=== PATIENT | female | born 1960 ===

== ENCOUNTER 2017-04-10 17:03 | Emergency (ER) | payer MEDICARE ==
[2017-04-10 17:04] VITALS: BMI 313171.9
[2017-04-10 17:13] VITALS: BP 136/85; PULSE 78; RESP 15; TEMP 98.2; O2SAT 95
[2017-04-10] MEDS ORDERED: Sodium Chloride 0.9% 1,000 ML IV ONE (17:41)
[2017-04-10] MEDS ORDERED: Alum-Mag Hydrox-Simethicone Susp (30 mL) PO STA (17:43)
[2017-04-10] MEDS ORDERED: Belladonna-Phenobarbital PO STA (17:43)
--- NOTE | 2017-04-10 17:49 | C.PDOC ---
History Of Present Illness 56 y/o female with PMHx of Gastritis presents to ED with recurrence of abdominal pain for 4 days, N/V/D, headache and dizziness. Patient reports subjective fever last night and took Pepto bismol with no relief. Symptoms previously developed prior to traveling to [facility] 3 months ago where she was hospitalized and treated with antibiotics for stomach infection. No other complaints at this time Time Seen by Provider: 04/10/17 17:32 Chief Complaint (Nursing): Abdominal Pain History Per: Patient History/Exam Limitations: no limitations Onset/Duration Of Symptoms: Days Associated Symptoms: Nausea, Vomiting, Diarrhea Exacerbating Factors: Food Past Medical History Reviewed: Historical Data, Nursing Documentation, Vital Signs Vital Signs: Last Vital Signs Temp 98.2 F 04/10/17 17:08 Pulse 78 04/10/17 17:08 Resp 15 04/10/17 17:08 BP 136/85 04/10/17 17:08 Pulse Ox 95 04/10/17 18:31 - Medical History PMH: Anxiety, Arthritis, Asthma, Depression, Diabetes, Gastritis, HTN, Hypercholesterolemia, Kidney Stones, Migraine, Chronic Kidney Disease Surgical History: Appendectomy, Endoscopy - [facility] Procedures CYSTOSCOPY NEC (08/09/01) INJECT/INFUSE ELECTROLYT (04/12/12) INJECT/INFUSE NEC (04/12/12) INSERT INDWELLING CATH (06/15/13) OTHER ENDOSCOPY OF SM INTEST (07/16/12) URETERAL CATHETERIZATION (08/09/01) Family History: States: Unknown Family Hx - Social History Hx Tobacco Use: No Hx Alcohol Use: No Hx Substance Use: No - Immunization History Hx Tetanus Toxoid Vaccination: No Hx Influenza Vaccination: No Hx Pneumococcal Vaccination: No Review Of Systems Constitutional: Positive for: Fever Cardiovascular: Negative for: Chest Pain Respiratory: Negative for: Shortness of Breath Gastrointestinal: Positive for: Nausea, Vomiting, Abdominal Pain, Diarrhea. Negative for: Constipation, Melena, Hematochezia, Hematemesis, Rectal Pain Genitourinary: Negative for: Dysuria Musculoskeletal: Negative for: Back Pain Neurological: Positive for: Headache, Dizziness. Negative for: Weakness Physical Exam - Physical Exam Appears: Non-toxic, No Acute Distress Skin: Warm, Dry, No Diaphoretic, No Pale, No Rash Head: Atraumatic, Normacephalic Eye(s): bilateral: Normal Inspection, EOMI Oral Mucosa: Moist Neck: Normal ROM Chest: Symmetrical Cardiovascular: Rhythm Regular Respiratory: Normal Breath Sounds, No Rales, No Rhonchi, No Wheezing Gastrointestinal/Abdominal: Soft, Tenderness (Epigastric tenderness), No Mass, No Distention, No Guarding, No Rebound Extremity: Bilateral: Atraumatic, No Pedal Edema, Normal Color And Temperature, Normal ROM Neurological/Psych: Oriented x3, Normal Speech, Normal Cognition, Other (No focal deficits) Gait: Steady ED Course And Treatment - Laboratory Results Result Diagrams: 04/10/17 17:50 04/10/17 17:50 Lab Interpretation: No Acute Changes O2 Sat by Pulse Oximetry: 95 (Room air ) Pulse Ox Interpretation: Normal Medical Decision Making Medical Decision Making: Impression: Abdominal pain epigastric, and history of gastritis, and likely H. pylori Plan: Labs, IV NS, GI cocktail Progress: Labs reviewed and unremarkable. Upon reevaluation, patient resting comfortably in no acute distress. Patient reports improvement of symptoms, no longer having abdominal pain or nausea. Patient feels comfortable going home and will be discharged. Patient given follow up instructions. Instructed to return to ER if symptoms worsen or new symptoms arise. Disposition Counseled Patient/Family Regarding: Diagnosis, Need For Followup, Rx Given - Disposition Referrals: Juan Antonio Chase MD [Staff Provider] - Chantal Boo MD [Staff Provider] - Disposition: HOME/ ROUTINE Disposition Time: 18:30 Condition: STABLE Additional Instructions: Vaya a hernandez mdico o la clnica en 2-5 diaz sin falta, para mas evaluacin. [place] los medicamentos kimo indicado. Volver a la светлана de emergencia en cualquier momento si los sntomas persisten o empeoran. Prescriptions: Ranitidine HCl 150 mg PO DAILY #30 tablet Instructions: Gastritis (DC) Print Language: POLISH - POA Present On Arrival: None - Clinical Impression Clinical Impression: Gastritis - PA / LATH HAND / Resident Statement MD/DO has reviewed & agrees with the documentation as recorded. - Scribe Statement The provider has reviewed the documentation as recorded by the Scribe Sanchez Campa All medical record entries made by the Scribe were at my direction and personally dictated by me. I have reviewed the chart and agree that the record accurately reflects my personal performance of the history, physical exam, medical decision making, and the department course for this patient. I have also personally directed, reviewed, and agree with the discharge instructions and disposition.
[2017-04-10] MEDS ORDERED: Sodium Chloride 0.9% 1,000 ML ONE (17:51)
[2017-04-10] MEDS ORDERED: Belladonna-Phenobarbital ONE (17:51)
[2017-04-10] MEDS ORDERED: Alum-Mag Hydrox-Simethicone Susp (30 mL) ONE (17:51)
[2017-04-10 18:03] LABS: BASO % 0.5 % (0.0-2.0); EOS % 0.4 % (0.0-4.0); HEMATOCRIT 35.4 % (34.0-47.0); LYMPH # 2.3 K/uL (1.0-4.3); LYMPH % 33.6 % (20.0-40.0); MEAN CORPUSCULAR HEMOGLOBIN 28.2 pg (27.0-31.0); MEAN CORPUSCULAR HGB CONC 32.8 g/dL (33.0-37.0); MONO # 0.9 K/uL (0.0-0.8); MONO % 13.4 % (0.0-10.0); RED CELL DISTRIBUTION WIDTH 12.6 % (11.5-14.5); WHITE BLOOD COUNT 6.9 K/uL (4.8-10.8)
[2017-04-10 18:15] LABS: CHLORIDE 97 mmol/L (98-107); POTASSIUM 3.7 mmol/L (3.6-5.2); SODIUM 139 mmol/L (132-148)
[2017-04-10 18:17] LABS: AST/SGOT 61 U/L (14-36); BILIRUBIN,TOTAL 0.5 mg/dL (0.2-1.3); CARBON DIOXIDE 34 mmol/L (22-30); GFR AFRICAN-AMERICAN > 60
[2017-04-10 18:18] LABS: ALB/GLOB RATIO 1.2 (1.0-2.1); ALKALINE PHOSPHATASE 53 U/L (38-126); ALT/SGPT 73 U/L (9-52); BLOOD UREA NITROGEN 10 mg/dL (7-17); CALCIUM 8.8 mg/dl (8.6-10.4); GLUCOSE,RANDOM 148 mg/dL (65-105); TOTAL PROTEIN 7.5 g/dL (6.3-8.3)
[2017-04-10 18:20] LABS: RBC URINE 2 /hpf (0-3); URINE BACTERIA OCC (<OCC); URINE BILIRUBIN NEGATIVE (NEGATIVE); URINE BLOOD NEGATIVE (NEGATIVE); URINE COLOR Yellow (YELLOW); URINE GLUCOSE (UA) NORMAL (Normal); URINE KETONE NEGATIVE (NEGATIVE); URINE LEUKOCYTE ESTERASE NEG Leu/uL (Negative); URINE PROTEIN 1+ mg/dL (NEGATIVE); URINE UROBILINOGEN NORMAL mg/dL (0.2-1.0); WBC URINE 2 /hpf (0-5)
== END 2017-04-10 18:40 | disposition home or self-care (01) ==
LOC: C.ER 17:03
DX: K29.70 Gastritis, unspecified, without bleeding (principal)
CPT/HCPCS: 80053; 81001; 83690; 85025; 96361; 96374; 96375; 99284; J2405; J7040

== ENCOUNTER 2017-05-02 16:08 | Emergency (ER) | payer MEDICARE ==
[2017-05-02 16:08] VITALS: BMI 313171.9
--- NOTE | 2017-05-02 16:43 | C.PDOC ---
History Of Present Illness 56 y/o female pmhx asthma, HTN and pulmonary embolism presents to the ED with complaints of body aches, pressure in her neck and shoulders, swelling to hands , feet and face and chest pain. 3 days ago, pt states she woke up with pressure to back of her neck which radiated to her shoulders and down her back; and pain to finger nails and toe nails. Pt reports difficulty ambulating due to pain; also reports feeling dizzy. Yesterday, sharp intermittent chest pain onset to center of chest 06/25. Pain increases with movement of chest wall. Pt concerned considering history of PE so came to ED for evaluation. Pt denies SOB, fever, nausea, vomiting, abdominal pain or any other complaints. Time Seen by Provider: 05/02/17 16:18 Chief Complaint (Nursing): Chest Pain History Per: Patient History/Exam Limitations: no limitations Onset/Duration Of Symptoms: Days Current Symptoms Are (Timing): Still Present Severity: Severe Pain Scale Rating Of: 8 Quality: Sharp Exacerbating Factors: Movement Alleviating Factors: None Recent travel outside of the [place]: No Past Medical History Reviewed: Historical Data, Nursing Documentation, Vital Signs - Medical History PMH: Anxiety, Arthritis, Asthma, Depression, Diabetes, Gastritis, HTN, Hypercholesterolemia, Kidney Stones, Migraine, Chronic Kidney Disease Surgical History: Appendectomy, Endoscopy - [facility] Procedures CYSTOSCOPY NEC (08/09/01) INJECT/INFUSE ELECTROLYT (04/12/12) INJECT/INFUSE NEC (04/12/12) INSERT INDWELLING CATH (06/15/13) OTHER ENDOSCOPY OF SM INTEST (07/16/12) URETERAL CATHETERIZATION (08/09/01) Family History: States: Unknown Family Hx - Social History Hx Tobacco Use: No Hx Alcohol Use: No Hx Substance Use: No - Immunization History Hx Tetanus Toxoid Vaccination: No Hx Influenza Vaccination: No Hx Pneumococcal Vaccination: No Review Of Systems Except As Marked, All Systems Reviewed And Found Negative. Constitutional: Negative for: Fever, Chills Cardiovascular: Positive for: Chest Pain, Edema (swelling to hands, feet and face) Respiratory: Negative for: Shortness of Breath Gastrointestinal: Negative for: Nausea, Vomiting, Abdominal Pain Musculoskeletal: Positive for: Other (pressure to back of neck and shoulders; pain to finger and toe nails) Physical Exam - Physical Exam Appears: Non-toxic, No Acute Distress Skin: Warm, Dry, No Rash Head: Atraumatic, Normacephalic Ear(s): Bilateral: Normal Nose: Normal Oral Mucosa: Moist Throat: Normal, No Erythema Neck: Normal, Normal ROM, No Midline Cervical Tenderness, No Paracervical Tenderness, Supple Chest: Symmetrical, Tenderness (mid chest wall) Cardiovascular: Rhythm Regular, No Murmur Respiratory: Normal Breath Sounds, No Accessory Muscle Use, No Rales, No Rhonchi , No Wheezing Gastrointestinal/Abdominal: Normal Exam, Soft, No Tenderness, Other (obese) Extremity: Normal ROM, No Pedal Edema, Other (no pitting edema noted) Extremity: Bilateral: Atraumatic Pulses: Left Dorsalis Pedis: Normal, Right Dorsalis Pedis: Normal Neurological/Psych: Oriented x3, Normal Speech, Normal Cognition ED Course And Treatment - Laboratory Results Result Diagrams: 05/02/17 16:57 05/02/17 16:57 Progress Note: Upon further discussion patient reveals similar pains in neck, shoulders and back many times in the past. Pt seen by specialist with MRI done, told has "disc problems." Pt also reports similar episodes of dizziness and feeling unsteady in the past for which she has been evaluated by her physician. Medical Decision Making Medical Decision Making: patient feeling better, she will be discharged pending the arrival of daughter Normal Abrahan, cory PE Disposition Counseled Patient/Family Regarding: Studies Performed, Diagnosis - Disposition Referrals: Chantal Boo MD [Staff Provider] - Disposition: HOME/ ROUTINE Disposition Time: 18:44 Condition: STABLE Prescriptions: traMADol/Acetaminophen [Ultracet 37.5/325 mg] 1 tab PO TID PRN #15 tab PRN Reason: pain Instructions: Back Pain (ED) Forms: Gen Discharge Inst Brazilian - POA Present On Arrival: None - Clinical Impression Clinical Impression: Chest discomfort, Back pain - Scribe Statement The provider has reviewed the documentation as recorded by the Vincent Senior Provider Attestation: All medical record entries made by the Vincent were at my direction and personally dictated by me. I have reviewed the chart and agree that the record accurately reflects my personal performance of the history, physical exam, medical decision making, and the department course for this patient. I have also personally directed, reviewed, and agree with the discharge instructions and disposition.
[2017-05-02] MEDS ORDERED: Aspirin 325 mg EC Tablets PO STA (16:54)
[2017-05-02] MEDS ORDERED: Aspirin 325 mg EC Tablets PO ONE (17:00)
[2017-05-02 17:02] LABS: BASO % 0.4 % (0.0-2.0); EOS % 0.3 % (0.0-4.0); HEMATOCRIT 34.9 % (34.0-47.0); LYMPH % 32.1 % (20.0-40.0); MEAN CORPUSCULAR HEMOGLOBIN 28.1 pg (27.0-31.0); MEAN CORPUSCULAR HGB CONC 32.3 g/dL (33.0-37.0); MONO # 0.7 K/uL (0.0-0.8); MONO % 11.1 % (0.0-10.0); RED CELL DISTRIBUTION WIDTH 13.2 % (11.5-14.5); WHITE BLOOD COUNT 6.2 K/uL (4.8-10.8)
[2017-05-02 17:14] LABS: CHLORIDE 101 mmol/L (98-107); POTASSIUM 4.2 mmol/L (3.6-5.2); SODIUM 139 mmol/L (132-148)
[2017-05-02 17:16] LABS: GFR AFRICAN-AMERICAN > 60
[2017-05-02 17:17] LABS: ALB/GLOB RATIO 1.3 (1.0-2.1); ALKALINE PHOSPHATASE 46 U/L (38-126); ALT/SGPT 32 U/L (9-52); AST/SGOT 30 U/L (14-36); BILIRUBIN,TOTAL 0.5 mg/dL (0.2-1.3); BLOOD UREA NITROGEN 13 mg/dL (7-17); CARBON DIOXIDE 29 mmol/L (22-30); GLUCOSE,RANDOM 139 mg/dL (65-105); TOTAL PROTEIN 7.1 g/dL (6.3-8.3)
[2017-05-02 17:18] LABS: CALCIUM 9.5 mg/dl (8.6-10.4)
--- NOTE | 2017-05-02 17:23 | RAD ---
PROCEDURE: CHEST RADIOGRAPH, 1 VIEW HISTORY: Chest pain COMPARISON: 11/14/2016. FINDINGS: LUNGS: The lungs are well inflated and clear. PLEURA: No pneumothorax or pleural fluid seen. CARDIOVASCULAR: Normal. OSSEOUS STRUCTURES: No significant abnormalities. VISUALIZED UPPER ABDOMEN: Normal. OTHER FINDINGS: None. IMPRESSION: No active pulmonary no disease.
[2017-05-02 19:21] VITALS: BP 110/75; PULSE 85; RESP 18; TEMP 97.9; O2SAT 99
--- NOTE | 2017-05-05 21:32 | CARD ---
APPROVED REPORT EKG Measurement Heart [id number] <Conclusion> Normal sinus rhythm Normal ECG
== END 2017-05-02 20:15 | disposition home or self-care (01) ==
LOC: C.ER 16:08
DX: M54.9 Dorsalgia, unspecified (principal); R07.89 Other chest pain; I12.9 Hypertensive chronic kidney disease with stage 1 through stage 4 chronic kidney disease, or unspecified chronic kidney disease; N18.9 Chronic kidney disease, unspecified; E11.9 Type 2 diabetes mellitus without complications; E78.00 Pure hypercholesterolemia, unspecified; M19.90 Unspecified osteoarthritis, unspecified site
CPT/HCPCS: 71010; 80053; 83880; 84484; 85025; 85378; 93005; 96374; 99284; G0480; J1885

== ENCOUNTER 2017-08-21 14:05 | Emergency (ER) | payer MEDICARE ==
[2017-08-21 14:05] VITALS: BMI 313171.9
[2017-08-21] MEDS ORDERED: Sodium Chloride 0.9% 1,000 ML IV ONE (15:20)
--- NOTE | 2017-08-21 15:38 | C.PDOC ---
History Of Present Illness 56 y/o female with past medical history of DM, HTN, HLD, Asthma and Gastritis presents to ED with complaints of abdominal pain since yesterday with associated x4 episodes of vomiting. Patient states last 3 episodes of vomiting had "some blood in it". Patient denies recent travel, fever, chills, diarrhea, back pain or any other complaints at this time. PMD: Dr. Jayce Edwards Time Seen by Provider: 08/21/17 14:50 Chief Complaint (Nursing): Abdominal Pain History Per: Patient History/Exam Limitations: no limitations Onset/Duration Of Symptoms: Days Current Symptoms Are (Timing): Still Present Location Of Pain/Discomfort: Epigastric Past Medical History Reviewed: Historical Data, Nursing Documentation, Vital Signs Vital Signs: Last Vital Signs Temp 97.7 F 08/21/17 19:26 Pulse 79 08/21/17 19:26 Resp 18 08/21/17 19:26 BP 111/78 08/21/17 19:26 Pulse Ox 97 08/21/17 19:26 - Medical History PMH: Anxiety, Arthritis, Asthma, Depression, Diabetes, Gastritis, HTN, Hypercholesterolemia, Kidney Stones, Migraine, Pulmonary Embolism, Chronic Kidney Disease Surgical History: Appendectomy, Endoscopy - [facility] Procedures CYSTOSCOPY NEC (08/09/01) INJECT/INFUSE ELECTROLYT (04/12/12) INJECT/INFUSE NEC (04/12/12) INSERT INDWELLING CATH (06/15/13) OTHER ENDOSCOPY OF SM INTEST (07/16/12) URETERAL CATHETERIZATION (08/09/01) Family History: States: No Known Family Hx - Social History Hx Tobacco Use: No Hx Alcohol Use: No Hx Substance Use: No - Immunization History Hx Tetanus Toxoid Vaccination: No Hx Influenza Vaccination: No Hx Pneumococcal Vaccination: No Review Of Systems Except As Marked, All Systems Reviewed And Found Negative. Gastrointestinal: Positive for: Vomiting, Abdominal Pain Physical Exam - Physical Exam Appears: Non-toxic, No Acute Distress Skin: Normal Color, Warm, Dry, No Rash Head: Atraumatic, Normacephalic Oral Mucosa: Moist Neck: Normal ROM, Supple Chest: Symmetrical Cardiovascular: Rhythm Regular Respiratory: Normal Breath Sounds, No Rales, No Rhonchi, No Wheezing Gastrointestinal/Abdominal: Bowel Sounds (Active), Tenderness (Epigastric), No Guarding, No Rebound Extremity: Normal ROM, Capillary Refill (<2 seconds) Neurological/Psych: Oriented x3 ED Course And Treatment - Laboratory Results Result Diagrams: 08/21/17 15:35 08/21/17 15:35 ECG: Interpreted By Me, Viewed By Me ECG Rhythm: Sinus Rhythm Rate From EC (bpm) O2 Sat by Pulse Oximetry: 95 (ra) Pulse Ox Interpretation: Normal Medical Decision Making Medical Decision Making: Plan: CT scan abdomen/pelvic, ECG, UA, Blood work, CXR, IV fluids, Morphine ordered Progress: Patient had Colonoscopy in December 2016 Ct scan reviewed and showed findings not acute Patient discharged home with pain medication and instructed to follow up with PMD Disposition - Disposition Disposition Time: 19:02 Condition: IMPROVED Additional Instructions: follow up with your doctor in 2 days call to make an appointment take medications as prescribed return to hospital if symptoms worsens or progress Prescriptions: Acetaminophen with Codeine [Tylenol with Codeine #3 Tablet] 1 each PO QID #15 tablet Docusate Sodium [Colace] 100 mg PO BID #20 capsule Forms: [employer] (German) - Clinical Impression Clinical Impression: Abdominal pain - Scribe Statement The provider has reviewed the documentation as recorded by the Scribvalentino Campa All medical record entries made by the Winteribvalentino were at my direction and personally dictated by me. I have reviewed the chart and agree that the record accurately reflects my personal performance of the history, physical exam, medical decision making, and the department course for this patient. I have also personally directed, reviewed, and agree with the discharge instructions and disposition.
[2017-08-21 15:40] LABS: BASO % 0.4 % (0.0-2.0); EOS % 0.3 % (0.0-4.0); HEMATOCRIT 35.1 % (34.0-47.0); LYMPH # 2.1 K/uL (1.0-4.3); LYMPH % 25.9 % (20.0-40.0); MEAN CELL VOLUME 86.1 fL (81.0-99.0); MEAN CORPUSCULAR HEMOGLOBIN 28.9 pg (27.0-31.0); MEAN CORPUSCULAR HGB CONC 33.6 g/dL (33.0-37.0); MEAN PLATELET VOLUME 10.3 fL (7.2-11.7); MONO # 0.9 K/uL (0.0-0.8); MONO % 10.5 % (0.0-10.0); NRBC % 0.2 % (0.0-2.0); WHITE BLOOD COUNT 8.1 K/uL (4.8-10.8)
[2017-08-21 15:48] LABS: CHLORIDE 98 mmol/L (98-107); SODIUM 137 mmol/L (132-148)
[2017-08-21 15:49] LABS: POTASSIUM 3.9 mmol/L (3.6-5.2)
[2017-08-21 15:50] LABS: GFR AFRICAN-AMERICAN > 60
[2017-08-21 15:51] LABS: ALKALINE PHOSPHATASE 42 U/L (38-126); ALT/SGPT 46 U/L (9-52); AST/SGOT 28 U/L (14-36); BILIRUBIN,TOTAL 0.5 mg/dL (0.2-1.3); BLOOD UREA NITROGEN 13 mg/dL (7-17); CARBON DIOXIDE 27 mmol/L (22-30); GLUCOSE,RANDOM 91 mg/dL (65-105); TOTAL PROTEIN 8.4 g/dL (6.3-8.3)
[2017-08-21 15:52] LABS: CALCIUM 9.6 mg/dl (8.6-10.4)
[2017-08-21 15:56] LABS: RBC URINE 1 /hpf (0-3); URINE BACTERIA RARE (<OCC); URINE BILIRUBIN NEGATIVE (NEGATIVE); URINE BLOOD NEGATIVE (NEGATIVE); URINE COLOR Yellow (YELLOW); URINE GLUCOSE (UA) NORMAL (Normal); URINE KETONE NEGATIVE (NEGATIVE); URINE LEUKOCYTE ESTERASE NEG Leu/uL (Negative); URINE PROTEIN NEGATIVE (NEGATIVE); URINE UROBILINOGEN NORMAL mg/dL (0.2-1.0); WBC URINE 1 /hpf (0-5)
[2017-08-21] MEDS ORDERED: Iohexol 350mg/ml 100 ML ONE (16:14)
[2017-08-21 17:39] VITALS: RESP 18
[2017-08-21 19:27] VITALS: BP 111/78; PULSE 79; TEMP 97.7
--- NOTE | 2017-08-21 20:01 | RAD ---
PROCEDURE: CHEST RADIOGRAPH, 1 VIEW HISTORY: Abdominal pain COMPARISON: 05/02/2017. FINDINGS: LUNGS: The lungs are well inflated and clear. PLEURA: No pneumothorax or pleural fluid seen. CARDIOVASCULAR: Normal. OSSEOUS STRUCTURES: No significant abnormalities. VISUALIZED UPPER ABDOMEN: Normal. OTHER FINDINGS: None. IMPRESSION: No active pulmonary disease.
--- NOTE | 2017-08-21 20:03 | CT ---
PROCEDURE: CT Abdomen and Pelvis with contrast HISTORY: abd pain COMPARISON: Abdomen pelvis CT with contrast 11/14/2016. TECHNIQUE: Contrast dose: Omnipaque 350, 100 cc Radiation dose: Total exam DLP = 914.44 mGy-cm. This CT exam was performed using one or more of the following dose reduction techniques: Automated exposure control, adjustment of the mA and/or kV according to patient size, and/or use of iterative reconstruction technique. FINDINGS: LOWER THORAX: Small hiatal hernia is identified with the lung bases otherwise unremarkable as imaged. LIVER: There is increased diffuse fatty infiltration liver without focal mass identified. No definite intrahepatic biliary dilatation. GALLBLADDER AND BILE DUCTS: Unremarkable. PANCREAS: Unremarkable. No gross lesion or ductal dilatation. SPLEEN: Unremarkable. ADRENALS: Unremarkable. No mass. KIDNEYS AND URETERS: Punctate intrarenal calculus measures 3 mm at the midpole left kidney with a similar calcified upper pole right kidney. 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 No left hydronephrosis. Mild some right hydroureteronephrosis identified when chronic basis once again. Etiology is unclear as multiple phleboliths are seen near the course of the distal right ureter but not within the right ureter specifically. Urinary bladder is only minimally distended. No intraluminal radiodense calculi are related. VASCULATURE: Unremarkable. No aortic aneurysm. BOWEL: Trace left colonic diverticulosis without diverticulitis. Persistent thickening of the distal rectosigmoid, particularly the right side, remains concerning and further clinical correlation is advised. No obstruction. APPENDIX: No CT evidence to suggest appendicitis. PERITONEUM: Unremarkable. No free fluid. No free air. LYMPH NODES: Unremarkable. No enlarged lymph nodes. BLADDER: Unremarkable. REPRODUCTIVE: Unremarkable. BONES: No acute fracture. OTHER FINDINGS: None. IMPRESSION: 1. Chronic [id number] right hydronephrosis is of indeterminate etiology considered distal right ureteral stricture or loosing calculus. Punctate intrarenal calculi identified bilaterally with no left hydronephrosis apparent. 2. Increased hepatic steatosis without focal mass appreciable. 3. Small hiatal hernia. 4. Trace left colonic diverticulosis without diverticulitis again evident. 5. Persistent rectosigmoid thickening, particularly in the right side of the distal rectum. Clinically core for potential neoplasm.
[2017-08-26 00:41] VITALS: O2SAT 95
== END 2017-08-21 19:55 | disposition home or self-care (01) ==
LOC: C.ER 14:05
DX: R10.9 Unspecified abdominal pain (principal); E11.9 Type 2 diabetes mellitus without complications; I10 Essential (primary) hypertension; E78.5 Hyperlipidemia, unspecified
CPT/HCPCS: 71010; 74177; 80053; 81001; 83690; 84484; 85025; 96374; 96375; 99285; C9113; J2270; J2405; J7040; Q9967

== ENCOUNTER 2017-09-03 14:22 | Emergency (ER) | payer MEDICARE ==
[2017-09-03 14:23] VITALS: BMI 313171.9
[2017-09-03] MEDS ORDERED: Aluminum Hydroxide/Magnesium Hydroxide Susp (30 mL) PO STA (14:59)
[2017-09-03] MEDS ORDERED: Belladonna-Phenobarbital PO STA (14:59)
[2017-09-03] MEDS ORDERED: Sodium Chloride 0.9% 1,000 ML IV ONE (14:59)
--- NOTE | 2017-09-03 15:07 | C.PDOC ---
History Of Present Illness 56 y/o female with PMH DM, HTN, Asthma and Gastritis presents to ED with complaints of diffuse abdominal pain with associated nausea and vomiting worse with PO intake since yesterday. Patient also complaints of right lower back pain and constipation, last bowel movement was yesterday and prior to then last bowel movement was 4 days ago. Patient was seen at ED 1 week ago for same complaints and was advised to follow up with PMD. Patient reports she followed up with PMD, and is compliant with medications . Patient denies fever, chills, bowel/bladder incontinence, urinary symptoms or any other complaints at this time. Time Seen by Provider: 09/03/17 14:45 Chief Complaint (Nursing): Abdominal Pain History Per: Patient History/Exam Limitations: no limitations Onset/Duration Of Symptoms: Days Current Symptoms Are (Timing): Still Present Context: Food Location Of Pain/Discomfort: Diffuse Radiation Of Pain To:: Back Quality Of Discomfort: Cramping, "Pain" Associated Symptoms: Nausea Last Bowel Movement: Yesterday Past Medical History Reviewed: Historical Data, Nursing Documentation, Vital Signs Vital Signs: Last Vital Signs Temp 98.7 F 09/03/17 15:16 Pulse 85 09/03/17 15:16 Resp 18 09/03/17 15:16 BP 116/75 09/03/17 15:16 Pulse Ox 98 09/03/17 15:16 - Medical History PMH: Anxiety, Arthritis, Asthma, Depression, Diabetes, Gastritis, HTN, Hypercholesterolemia, Kidney Stones, Migraine, Pulmonary Embolism, Chronic Kidney Disease Surgical History: Appendectomy, Endoscopy - [facility] Procedures CYSTOSCOPY NEC (08/09/01) INJECT/INFUSE ELECTROLYT (04/12/12) INJECT/INFUSE NEC (04/12/12) INSERT INDWELLING CATH (06/15/13) OTHER ENDOSCOPY OF SM INTEST (07/16/12) URETERAL CATHETERIZATION (08/09/01) Family History: States: No Known Family Hx - Social History Hx Tobacco Use: No Hx Alcohol Use: No Hx Substance Use: No - Immunization History Hx Tetanus Toxoid Vaccination: No Hx Influenza Vaccination: No Hx Pneumococcal Vaccination: No Review Of Systems Constitutional: Negative for: Fever, Chills Gastrointestinal: Positive for: Nausea, Vomiting, Abdominal Pain, Constipation. Negative for: Hematochezia Genitourinary: Negative for: Dysuria, Incontinence, Hematuria Musculoskeletal: Positive for: Back Pain Skin: Negative for: Rash Physical Exam - Physical Exam Appears: Non-toxic, No Acute Distress Skin: Warm, Dry, No Rash Head: Atraumatic, Normacephalic Eye(s): bilateral: Normal Inspection Oral Mucosa: Moist Neck: Normal ROM, Supple Cardiovascular: Rhythm Regular Respiratory: Normal Breath Sounds, No Rales, No Rhonchi, No Wheezing Gastrointestinal/Abdominal: Bowel Sounds (active), Soft, Tenderness (Diffuse), No Mass, No Distention, No Guarding, No Rebound Back: No CVA Tenderness Extremity: Bilateral: Atraumatic, Normal ROM Neurological/Psych: Oriented x3, Normal Speech Gait: Steady ED Course And Treatment - Laboratory Results Result Diagrams: 09/03/17 15:16 09/03/17 15:16 Lab Interpretation: No Acute Changes Medical Decision Making Medical Decision Making: Impression: abdominal pain Prior Records reviewed: Patient last seen 08/21/17 for abdominal pain, had labs and CT which showed diverticulosis and right hydronephrosis. Patient discharged with rx Tylenol with codeine and colace Plan: * Blood work * UA * Pepcid, Zofran * Abdomen Imaging * IV fluids Progress: Labs reviewed, tashi cute findings Xray shows no complete obstruction. No free air. A partial / intermittent mid to distal small bowel obstruction is possible. A focal ileus versus a top normal normal small bowel gaseous distended loop are all considerations. Findings are nonspecific. Correlate clinically. Consider follow-up abdominal imaging if concern for small-bowel obstruction exists. Stool retention, as per radiology report Patient re-evaluated and states she feels unchanged, she appears in no distress but states she still has pain to abdomen and points to midabdomen. will order abdominal CT. 175 CT scan reviewed with no evidence of small bowel or colonic obstruction. 180 Patient reevaluated and remains in no distress. She states pain is has improved is minimal and dull. abdomen is soft, nondistended and no peritoneal signs. I discussed results and provided copy of reports. I advised patient on dietary changes to help with constipation and plan is to discharge home with Rx. Patient verbalized understanding and is agreeable with plan for discharge. Disposition Counseled Patient/Family Regarding: Studies Performed, Diagnosis, Need For Followup, Rx Given - Disposition Referrals: Jayce Edwards MD [Medical Doctor] - Disposition: HOME/ ROUTINE Disposition Time: 18:03 Condition: STABLE Additional Instructions: Vanessa laboratorios y CT no muestran ninguna infeccin y las imgenes muestran estreimiento. [place] muchos lquidos y tome medicamentos para ayudar con el estre imiento. Coma ms jess. [place] bentilo segn sea necesario para los calambres abdominales. Patti un seguimiento con hernandez mdico principal en 1 semana para mell evaluacin ms detallada. Prescriptions: Dicyclomine [Bentyl] 20 mg PO Q8 PRN #20 tab PRN Reason: Gi Distress Magnesium Citrate [Citrate of Mag] 300 ml PO ONCE #1 bottle Instructions: Acute Abdominal Pain (DC) Forms: [employer] (Occitan) Print Language: LAO - POA Present On Arrival: None - Clinical Impression Clinical Impression: Constipation, Abdominal pain - PA / MONOGRAM MACHINE OPERATOR / Resident Statement MD/DO has reviewed & agrees with the documentation as recorded. - Scribe Statement The provider has reviewed the documentation as recorded by the Winteribvalentino Campa All medical record entries made by the Vincent were at my direction and personally dictated by me. I have reviewed the chart and agree that the record accurately reflects my personal performance of the history, physical exam, medical decision making, and the department course for this patient. I have also personally directed, reviewed, and agree with the discharge instructions and disposition.
[2017-09-03] MEDS ORDERED: Belladonna-Phenobarbital ONE (15:08)
[2017-09-03] MEDS ORDERED: Sodium Chloride 0.9% 1,000 ML ONE (15:09)
[2017-09-03] MEDS ORDERED: Aluminum Hydroxide/Magnesium Hydroxide Susp (30 mL) ONE (15:09)
[2017-09-03 15:21] LABS: BASO % 0.5 % (0.0-2.0); EOS % 0.3 % (0.0-4.0); HEMATOCRIT 33.8 % (34.0-47.0); LYMPH % 33.7 % (20.0-40.0); MEAN CELL VOLUME 86.2 fL (81.0-99.0); MEAN CORPUSCULAR HEMOGLOBIN 29.5 pg (27.0-31.0); MEAN CORPUSCULAR HGB CONC 34.2 g/dL (33.0-37.0); MEAN PLATELET VOLUME 9.5 fL (7.2-11.7); MONO # 0.7 K/uL (0.0-0.8); MONO % 11.4 % (0.0-10.0); RED CELL DISTRIBUTION WIDTH 12.8 % (11.5-14.5)
[2017-09-03 15:38] LABS: CHLORIDE 98 mmol/L (98-107); SODIUM 134 mmol/L (132-148)
[2017-09-03 15:40] LABS: ALB/GLOB RATIO 1.1 (1.0-2.1); ALKALINE PHOSPHATASE 52 U/L (38-126); AST/SGOT 23 U/L (14-36); BILIRUBIN,TOTAL 0.3 mg/dL (0.2-1.3); BLOOD UREA NITROGEN 11 mg/dL (7-17); CARBON DIOXIDE 27 mmol/L (22-30); GFR AFRICAN-AMERICAN > 60; RBC URINE 3 /hpf (0-3); TOTAL PROTEIN 7.8 g/dL (6.3-8.3); URINE BACTERIA RARE (<OCC); URINE BILIRUBIN NEGATIVE (NEGATIVE); URINE BLOOD NEGATIVE (NEGATIVE); URINE COLOR Yellow (YELLOW); URINE GLUCOSE (UA) NORMAL (Normal); URINE KETONE NEGATIVE (NEGATIVE); URINE LEUKOCYTE ESTERASE NEG Leu/uL (Negative); URINE PROTEIN NEGATIVE (NEGATIVE); URINE UROBILINOGEN NORMAL mg/dL (0.2-1.0); WBC URINE 1 /hpf (0-5)
[2017-09-03 15:41] LABS: ALT/SGPT 38 U/L (9-52); CALCIUM 9.2 mg/dl (8.6-10.4); GLUCOSE,RANDOM 170 mg/dL (65-105)
--- NOTE | 2017-09-03 16:06 | RAD ---
HISTORY: abd pain COMPARISON: CT pelvic study 08/21/2017 FINDINGS: BOWEL: The mid abdominal to left paracentral mildly dilated small bowel loop is noted No obstruction. Extensive left and right colonic stool retention No free air. BONES: Mild thoraco lumbar spondylosis. OTHER FINDINGS: The punctate right renal CT calculi not appreciated on this less sensitive exam IMPRESSION: No complete obstruction. No free air. A partial / intermittent mid to distal small bowel obstruction is possible. A focal ileus versus a top normal normal small bowel gaseous distended loop are all considerations. Findings are nonspecific. Correlate clinically. Consider follow-up abdominal imaging if concern for small-bowel obstruction exists Stool retention
[2017-09-03] MEDS ORDERED: Iodixanol 320 MG/ML 100 ML BOTTLE IV ONE (16:54)
--- NOTE | 2017-09-03 17:55 | CT ---
PROCEDURE: CT Abdomen and Pelvis with contrast HISTORY: Abdominal pain, possible SBO or ileus COMPARISON: 08/21/2017 CT abdomen and pelvis TECHNIQUE: Contrast dose: 150 cc Visipaque 320 Radiation dose: Total exam DLP = 852.30 mGy-cm. This CT exam was performed using one or more of the following dose reduction techniques: Automated exposure control, adjustment of the mA and/or kV according to patient size, and/or use of iterative reconstruction technique. FINDINGS: LOWER THORAX: Unremarkable. Incidental finding(s): Small hiatal hernia. LIVER: Hepatic steatosis. No focal masses. No intrahepatic bile duct dilatation or perihepatic ascites. GALLBLADDER AND BILE DUCTS: Unremarkable. PANCREAS: Unremarkable. No gross lesion or ductal dilatation. SPLEEN: Unremarkable. ADRENALS: Unremarkable. No mass. KIDNEYS AND URETERS: Right kidney: Atrophy, cortical thinning, irregularity suggestive of prior infectious process, small infarcts in the kidney. Commensurate dilatation of the right collecting system and proximal ureter. Contrast-enhancing characteristics of the collecting system and ureter may represent a component of ureteritis, pyelitis. No obstructing calculus identified. No interval change compared to the previous study. Left kidney: Unremarkable kidney and ureter. Renal calculi identified on the prior study are barely perceptible due to the nephrographic phase, there is no interval change. VASCULATURE: Unremarkable. No aortic aneurysm. BOWEL: Constipation without fecal impaction or obstruction. No evidence of small bowel obstruction. Normal luminal caliber of small bowel and colon, unchanged compared to the prior CT scan. APPENDIX: Normal appendix. PERITONEUM: Unremarkable. No free fluid. No free air. LYMPH NODES: Unremarkable. No enlarged lymph nodes. BLADDER: Unremarkable. REPRODUCTIVE: Unremarkable. BONES: No acute fracture. OTHER FINDINGS: None. IMPRESSION: No acute findings related to/accounting for the clinical presentation. , No significant interval change compared to the prior examination(s). . Specifically, no evidence of small bowel or colonic obstruction. Additional benign and/or incidental findings described above.
[2017-09-03 18:26] VITALS: BP 111/76; PULSE 77; RESP 20; TEMP 97.7; O2SAT 99
== END 2017-09-03 18:26 | disposition home or self-care (01) ==
LOC: C.ER 14:22
DX: R10.9 Unspecified abdominal pain (principal); K59.00 Constipation, unspecified; E11.9 Type 2 diabetes mellitus without complications; I10 Essential (primary) hypertension
CPT/HCPCS: 74000; 74177; 80053; 81001; 83690; 85025; 96361; 96374; 96375; 99283; J2405; J7040; Q9967

== ENCOUNTER 2018-04-20 19:38 | Emergency (ER) | payer MEDICARE ==
[2018-04-20 19:39] VITALS: BMI 313171.9
[2018-04-20 20:21] VITALS: BP 123/72; PULSE 81; RESP 18; TEMP 98.4; O2SAT 99
[2018-04-20 20:50] LABS: SQUAMOUS EPITHIAL 1 /hpf (0-5); URINE BACTERIA RARE (<OCC); URINE BILIRUBIN NEGATIVE (NEGATIVE); URINE BLOOD 3+ (NEGATIVE); URINE CLARITY Hazy (Clear); URINE COLOR Yellow (YELLOW); URINE GLUCOSE (UA) NORMAL (Normal); URINE LEUKOCYTE ESTERASE 2+ Leu/uL (Negative); URINE PROTEIN 1+ mg/dL (NEGATIVE); URINE UROBILINOGEN NORMAL mg/dL (0.2-1.0)
--- NOTE | 2018-04-20 21:49 | C.PDOC ---
History Of Present Illness 57 year old female presents to the ER with a complaint of suprapubic pain and dysuria for the past 2 days that is now radiating to her lower back. Patient reports she has a Hx of similar symptoms in the past that usually resolve on their own. Denies hematuria, fever, vomiting, and diarrhea. Time Seen by Provider: 04/20/18 20:44 Chief Complaint (Nursing): Female Genitourinary History Per: Patient History/Exam Limitations: no limitations Onset/Duration Of Symptoms: Days Current Symptoms Are (Timing): Still Present Quality Of Discomfort: Unable To Describe Associated Symptoms: Urinary Symptoms ((+) dysuria (-) hematuria). denies: Fever, Chills, Nausea, Vomiting Alleviating Factors: None Recent travel outside of the [place]: No Abnormal Vaginal Bleeding: No Past Medical History Reviewed: Historical Data, Nursing Documentation, Vital Signs Vital Signs: Last Vital Signs Temp 98.4 F 04/20/18 20:15 Pulse 81 04/20/18 20:15 Resp 18 04/20/18 20:15 BP 123/72 04/20/18 20:15 Pulse Ox 99 04/20/18 21:55 - Medical History PMH: Anxiety, Arthritis, Asthma, Depression, Diabetes, Gastritis, HTN, Hypercholesterolemia, Kidney Stones, Migraine, Pulmonary Embolism, Chronic Kidney Disease Surgical History: Appendectomy, Endoscopy - [facility] Procedures CYSTOSCOPY NEC (08/09/01) INJECT/INFUSE ELECTROLYT (04/12/12) INJECT/INFUSE NEC (04/12/12) INSERT INDWELLING CATH (06/15/13) OTHER ENDOSCOPY OF SM INTEST (07/16/12) URETERAL CATHETERIZATION (08/09/01) Family History: States: Unknown Family Hx - Social History Hx Tobacco Use: No Hx Alcohol Use: No Hx Substance Use: No - Immunization History Hx Tetanus Toxoid Vaccination: No Hx Influenza Vaccination: No Hx Pneumococcal Vaccination: No Review Of Systems Constitutional: Negative for: Fever Gastrointestinal: Positive for: Abdominal Pain. Negative for: Nausea, Vomiting Genitourinary: Positive for: Dysuria. Negative for: Hematuria Musculoskeletal: Positive for: Back Pain (radiating from suprapubic area) Physical Exam - Physical Exam Appears: Non-toxic Skin: Normal Color, Warm, Dry Head: Atraumatic, Normacephalic Eye(s): bilateral: Normal Inspection Oral Mucosa: Moist Chest: Symmetrical, No Tenderness Cardiovascular: Rhythm Regular Respiratory: Normal Breath Sounds, No Rales, No Rhonchi, No Wheezing Gastrointestinal/Abdominal: Soft, Tenderness (Suprapubic), No Guarding, No Rebound Back: No CVA Tenderness Neurological/Psych: Oriented x3, Normal Speech ED Course And Treatment O2 Sat by Pulse Oximetry: 99 (room air) Pulse Ox Interpretation: Normal Progress Note: UA sent, results were positive for UTI, cultures sent. Patient given macrobid and pyridium, she is resting comfortably in no distress, tolerating PO, vitals are stable, will discharge on PO antibiotics and advise to follow up with PMD or return if symptoms worsen. Disposition - Disposition Referrals: Non [facility] Provider, [Primary Care Provider] - Disposition: HOME/ ROUTINE Disposition Time: 21:46 Condition: STABLE Additional Instructions: Please follow up with PMD Increase PO fluids Take medications as directed Return to ER if fever, vomiting, severe pain despite meds or worse Prescriptions: Nitrofurantoin Macrocrystals [Macrobid] 1 cap PO BID #14 cap Phenazopyridine HCl [Pyridium] 100 mg PO TID #6 tab Tramadol HCl [Ultram] 50 mg PO Q6H #14 tab Instructions: Urinary Tract Infection, Adult (DC) Forms: [employer] (Turkish) Print Language: HUNGARIAN - Clinical Impression Clinical Impression: Urinary tract infection - PA / COMPUTER CONSULTANT / Resident Statement MD/DO has reviewed & agrees with the documentation as recorded. - Scribe Statement The provider has reviewed the documentation as recorded by the Scribe Tom Alonso All medical record entries made by the Scribe were at my direction and personally dictated by me. I have reviewed the chart and agree that the record accurately reflects my personal performance of the history, physical exam, medical decision making, and the department course for this patient. I have also personally directed, reviewed, and agree with the discharge instructions and disposition.
== END 2018-04-20 22:15 | disposition home or self-care (01) ==
LOC: C.ER 19:38 → SUPCPDRO 19:38 → C.ER 22:15
DX: N39.0 Urinary tract infection, site not specified (principal); E78.00 Pure hypercholesterolemia, unspecified; I12.9 Hypertensive chronic kidney disease with stage 1 through stage 4 chronic kidney disease, or unspecified chronic kidney disease; N18.9 Chronic kidney disease, unspecified

== ENCOUNTER 2018-04-25 13:22 | Inpatient (IN) | payer MEDICARE ==
[2018-04-25 13:22] VITALS: BMI 313171.9
[2018-04-25] MEDS ORDERED: Sodium Chloride 0.9% 1,000 ML IV STA (13:53)
--- NOTE | 2018-04-25 14:05 | C.PDOC ---
History Of Present Illness 57 year old female presents to the emergency department with complaints of chest pain since last night. Patient reports that as her symptoms began she was unable to sleep due to shortness of breath. She reports that her pain is radiating from her mid-chest and is radiating to her right shoulder as well as her right jaw. Patient reports that she was seen in the ED on Thursday, March 20 for a urinary infection and has been taking antibiotics for her symptoms, and states she is still having pain in her pubic area. Time Seen by Provider: 04/25/18 13:45 Chief Complaint (Nursing): Chest Pain History Per: Patient History/Exam Limitations: no limitations Onset/Duration Of Symptoms: Days (1) Current Symptoms Are (Timing): Still Present Quality: "Pain" Past Medical History Reviewed: Historical Data, Nursing Documentation, Vital Signs Vital Signs: Last Vital Signs Temp 98.9 F 04/25/18 13:26 Pulse 75 04/25/18 14:56 Resp 18 04/25/18 14:56 BP 124/86 04/25/18 14:56 Pulse Ox 97 04/25/18 14:56 - Medical History PMH: Anxiety, Arthritis, Asthma, Depression, Diabetes, Gastritis, HTN, Hypercholesterolemia, Kidney Stones, Migraine, Pulmonary Embolism, Chronic Kidney Disease Surgical History: Appendectomy, Endoscopy - [facility] Procedures CYSTOSCOPY NEC (08/09/01) INJECT/INFUSE ELECTROLYT (04/12/12) INJECT/INFUSE NEC (04/12/12) INSERT INDWELLING CATH (06/15/13) OTHER ENDOSCOPY OF SM INTEST (07/16/12) URETERAL CATHETERIZATION (08/09/01) Family History: States: No Known Family Hx - Social History Hx Tobacco Use: No Hx Alcohol Use: No Hx Substance Use: No - Immunization History Hx Tetanus Toxoid Vaccination: No Hx Influenza Vaccination: No Hx Pneumococcal Vaccination: No Review Of Systems Except As Marked, All Systems Reviewed And Found Negative. Cardiovascular: Positive for: Chest Pain Respiratory: Positive for: Shortness of Breath Genitourinary: Positive for: Pelvic Pain Musculoskeletal: Positive for: Shoulder Pain Physical Exam - Physical Exam Back: CVA Tenderness (right-sided) Additional Physical Exam Comments: Constitutional: No acute distress. Head: Normocephalic. Atraumatic. Eyes: PERRL. ENT: Moist mucous membranes. Neck: Supple. Cardiovascular: Regular rate. Radial pulse 2+ bilaterally. Chest: No tenderness. Respiratory: Clear to auscultation bilaterally. GI: Soft. Nontender. Nondistended. Musculoskeletal: No tenderness or swelling of extremities. Skin: No rash. Neurologic: Alert, no focal deficit. ED Course And Treatment - Laboratory Results Result Diagrams: 04/25/18 14:06 04/25/18 14:06 ECG Rhythm: Sinus Rhythm (85bpm) ECG Interpretation: Normal Interpretation Of ECG: Normal sinus rhythm at 85bpm, no acute ST/T wave changes , normal EKG. O2 Sat by Pulse Oximetry: 98 (RA) Pulse Ox Interpretation: Normal Medical Decision Making Medical Decision Making: Plan: CK-MB CMP Creatine Phosphokinase Troponin CBC CXR Aspirin 325mg PO NaCl IV Fluids Urine Culture Urinalysis Patient's urine culture from her last visit tested positive for E. coli. Sensitive to macrobid, was discharged on. EKG Result: Normal sinus rhythm at 85bpm, no acute ST/T wave changes, normal EKG. Dr. Monet accepts patient for observation for rule out ACS. She states she will order CT to evaluate pyelonephritis and f/u urine culture. Patient states she gets hives and pruritis from IV contrast despite multiple IV contrast studies in the past. Will defer CT imaging to hospitalist team. Disposition - Disposition Disposition: HOSPITALIZED Disposition Time: 15:07 Condition: FAIR Forms: [facility] (Comoran) - POA Core Measure Indicators: Chest Pain - Clinical Impression Clinical Impression: Chest discomfort, Flank pain - Scribe Statement The provider has reviewed the documentation as recorded by the Scribe (Giovany Cheng) Provider Attestation: All medical record entries made by the Scribe were at my direction and personally dictated by me. I have reviewed the chart and agree that the record accurately reflects my personal performance of the history, physical exam, medical decision making, and the department course for this patient. I have also personally directed, reviewed, and agree with the discharge instructions and disposition.
[2018-04-25] MEDS ORDERED: Sodium Chloride 0.9% 1,000 ML ONE (14:12)
[2018-04-25 14:21] LABS: SQUAMOUS EPITHIAL 1 /hpf (0-5); URINE BILIRUBIN NEGATIVE (NEGATIVE); URINE BLOOD NEGATIVE (NEGATIVE); URINE CLARITY Clear (Clear); URINE COLOR Amber (YELLOW); URINE GLUCOSE (UA) NORMAL (Normal); URINE LEUKOCYTE ESTERASE NEG Leu/uL (Negative); URINE PROTEIN 2+ mg/dL (NEGATIVE); URINE UROBILINOGEN NORMAL mg/dL (0.2-1.0)
[2018-04-25 14:22] LABS: BASO % 0.5 % (0.0-2.0); EOS % 0.2 % (0.0-4.0); HEMOGLOBIN 11.8 g/dL (11.0-16.0); LYMPH % 19.7 % (20.0-40.0); MEAN CELL VOLUME 83.8 fL (81.0-99.0); MEAN CORPUSCULAR HEMOGLOBIN 28.2 pg (27.0-31.0); MEAN CORPUSCULAR HGB CONC 33.6 g/dL (33.0-37.0); MEAN PLATELET VOLUME 10.1 fL (7.2-11.7); MONO # 1.3 K/uL (0.0-0.8); MONO % 13.1 % (0.0-10.0); NEUT # 6.6 K/uL (1.8-7.0); NEUT % 66.5 % (50.0-75.0); RBC 4.19 Mil/uL (3.80-5.20); RED CELL DISTRIBUTION WIDTH 14.3 % (11.5-14.5); WHITE BLOOD COUNT 9.9 K/uL (4.8-10.8)
[2018-04-25 14:43] LABS: ALBUMIN 4.2 g/dL (3.5-5.0); ALT/SGPT 18 U/L (9-52); AST/SGOT 35 U/L (14-36); BLOOD UREA NITROGEN 14 mg/dL (7-17); CALCIUM 9.8 mg/dl (8.6-10.4); GFR AFRICAN-AMERICAN > 60; GFR NON-AFRICAN AMERICAN > 60
[2018-04-25 14:57] LABS: CK-MB 0.47 ng/mL (0.0-3.38)
--- NOTE | 2018-04-25 16:43 | RAD ---
HISTORY: chest pain COMPARISON: Comparison is made with 10/23/2017 FINDINGS: LUNGS: No evidence of a new infiltrate or consolidation in the lungs. PLEURA: No significant pleural effusion identified, no pneumothorax apparent. CARDIOVASCULAR: Normal. OSSEOUS STRUCTURES: No significant abnormalities. VISUALIZED UPPER ABDOMEN: Normal. OTHER FINDINGS: None. IMPRESSION: No active disease.
[2018-04-25] MEDS ORDERED: Albuterol HFA 90 mcg/actuation (8 g) IH PRN ×2 (16:55→17:09)
[2018-04-25] MEDS ORDERED: Meropenem 1 GM in Sodium Chloride 0.9% 100 ML IVPB ONE (17:00)
--- NOTE | 2018-04-25 17:15 | CP.PCM.HP ---
<ShubhamJocelyne wade DO - Last Filed: 04/25/18 17:02> History of Present Illness - History of Present Illness History of Present Illness: CC: "My chest and side hurt" Patient is a 57 year old female who presents to the ER for complaint of chest pain which started yesterday evening. She states the pain is in the center of her chest and radiates to right shoulder and right neck. She also admits to dyspnea associated with the chest pain. She states the pain is intermittent. She also admits to feeling dizzy, headache, and nausea. She states the chest pain is not pressure-like and is not reproducible on palpation. Patient was seen in the ER on 04/20/18 for complaint of suprapubic pain. Patient was discharged with macrobid, pyridium, and ultram. Urine culture is positive for E. coli, sensitive to meropenem CECE <= 0.25. Patient reports she has right flank pain that wraps around to her groin as well as dysuria and pruritus in her groin. She denies vaginal discharge or hematuria. PMD: Dr. Edwards Allergies: IV contrast dye- reaction is rash and pruritus PMHx: HTN, DM, HLD, asthma, right nephrolithiasis, pulmonary embolus right lung two years ago, gastritis PSHx: x2, appendectomy, surgery for nephrolithiasis Meds: advair diskus 100/50, ventolin as needed, trazodone 100mg PO HS, janumet 50-500 BID, xarelto 20mg daily, protonix 40mg daily, lexapro 20mg daily, colace 100mg BID, atorvastatin 20mg PO HS, xanax 1mg HS prn FamHx: mother with DM, aunt with breast cancer, grandmother with uterine cancer social Hx: never smoked, occasional alcohol use socially, no drugs, does not work Present on Admission - Present on Admission Any Indicators Present on Admission: Yes History of DVT/PE: Yes Review of Systems - Constitutional Constitutional: absent: Chills, Fever, Lethargy - EENT Eyes: absent: Blurred Vision, Change in Vision Ears: Dizziness Nose/Mouth/Throat: absent: Nasal Congestion - Cardiovascular Cardiovascular: Chest Pain, Dyspnea, Pain Radiating to Arm/Neck/Jaw. absent: Diaphoresis, Edema, Leg Edema, Palpitations - Respiratory Respiratory: absent: Cough, Hemoptysis, Chest Congestion - Gastrointestinal Gastrointestinal: Nausea. absent: Belching, Constipation, Diarrhea, Hematemesis , Hematochezia, Vomiting - Genitourinary Genitourinary: Dysuria, Flank Pain, Hx Renal/Bladder Calculi, Hx /Renal Surgery. absent: Hematuria - Musculoskeletal Musculoskeletal: Back Pain - Integumentary Integumentary: absent: Rash - Neurological Neurological: Dizziness. absent: Weakness - Endocrine Endocrine: absent: Fatigue, Palpitations Past Patient History - Infectious Disease Hx of Infectious Diseases: None - Past Medical History & Family History Past Medical History?: Yes - Past Social History Smoking Status: Never Smoked - CARDIAC Hx Hypercholesterolemia: Yes Hx Hypertension: Yes - PULMONARY Hx Asthma: Yes Hx Pulmonary Embolism: Yes - NEUROLOGICAL Hx Migraine: Yes - HEENT Hx HEENT Problems: No Hx Cataracts: Yes (right cataract surgery) - RENAL Hx Chronic Kidney Disease: Yes Hx Kidney Stones: Yes - ENDOCRINE/METABOLIC Hx Endocrine Disorders: Yes Hx Diabetes Mellitus Type 2: Yes - HEMATOLOGICAL/ONCOLOGICAL Hx Blood Disorders: No Hx Blood Transfusions: No Hx Blood Transfusion Reaction: No - INTEGUMENTARY Hx Dermatological Problems: No - MUSCULOSKELETAL/RHEUMATOLOGICAL Hx Arthritis: Yes - GASTROINTESTINAL Hx Gastritis: Yes - GENITOURINARY/GYNECOLOGICAL Hx Genitourinary Disorders: Yes Hx Urinary Tract Infection: Yes - PSYCHIATRIC Hx Anxiety: Yes Hx Depression: Yes Hx Substance Use: No - SURGICAL HISTORY Hx Appendectomy: Yes - ANESTHESIA Hx Anesthesia: Yes Hx Anesthesia Reactions: No Hx Malignant Hyperthermia: No Meds Allergies/Adverse Reactions: Allergies Allergy/AdvReac Type Severity Reaction Status Date / Time Iodinated Contrast- Oral and Allergy URTICARIA Verified 04/25/18 15:39 IV Dye Physical Exam - Constitutional Appears: No Acute Distress - Head Exam Head Exam: ATRAUMATIC, NORMOCEPHALIC - Eye Exam Eye Exam: EOMI Pupil Exam: PERRL - ENT Exam ENT Exam: Mucous Membranes Moist - Neck Exam Neck exam: Negative for: Tenderness - Respiratory Exam Respiratory Exam: Clear to Auscultation Bilateral. absent: Chest Wall Tenderness, Rales, Rhonchi, Wheezes, Respiratory Distress - Cardiovascular Exam Cardiovascular Exam: +S1, +S2. absent: Tachycardia, JVD Additional comments: no carotid bruits - GI/Abdominal Exam GI & Abdominal Exam: Normal Bowel Sounds, Soft. absent: Tenderness - Exam Additional comments: suprapubic tenderness on palpation - Extremities Exam Extremities exam: Positive for: normal inspection. Negative for: calf tenderness, pedal edema - Back Exam Back exam: CVA tenderness (R) (wraps around to groin) - Neurological Exam Neurological exam: Alert, Oriented x3 - Psychiatric Exam Psychiatric exam: Normal Affect - Skin Skin Exam: Warm Results - Vital Signs Recent Vital Signs: Last Vital Signs Temp 98.9 F 04/25/18 13:26 Pulse 75 04/25/18 14:56 Resp 18 04/25/18 14:56 BP 124/86 04/25/18 14:56 Pulse Ox 98 04/25/18 15:59 - Labs Result Diagrams: 04/25/18 14:06 04/25/18 14:06 Labs: Laboratory Results - last 24 hr 04/25/18 04/25/18 04/25/18 14:06 14:06 14:06 WBC 9.9 D RBC 4.19 Hgb 11.8 Hct 35.1 MCV 83.8 D MCH 28.2 MCHC 33.6 RDW 14.3 Plt Count 211 MPV 10.1 Neut % (Auto) 66.5 Lymph % (Auto) 19.7 L [place] % (Auto) 13.1 H Eos % (Auto) 0.2 Baso % (Auto) 0.5 Neut # (Auto) 6.6 Lymph # (Auto) 2.0 [place] # (Auto) 1.3 H Eos # (Auto) 0.0 Baso # (Auto) 0.0 Sodium 140 Potassium 4.7 Chloride 96 L Carbon Dioxide 34 H Anion Gap 15 BUN 14 Creatinine 0.8 Est GFR ( Amer) > 60 Est GFR (Non-Af Amer) > 60 POC Glucose (mg/dL) Random Glucose 118 H Calcium 9.8 Total Bilirubin 0.6 AST 35 ALT 18 Alkaline Phosphatase 75 Total Creatine Kinase 59 CK-MB (Mass) 0.47 Troponin I < 0.0120 Total Protein 8.3 Albumin 4.2 Globulin 4.1 H Albumin/Globulin Ratio 1.0 Urine Color [place] Urine Clarity Clear Urine pH 7.0 Ur Specific [place] 1.015 Urine Protein 2+ H Urine Glucose (UA) Normal Urine Ketones Negative Urine Blood Negative Urine Nitrate Negative Urine Bilirubin Negative Urine Urobilinogen Normal Ur Leukocyte Esterase Neg Urine WBC (Auto) 1 Urine RBC (Auto) 1 Ur Squamous Epith Cells 1 04/25/18 16:33 WBC RBC Hgb Hct MCV MCH MCHC RDW Plt Count MPV Neut % (Auto) Lymph % (Auto) [place] % (Auto) Eos % (Auto) Baso % (Auto) Neut # (Auto) Lymph # (Auto) [place] # (Auto) Eos # (Auto) Baso # (Auto) Sodium Potassium Chloride Carbon Dioxide Anion Gap BUN Creatinine Est GFR ( Amer) Est GFR (Non-Af Amer) POC Glucose (mg/dL) 90 Random Glucose Calcium Total Bilirubin AST ALT Alkaline Phosphatase Total Creatine Kinase CK-MB (Mass) Troponin I Total Protein Albumin Globulin Albumin/Globulin Ratio Urine Color Urine Clarity Urine pH Ur Specific [place] Urine Protein Urine Glucose (UA) Urine Ketones Urine Blood Urine Nitrate Urine Bilirubin Urine Urobilinogen Ur Leukocyte Esterase Urine WBC (Auto) Urine RBC (Auto) Ur Squamous Epith Cells Assessment & Plan (1) Chest pain Assessment and Plan: rule out ACS Monitor on telemetry First troponin negative, will continue to trend x 2 more with EKG EKG with normal sinus rhythm patient received aspirin 325mg in ER, will continue 81mg daily will check Hgb A1c, TSH, Free T4, lipid panel in AM Status: Acute (2) Urinary tract infection Assessment and Plan: Patient seen in ER on 04/20/18 for UTI symptoms patient was discharged with macrobid, pyridium, ultram at that time Patient still complaining of dysuria, also had right flank pain that wraps to groin urine culture from 04/20/18 is positive for E. coli, best CECE of 0.25 is to meropenem will order meropenem x 1 dose now, to be continued by DENA Martinez, DENA, consulted- help appreciated will repeat urine culture and check blood culture Status: Acute (3) Flank pain Assessment and Plan: patient has right flank pain she has history right nephrolithiasis requiring surgery in the past will check non-contrast CT abdomen/ pelvis due to patient's reported allergy to IV contrast dye to rule out hydronephrosis Status: Acute (4) History of pulmonary embolus (PE) Assessment and Plan: Patient reports history of pulmonary embolus in right lung two years ago continue home medication Xarelto 20mg PO daily Status: Chronic (5) Depression Assessment and Plan: Patient takes lexapro 20mg daily and trazodone 100mg PO HS- will continue Status: Chronic (6) HLD (hyperlipidemia) Assessment and Plan: continue equivalent of home med atorvastatin 20mg (crestor 10mg) will check lipid panel in AM Status: Chronic (7) Diabetes mellitus Assessment and Plan: will check A1c holding home med janumet accuchecks achs insulin sliding scale Status: Chronic (8) Asthma Assessment and Plan: continue home medication advair diskus 100/50 BID continue ventolin HFA q6prn dyspnea Status: Chronic (9) Gastritis Assessment and Plan: continue protonix 40mg PO daily maalox prn Status: Chronic (10) Prophylactic measure Assessment and Plan: Patient on Xarelto continue home medication protonix 40mg PO daily Status: Acute <Natalee Roberts V - Last Filed: 04/28/18 13:21> Results - Vital Signs Recent Vital Signs: Last Vital Signs Temp 98.4 F 04/28/18 07:00 Pulse 82 04/28/18 08:05 Resp 20 04/28/18 07:00 BP 103/67 04/28/18 07:00 Pulse Ox 95 04/28/18 07:00 - Labs Result Diagrams: 04/28/18 07:36 04/28/18 07:36 Labs: Laboratory Results - last 24 hr 04/27/18 04/27/18 04/27/18 16:14 18:58 21:22 WBC RBC Hgb Hct MCV MCH MCHC RDW Plt Count MPV Neut % (Auto) Lymph % (Auto) [place] % (Auto) Eos % (Auto) Baso % (Auto) Neut # (Auto) Lymph # (Auto) [place] # (Auto) Eos # (Auto) Baso # (Auto) Sodium Potassium Chloride Carbon Dioxide Anion Gap BUN Creatinine Est GFR ( Amer) Est GFR (Non-Af Amer) POC Glucose (mg/dL) 113 H 102 107 Random Glucose Calcium Phosphorus Magnesium Total Bilirubin AST ALT Alkaline Phosphatase Total Protein Albumin Globulin Albumin/Globulin Ratio 04/28/18 04/28/18 04/28/18 06:40 07:36 07:36 WBC 6.5 RBC 3.67 L Hgb 10.1 L Hct 30.9 L MCV 84.3 MCH 27.5 MCHC 32.6 L RDW 13.9 Plt Count 197 MPV 9.8 Neut % (Auto) 67.9 Lymph % (Auto) 19.0 L [place] % (Auto) 11.9 H Eos % (Auto) 0.8 Baso % (Auto) 0.4 Neut # (Auto) 4.4 Lymph # (Auto) 1.2 [place] # (Auto) 0.8 Eos # (Auto) 0.1 Baso # (Auto) 0.0 Sodium 137 Potassium 4.4 Chloride 98 Carbon Dioxide 33 H Anion Gap 11 BUN 11 Creatinine 0.6 L Est GFR ( Amer) > 60 Est GFR (Non-Af Amer) > 60 POC Glucose (mg/dL) 167 H Random Glucose 184 H Calcium 8.7 Phosphorus 3.1 Magnesium 1.5 L Total Bilirubin 0.5 AST 19 ALT 17 Alkaline Phosphatase 50 Total Protein 6.7 Albumin 3.6 Globulin 3.1 Albumin/Globulin Ratio 1.2 04/28/18 11:05 WBC RBC Hgb Hct MCV MCH MCHC RDW Plt Count MPV Neut % (Auto) Lymph % (Auto) [place] % (Auto) Eos % (Auto) Baso % (Auto) Neut # (Auto) Lymph # (Auto) [place] # (Auto) Eos # (Auto) Baso # (Auto) Sodium Potassium Chloride Carbon Dioxide Anion Gap BUN Creatinine Est GFR ( Amer) Est GFR (Non-Af Amer) POC Glucose (mg/dL) 212 H Random Glucose Calcium Phosphorus Magnesium Total Bilirubin AST ALT Alkaline Phosphatase Total Protein Albumin Globulin Albumin/Globulin Ratio Attending/Attestation - Attestation I have personally seen and examined this patient.: Yes I have fully participated in the care of the patient.: Yes I have reviewed all pertinent clinical information: Yes Notes (Text): this is late computer entry for 04/25/18. Patient seen in [facility] at approximately 5PM. Patient came to the emergency room for chest pain complaints. Noted for persistent UTI/pyelonephritis inspite of Macrobid therapy reviewed prior ER visit from 04/20/18. Discussed admitting orders with the day-time resident. Assessment & Plan (1) Chest pain Assessment and Plan: * Monitor on telemetry * rule out ACS * First troponin negative, will continue to trend x 2 more with EKG * EKG with normal sinus rhythm * patient received aspirin 325mg in ER, will continue 81mg daily * will check Hgb A1c, TSH, Free T4, lipid panel in AM Status: Acute (2)Complicated Urinary tract infection Pyleonephritis Assessment and Plan: * Patient seen in ER on 04/20/18 for UTI symptoms * patient was discharged with macrobid (urine culutre from prior ER visit available in ER slows high CECE, pyridium, ultram at that time * Patient still complaining of dysuria, also had right flank pain that wraps to groin * urine culture from 04/20/18 is positive for E. coli, best CECE of 0.25 is to meropenem-->will order first dose of Meropenem * Dr. Martinez, ID, consulted- help appreciated * will repeat urine culture and check blood culture * Ordered for noncontrast CT abdomen/pelvis r/o stone as etiology for persistent symptoms Status: Acute (3) Flank pain Assessment and Plan: * patient has right flank pain * she has history right nephrolithiasis requiring surgery in the past * will check non-contrast CT abdomen/ pelvis due to patient's reported allergy to IV contrast dye to rule out hydronephrosis (patient noted has "swelling" and "rash: but has number of CT scans noted in the EMR; more recents ones noted for PO contrast noted) Status: Acute (4) History of pulmonary embolus (PE) Assessment and Plan: * Patient reports history of pulmonary embolus in right lung two years ago * continue home medication Xarelto 20mg PO daily Status: Chronic (5) Depression Assessment and Plan: * Patient takes lexapro 20mg daily and trazodone 100mg PO HS- will continue Status: Chronic (6) HLD (hyperlipidemia) Assessment and Plan: * continue equivalent of home med atorvastatin 20mg (crestor 10mg) * will check lipid panel in AM Status: Chronic (7) Diabetes mellitus Assessment and Plan: * will check A1c * holding home med janumet * accuchecks achs * insulin sliding scale Status: Chronic (8) Asthma Assessment and Plan: * continue home medication advair diskus 100/50 BID * continue ventolin HFA q6prn dyspnea Status: Chronic (9) Gastritis Assessment and Plan: * continue protonix 40mg PO daily * maalox prn Status: Chronic (10) Prophylactic measure Assessment and Plan: * Patient on Xarelto for prior hx of PE * continue home medication protonix 40mg PO daily Status: Acute
--- NOTE | 2018-04-25 17:33 | CT ---
PROCEDURE: CT Abdomen and Pelvis without intravenous contrast HISTORY: right flank pain, UTI, history right kidney stone COMPARISON: Comparison is made with 09/03/2017 TECHNIQUE: Axial and reformatted coronal and sagittal CT images of the abdomen and pelvis were obtained without IV or oral contrast administration.. Contrast dose: 0 Radiation dose: Total exam DLP = 785.8 mGy-cm. This CT exam was performed using one or more of the following dose reduction techniques: Automated exposure control, adjustment of the mA and/or kV according to patient size, and/or use of iterative reconstruction technique. FINDINGS: LOWER THORAX: Unremarkable. LIVER: Unremarkable. No gross lesion or ductal dilatation. GALLBLADDER AND BILE DUCTS: No evidence of acute cholecystitis or biliary obstruction P PANCREAS: Unremarkable. No gross lesion or ductal dilatation. SPLEEN: Unremarkable. ADRENALS: Unremarkable. No mass. KIDNEYS AND URETERS: Again noted is mild 2 moderate right hydronephrosis. The right ureter is not dilated. No evidence of obstructing stone in the collecting system of the right kidney. Foci of cortical thinning noted in the right kidney. The left kidney is grossly unremarkable. VASCULATURE: Unremarkable. No aortic aneurysm. BOWEL: Unremarkable. No obstruction. No gross mural thickening. APPENDIX: No evidence of appendicitis. PERITONEUM: Unremarkable. No free fluid. No free air. LYMPH NODES: Unremarkable. No enlarged lymph nodes. BLADDER: Unremarkable. REPRODUCTIVE: Unremarkable. BONES: No acute fracture. OTHER FINDINGS: None. IMPRESSION: No significant interval change compared to the previous exam. Re- demonstration of mild right hydronephrosis. No evidence of obstructing stone. 3 millimeter calculus at the upper pole of the right kidney. No evidence of other acute pathology in the abdomen and pelvis.
[2018-04-25] MEDS ORDERED: Glucagon Recombinant 1 mg Inj IM PRN (17:40)
[2018-04-25] MEDS: Sodium Chloride 0.9% 1,000 ML IV SCH (17:43)
[2018-04-25] MEDS ORDERED: Aluminum Hydroxide/Magnesium Hydroxide Susp (30 mL) ONE (18:02)
[2018-04-25] MEDS ORDERED: Alum-Mag Hydrox-Simethicone Susp (30 mL) PO PRN (18:02)
[2018-04-25] MEDS ORDERED: Dextrose 50% SYRINGE Inj (50 ml) IVP PRN (18:11)
[2018-04-25] MEDS: Fluticasone-Salmeterol 100-50mcg Diskus INH SCH (20:10)
[2018-04-25 20:46] LABS: CK-MB 0.43 ng/mL (0.0-3.38)
[2018-04-25] MEDS: (Novolin R) Insulin Human Regular 100 units/ml vial SC SCH (22:21)
[2018-04-26] MEDS: Meropenem IV 1 gm in NS 50 ML IVPB SCH ×4 (01:35→17:16)
[2018-04-26 02:48] LABS: CK-MB 0.37 ng/mL (0.0-3.38)
[2018-04-26] MEDS: (Novolin R) Insulin Human Regular 100 units/ml vial SC SCH ×4 (07:43→22:11)
[2018-04-26 08:15] LABS: BASO % 0.3 % (0.0-2.0); EOS % 0.4 % (0.0-4.0); HEMOGLOBIN 10.7 g/dL (11.0-16.0); LYMPH # 1.8 K/uL (1.0-4.3); LYMPH % 26.5 % (20.0-40.0); MEAN CELL VOLUME 83.5 fL (81.0-99.0); MEAN CORPUSCULAR HGB CONC 33.6 g/dL (33.0-37.0); MONO % 13.9 % (0.0-10.0); NEUT % 58.9 % (50.0-75.0); NRBC % 0.1 % (0.0-2.0); RBC 3.81 Mil/uL (3.80-5.20); RED CELL DISTRIBUTION WIDTH 14.3 % (11.5-14.5); WHITE BLOOD COUNT 6.8 K/uL (4.8-10.8)
[2018-04-26 08:42] LABS: ALBUMIN 3.5 g/dL (3.5-5.0); ALT/SGPT 16 U/L (9-52); AST/SGOT 19 U/L (14-36); BLOOD UREA NITROGEN 11 mg/dL (7-17); CALCIUM 8.9 mg/dl (8.6-10.4); HDL CHOLESTEROL 33 mg/dL (30-70)
[2018-04-26 08:50] LABS: LDL CHOLESTEROL 113 mg/dL (0-129)
--- NOTE | 2018-04-26 09:10 | CP.PCM.PN ---
<Shannan Cooley - Last Filed: 04/26/18 16:37> Subjective - Date & Time of Evaluation Date of Evaluation: 04/26/18 Time of Evaluation: 07:00 - Subjective Subjective: Medicine Progress Note: Patient was seen and examined at bedside in the AM. Patient states she continues to have back pain, headache and nausea. Patient denies dysuria or hematuria. She states she has not had a bowel movement since Thursday04/23/18. Dulcolax and fleet enema was ordered for the patient in the morning. Patient was later seen in the afternoon and she confirmed to have a bowel movement. Objective - Vital Signs/Intake and Output Vital Signs (last 24 hours): Temp Pulse Resp BP Pulse Ox 97.6 F 89 20 103/70 94 L 04/26/18 07:05 04/26/18 07:05 04/26/18 07:05 04/26/18 07:05 04/26/18 07:05 - Medications Medications: Current Medications Acetaminophen (Tylenol 325mg Tab) 650 mg PO Q6 PRN PRN Reason: Pain, moderate (4-7) Last Admin: 04/26/18 01:35 Dose: 650 mg Al Hydrox/Mg Hydrox/Simethicone (Maalox Plus 30 Ml) 30 ml PO PCHS PRN PRN Reason: Indigestion / Heartburn Last Admin: 04/25/18 18:00 Dose: 30 ml Albuterol (Ventolin Hfa 90 Mcg/Actuation (8 G)) 2 puff IH RQ6 PRN PRN Reason: Shortness of Breath Alprazolam (Xanax) 0.5 mg PO HS PRN PRN Reason: Anxiety Aspirin (Aspirin Chewable) 81 mg PO DAILY [facility] Dextrose (Dextrose 50% Inj) 0 ml IVP .STAT PRN; Protocol PRN Reason: Hypoglycemia Protocol Dextrose (Glutose 15) 0 gm PO .ONCE PRN; Protocol PRN Reason: Hypoglycemia Protocol Docusate Sodium (Colace) 100 mg PO BID [facility] Last Admin: 04/25/18 18:00 Dose: 100 mg Escitalopram Oxalate (Lexapro) 20 mg PO DAILY [facility] Glucagon (Glucagen Diagnostic Kit) 0 mg IM .STAT PRN; Protocol PRN Reason: Hypoglycemia Protocol Sodium Chloride (Sodium Chloride 0.9%) 1,000 mls @ 100 mls/hr IV .Q10H [facility] Last Admin: 04/25/18 17:43 Dose: 100 mls/hr Dextrose (Dextrose 5% In Water 1000 Ml) 1,000 mls @ 0 mls/hr IV .Q0M PRN; Protocol; Per Protocol PRN Reason: Hypoglycemia Protocol Meropenem (Merrem Iv 1 Gm Premix) 50 mls @ 100 mls/hr IVPB Q8H [facility] PRN Reason: Protocol Last Admin: 04/26/18 09:02 Dose: 100 mls/hr Insulin Human Regular (Novolin R) 0 unit SC ACHS [facility] PRN Reason: Protocol Last Admin: 04/26/18 07:43 Dose: Not Given Pantoprazole Sodium (Protonix Ec Tab) 40 mg PO DAILY [facility] Phenazopyridine HCl (Pyridium) 200 mg PO TIDPC [facility] Stop: 04/27/18 13:31 Last Admin: 04/26/18 08:52 Dose: 200 mg Rivaroxaban (Xarelto) 20 mg PO DAILY [facility] Rosuvastatin Calcium (Crestor) 10 mg PO HS [facility] Last Admin: 04/25/18 22:26 Dose: 10 mg Fluticasone/Salmeterol (Advair Diskus 100/50) 1 puff INH RQ12 [facility] Last Admin: 04/25/18 20:10 Dose: 1 puff Trazodone HCl (Desyrel) 100 mg PO HS [facility] Last Admin: 04/25/18 22:26 Dose: 100 mg - Labs Labs: 04/26/18 08:02 04/26/18 08:02 - Constitutional Appears: No Acute Distress - Head Exam Head Exam: ATRAUMATIC, NORMAL INSPECTION - Eye Exam Eye Exam: EOMI, Normal appearance, PERRL Pupil Exam: NORMAL ACCOMODATION - ENT Exam ENT Exam: Mucous Membranes Moist - Respiratory Exam Respiratory Exam: Clear to Ausculation Bilateral, NORMAL BREATHING PATTERN - Cardiovascular Exam Cardiovascular Exam: REGULAR RHYTHM, +S1, +S2 - GI/Abdominal Exam GI & Abdominal Exam: Soft, Normal Bowel Sounds. absent: Tenderness - Extremities Exam Extremities Exam: Normal Inspection - Back Exam Back Exam: CVA tenderness (R). absent: CVA tenderness (L) - Neurological Exam Neurological Exam: Alert, Awake, Oriented x3 - Psychiatric Exam Psychiatric exam: Normal Affect, Normal Mood - Skin Skin Exam: Normal Color Assessment and Plan - Assessment and Plan (Free Text) Assessment: Urinary tract infection - Patient seen in ER on 04/20/18 for UTI symptoms - patient was discharged from the emergency room on 04/20/18 with macrobid, pyridium, ultram at that time - urine culture from 04/20/18 is positive for E. coli, best CECE of 0.[address] Martinez, ID, consulted- help appreciated - Medication: * Meropenem 1gm q8h started on 04/25/18 - Repeat Urine culture (04/25/18): negative - f/u blood culture Flank pain - patient continues to have right flank pain - she has history right nephrolithiasis requiring surgery in the past - Abdominal/Pelvis CT (04/25/18): No significant interval change compared to the previous exam. Re- demonstration of mild right hydronephrosis. No evidence of obstructing stone. 3 millimeter calculus at the upper pole of the right kidney. No evidence of other acute pathology in the abdomen and pelvis. - Uro Consult: Dr. Kelli Echeverria --> help appreciated - Spoke with Dr. Echeverria and he stated possible stent needed --> patient made NPO after midnight/Aspirin and Xeralto held - f/u abdominal xray with oblique view Chest pain - resolved rule out ACS - Monitor on telemetry - Chest xray: No active disease. - Trop x3 negative - EKG with normal sinus rhythm - ECHO (10/2016): Left ventricular ejection fraction is within the normal range (EF 77%). No regional wall motion abnormalities noted. - TSH 1.76; free T4 1.31 - Detsky score of 5 - Class I risk (6% complications) - Medication * patient received aspirin 325mg in ER, * Aspirin 81mg daily - hold History of pulmonary embolus (PE) - History of pulmonary embolus 11/2016 - per chart - continue home medication Xarelto 20mg PO daily - hold for possible procedure History of Depression - Patient takes lexapro 20mg daily and trazodone 100mg PO HS- will continue History of HLD - continue equivalent of home med atorvastatin 20mg (crestor 10mg) - Lipid Panel: Triglycerides 169; Total Cholesterol 178; LDL 113; HDL 33 History of Diabetes mellitus - hA1c 6.8 - holding home med janumet - accuchecks achs - insulin sliding scale History of Asthma - continue home medication advair diskus 100/50 BID - continue ventolin HFA q6prn dyspnea History of Gastritis - continue protonix 40mg PO daily - maalox prn Prophylaxis - Patient on Xarelto - hold - continue home medication protonix 40mg PO daily - SCDs - PT eval and treat Case discussed with Dr. Riri Cooley PGY-1 <Dave Menezes - Last Filed: 04/26/18 19:00> Objective - Vital Signs/Intake and Output Vital Signs (last 24 hours): Temp Pulse Resp BP Pulse Ox 97.9 F 79 20 101/70 94 L 04/26/18 15:00 04/26/18 15:00 04/26/18 15:00 04/26/18 15:00 04/26/18 15:00 - Medications Medications: Current Medications Acetaminophen (Tylenol 325mg Tab) 650 mg PO Q6 PRN PRN Reason: Pain, moderate (4-7) Last Admin: 04/26/18 10:19 Dose: 650 mg Al Hydrox/Mg Hydrox/Simethicone (Maalox Plus 30 Ml) 30 ml PO PCHS PRN PRN Reason: Indigestion / Heartburn Last Admin: 04/25/18 18:00 Dose: 30 ml Albuterol (Ventolin Hfa 90 Mcg/Actuation (8 G)) 2 puff IH RQ6 PRN PRN Reason: Shortness of Breath Alprazolam (Xanax) 0.5 mg PO HS PRN PRN Reason: Anxiety Aspirin (Aspirin Chewable) 81 mg PO DAILY [facility] Last Admin: 04/26/18 09:12 Dose: 81 mg Dextrose (Dextrose 50% Inj) 0 ml IVP .STAT PRN; Protocol PRN Reason: Hypoglycemia Protocol Dextrose (Glutose 15) 0 gm PO .ONCE PRN; Protocol PRN Reason: Hypoglycemia Protocol Dextrose (Dextrose 50% Inj) 0 ml IV STAT PRN; Protocol PRN Reason: Hypoglycemia Protocol Dextrose (Glutose 15) 0 gm PO ONCE PRN; Protocol PRN Reason: Hypoglycemia Protocol Docusate Sodium (Colace) 100 mg PO BID [facility] Last Admin: 04/26/18 17:16 Dose: 100 mg Escitalopram Oxalate (Lexapro) 20 mg PO DAILY [facility] Last Admin: 04/26/18 09:12 Dose: 20 mg Glucagon (Glucagen Diagnostic Kit) 0 mg IM .STAT PRN; Protocol PRN Reason: Hypoglycemia Protocol Glucagon (Glucagen Diagnostic Kit) 0 mg IM STAT PRN; Protocol PRN Reason: Hypoglycemia Protocol Sodium Chloride (Sodium Chloride 0.9%) 1,000 mls @ 100 mls/hr IV .Q10H [facility] Last Admin: 04/25/18 17:43 Dose: 100 mls/hr Dextrose (Dextrose 5% In Water 1000 Ml) 1,000 mls @ 0 mls/hr IV .Q0M PRN; Protocol; Per Protocol PRN Reason: Hypoglycemia Protocol Meropenem (Merrem Iv 1 Gm Premix) 50 mls @ 100 mls/hr IVPB Q8H [facility] PRN Reason: Protocol Last Admin: 04/26/18 17:16 Dose: 100 mls/hr Dextrose (Dextrose 5% In Water 1000 Ml) 1,000 mls @ 0 mls/hr IV .Q0M PRN; Protocol; Per Protocol PRN Reason: Hypoglycemia Protocol Insulin Human Regular (Novolin R) [address] [facility] PRN Reason: Protocol Last Admin: 04/26/18 17:00 Dose: Not Given Pantoprazole Sodium (Protonix Ec Tab) 40 mg PO DAILY [facility] Last Admin: 04/26/18 09:12 Dose: 40 mg Phenazopyridine HCl (Pyridium) 200 mg PO TIDPC [facility] Stop: 04/27/18 13:31 Last Admin: 04/26/18 17:16 Dose: 200 mg Rivaroxaban (Xarelto) 20 mg PO DAILY [facility] Last Admin: 04/26/18 09:13 Dose: 20 mg Rosuvastatin Calcium (Crestor) 10 mg PO [facility] Last Admin: 04/25/18 22:26 Dose: 10 mg Fluticasone/Salmeterol (Advair Diskus 100/50) 1 puff INH RQ12 [facility] Last Admin: 04/26/18 10:05 Dose: 1 puff Trazodone HCl (Desyrel) 100 mg PO [facility] Last Admin: 04/25/18 22:26 Dose: 100 mg - Labs Labs: 04/26/18 08:02 04/26/18 08:02 Attending/Attestation - Attestation I have personally seen and examined this patient.: Yes I have fully participated in the care of the patient.: Yes I have reviewed all pertinent clinical information, including history, physical exam and plan: Yes Notes (Text): 04/26/18 18:58 Medical attending: Patient was seen and examined by me. Agree with the above note by the resident The patient previously had E coli UTI, we are rechecking the cultures. Also because of the imaging findings, ID has suggested getting urology consult as well. The patient currently remains on IV abx at this time. The patient also has a history of PE and is on Xarelto as well - which because of a potential urological intervention we are holding this for the time being. thank you Dave Menezes
[2018-04-26] MEDS: Pantoprazole 40 mg EC Tab PO SCH (09:12)
[2018-04-26 09:16] LABS: ALB/GLOB RATIO 0.9 (1.0-2.1); GFR AFRICAN-AMERICAN > 60; GFR NON-AFRICAN AMERICAN > 60
[2018-04-26] MEDS ORDERED: Bisacodyl 5mg EC Tab PO ONE (09:56)
[2018-04-26] MEDS: Fluticasone-Salmeterol 100-50mcg Diskus INH SCH ×2 (10:05→20:11)
--- NOTE | 2018-04-26 15:08 | CP.PCM.CON ---
History of Present Illness - History of Present Illness History of Present Illness: dictated Past Patient History - Infectious Disease Hx of Infectious Diseases: None - Past Medical History & Family History Past Medical History?: Yes - Past Social History Smoking Status: Never Smoked - CARDIAC Hx Hypercholesterolemia: Yes Hx Hypertension: Yes - PULMONARY Hx Asthma: Yes Hx Pulmonary Embolism: Yes - NEUROLOGICAL Hx Migraine: Yes - HEENT Hx HEENT Problems: No Hx Cataracts: Yes (right cataract surgery) - RENAL Hx Chronic Kidney Disease: Yes Hx Kidney Stones: Yes - ENDOCRINE/METABOLIC Hx Endocrine Disorders: Yes Hx Diabetes Mellitus Type 2: Yes - HEMATOLOGICAL/ONCOLOGICAL Hx Blood Disorders: No Hx Blood Transfusions: No Hx Blood Transfusion Reaction: No - INTEGUMENTARY Hx Dermatological Problems: No - MUSCULOSKELETAL/RHEUMATOLOGICAL Hx Arthritis: Yes - GASTROINTESTINAL Hx Gastritis: Yes - GENITOURINARY/GYNECOLOGICAL Hx Genitourinary Disorders: Yes Hx Urinary Tract Infection: Yes - PSYCHIATRIC Hx Anxiety: Yes Hx Depression: Yes Hx Substance Use: No - SURGICAL HISTORY Hx Appendectomy: Yes - ANESTHESIA Hx Anesthesia: Yes Hx Anesthesia Reactions: No Hx Malignant Hyperthermia: No Meds Allergies/Adverse Reactions: Allergies Allergy/AdvReac Type Severity Reaction Status Date / Time Iodinated Contrast- Oral and Allergy URTICARIA Verified 04/25/18 15:39 IV Dye - Medications Medications: Current Medications Acetaminophen (Tylenol 325mg Tab) 650 mg PO Q6 PRN PRN Reason: Pain, moderate (4-7) Last Admin: 04/26/18 10:19 Dose: 650 mg Al Hydrox/Mg Hydrox/Simethicone (Maalox Plus 30 Ml) 30 ml PO PCHS PRN PRN Reason: Indigestion / Heartburn Last Admin: 04/25/18 18:00 Dose: 30 ml Albuterol (Ventolin Hfa 90 Mcg/Actuation (8 G)) 2 puff IH RQ6 PRN PRN Reason: Shortness of Breath Alprazolam (Xanax) 0.5 mg PO HS PRN PRN Reason: Anxiety Aspirin (Aspirin Chewable) 81 mg PO DAILY [facility] Last Admin: 04/26/18 09:12 Dose: 81 mg Dextrose (Dextrose 50% Inj) 0 ml IVP .STAT PRN; Protocol PRN Reason: Hypoglycemia Protocol Dextrose (Glutose 15) 0 gm PO .ONCE PRN; Protocol PRN Reason: Hypoglycemia Protocol Docusate Sodium (Colace) 100 mg PO BID [facility] Last Admin: 04/26/18 09:12 Dose: 100 mg Escitalopram Oxalate (Lexapro) 20 mg PO DAILY [facility] Last Admin: 04/26/18 09:12 Dose: 20 mg Glucagon (Glucagen Diagnostic Kit) 0 mg IM .STAT PRN; Protocol PRN Reason: Hypoglycemia Protocol Sodium Chloride (Sodium Chloride 0.9%) 1,000 mls @ 100 mls/hr IV .Q10H [facility] Last Admin: 04/25/18 17:43 Dose: 100 mls/hr Dextrose (Dextrose 5% In Water 1000 Ml) 1,000 mls @ 0 mls/hr IV .Q0M PRN; Protocol; Per Protocol PRN Reason: Hypoglycemia Protocol Meropenem (Merrem Iv 1 Gm Premix) 50 mls @ 100 mls/hr IVPB Q8H [facility] PRN Reason: Protocol Last Admin: 04/26/18 09:02 Dose: 100 mls/hr Insulin Human Regular (Novolin R) 0 unit SC ACHS [facility] PRN Reason: Protocol Last Admin: 04/26/18 13:07 Dose: 1 u Pantoprazole Sodium (Protonix Ec Tab) 40 mg PO DAILY [facility] Last Admin: 04/26/18 09:12 Dose: 40 mg Phenazopyridine HCl (Pyridium) 200 mg PO TIDPC [facility] Stop: 04/27/18 13:31 Last Admin: 04/26/18 13:49 Dose: 200 mg Rivaroxaban (Xarelto) 20 mg PO DAILY [facility] Last Admin: 04/26/18 09:13 Dose: 20 mg Rosuvastatin Calcium (Crestor) 10 mg PO HS [facility] Last Admin: 04/25/18 22:26 Dose: 10 mg Fluticasone/Salmeterol (Advair Diskus 100/50) 1 puff INH RQ12 [facility] Last Admin: 04/26/18 10:05 Dose: 1 puff Trazodone HCl (Desyrel) 100 mg PO HS [facility] Last Admin: 04/25/18 22:26 Dose: 100 mg Results - Vital Signs Recent Vital Signs: Last Vital Signs Temp 97.6 F 04/26/18 10:19 Pulse 89 04/26/18 07:05 Resp 20 04/26/18 07:05 BP 103/70 04/26/18 07:05 Pulse Ox 94 L 04/26/18 07:05 - Labs Result Diagrams: 04/26/18 08:02 04/26/18 08:02 Labs: Laboratory Results - last 24 hr 04/25/18 04/25/18 04/25/18 16:33 20:19 22:14 WBC RBC Hgb Hct MCV MCH MCHC RDW Plt Count MPV Neut % (Auto) Lymph % (Auto) Dewey % (Auto) Eos % (Auto) Baso % (Auto) Neut # (Auto) Lymph # (Auto) Dewey # (Auto) Eos # (Auto) Baso # (Auto) Sodium Potassium Chloride Carbon Dioxide Anion Gap BUN Creatinine Est GFR ( Amer) Est GFR (Non-Af Amer) POC Glucose (mg/dL) 90 148 H Random Glucose Hemoglobin A1c Calcium Total Bilirubin AST ALT Alkaline Phosphatase Total Creatine Kinase 56 CK-MB (Mass) 0.43 Troponin I < 0.0120 Total Protein Albumin Globulin Albumin/Globulin Ratio Triglycerides Cholesterol LDL Cholesterol Direct HDL Cholesterol Free T4 TSH 3rd Generation 04/26/18 04/26/18 04/26/18 02:21 07:07 08:02 WBC 6.8 RBC 3.81 Hgb 10.7 L Hct 31.8 L MCV 83.5 MCH 28.0 MCHC 33.6 RDW 14.3 Plt Count 193 MPV 10.0 Neut % (Auto) 58.9 Lymph % (Auto) 26.5 Dewey % (Auto) 13.9 H Eos % (Auto) 0.4 Baso % (Auto) 0.3 Neut # (Auto) 4.0 Lymph # (Auto) 1.8 Dewey # (Auto) 1.0 H Eos # (Auto) 0.0 Baso # (Auto) 0.0 Sodium Potassium Chloride Carbon Dioxide Anion Gap BUN Creatinine Est GFR ( Amer) Est GFR (Non-Af Amer) POC Glucose (mg/dL) 114 H Random Glucose Hemoglobin A1c Calcium Total Bilirubin AST ALT Alkaline Phosphatase Total Creatine Kinase 34 CK-MB (Mass) 0.37 Troponin I < 0.0120 Total Protein Albumin Globulin Albumin/Globulin Ratio Triglycerides Cholesterol LDL Cholesterol Direct HDL Cholesterol Free T4 TSH 3rd Generation 04/26/18 04/26/18 04/26/18 08:02 08:02 08:02 WBC RBC Hgb Hct MCV MCH MCHC RDW Plt Count MPV Neut % (Auto) Lymph % (Auto) Dewey % (Auto) Eos % (Auto) Baso % (Auto) Neut # (Auto) Lymph # (Auto) Dewey # (Auto) Eos # (Auto) Baso # (Auto) Sodium 139 Potassium 4.1 Chloride 101 Carbon Dioxide 30 Anion Gap 13 BUN 11 Creatinine 0.7 Est GFR ( Amer) > 60 Est GFR (Non-Af Amer) > 60 POC Glucose (mg/dL) Random Glucose 122 H Hemoglobin A1c 6.8 H Calcium 8.9 Total Bilirubin 0.5 AST 19 ALT 16 Alkaline Phosphatase 69 Total Creatine Kinase CK-MB (Mass) Troponin I Total Protein 7.1 Albumin 3.5 Globulin 3.7 Albumin/Globulin Ratio 0.9 L Triglycerides 169 H D Cholesterol 178 LDL Cholesterol Direct 113 HDL Cholesterol 33 Free T4 1.31 TSH 3rd Generation 1.76 04/26/18 11:10 WBC RBC Hgb Hct MCV MCH MCHC RDW Plt Count MPV Neut % (Auto) Lymph % (Auto) Dewey % (Auto) Eos % (Auto) Baso % (Auto) Neut # (Auto) Lymph # (Auto) Dewey # (Auto) Eos # (Auto) Baso # (Auto) Sodium Potassium Chloride Carbon Dioxide Anion Gap BUN Creatinine Est GFR ( Amer) Est GFR (Non-Af Amer) POC Glucose (mg/dL) 169 H Random Glucose Hemoglobin A1c Calcium Total Bilirubin AST ALT Alkaline Phosphatase Total Creatine Kinase CK-MB (Mass) Troponin I Total Protein Albumin Globulin Albumin/Globulin Ratio Triglycerides Cholesterol LDL Cholesterol Direct HDL Cholesterol Free T4 TSH 3rd Generation
[2018-04-26] MEDS ORDERED: Glucagon Recombinant 1 mg Inj IM PRN (16:45)
[2018-04-26] MEDS ORDERED: Dextrose 50% SYRINGE Inj (50 ml) IV PRN (16:45)
[2018-04-26] MEDS: Sodium Chloride 0.9% 1,000 ML IV SCH (22:58)
[2018-04-27] MEDS: Meropenem IV 1 gm in NS 50 ML IVPB SCH ×3 (01:39→17:49)
--- NOTE | 2018-04-27 03:11 | CON ---
DATE: 04/26/2018 HISTORY OF PRESENT ILLNESS: Cris Mendiola is a 57-year-old female who presented to the emergency room. She was complaining of chest pain and shoulder pain, and she has abdominal pain. Also, she was seen in the emergency room on 04/20/2018, a urine was sent, and the urine culture came out positive for . Hence, she was admitted. She still complains of right flank pain, dysuria, and suprapubic pain at this time. ALLERGIES: SHE IS ALLERGIC TO IV CONTRAST, HAS A REACTION, RASH AND PRURITUS. PAST MEDICAL HISTORY: Significant for kidney stones. She says one time she had surgery for kidney stones. She had two C-sections and appendicectomy. Past medical history is significant for hypertension, diabetes, hyperlipidemia, asthma, right nephrolithiasis, pulmonary embolus right lung 2 years ago, gastritis. SURGICAL HISTORY: Significant for x2, appendicectomy, surgery for nephrolithiasis. MEDICATIONS: She is on Janumet, Xarelto, Advair, Protonix, Lexapro, Colace, atorvastatin. FAMILY HISTORY: Significant for diabetes. Mother as well diabetic, aunt has breast cancer, and grandmother had uterine cancer. SOCIAL HISTORY: Negative for smoking. Drinks alcohol occasionally. No drugs. Does not work. REVIEW OF SYSTEMS: She did complain some headaches. Denied any vomiting. Did have nausea. Denies any ears, nose, throat symptoms right now. Denied any chest pain when I saw her. Denies any ears, nose, throat problems. No sore throat. No cough or cold. No chest congestion. Did have nausea. Denied any diarrhea, vomiting, blood per rectum, or hematemesis. Does complain of kyle, dysuria, flank pain, and history of kidney stones as present. Denied any blood in the stool. Does complain of back pain. Denies any rash. No skin problems. Denies any dizziness. Denies any fatigue or palpitations. She is diabetic. PHYSICAL EXAMINATION: VITAL SIGNS: I find, temperature is 97.9, pulse is 79, blood pressure 101/70, respirations are 94. HEENT: Head is atraumatic, normocephalic. Pupils are reacting to light. Eye movements are unremarkable. NECK: Supple. JVP is flat. Tongue is moist. Trachea central. LUNGS: Clear to auscultation. No crackles or rales present. HEART: S1, S2 is regular. No murmurs appreciated. No gallops. ABDOMEN: Soft. She complains of vague pains, but there is no guarding, no rigidity present. Mild CVA tenderness present and mild suprapubic tenderness. EXTREMITIES: Have no edema, clubbing or cyanosis. LABORATORY DATA: Labs are noted. Labs show white count is 6.8, hemoglobin is 10.7, hematocrit is 31.8, platelet count is 193. Sodium is 139, potassium 4.1, chloride is 101, CO2 is 30, anion gap is 13, BUN is 11, creatinine 0.7. Triglycerides of 169. Urine culture yesterday came out negative but on 04/20/2018, ESBL in the urine, so she is probably clearing it fast. Again noted on her kidneys are [id number] right hydronephrosis. The right ureter is not dilated. No evidence of obstructing stone in the collecting system of the right kidney. Foci of cortical thinning noted in the right kidney. The left kidney is grossly unremarkable, no evidence. There is right hydronephrosis with ESBL positive in this diabetic patient, I would like to continue meropenem at this time and would get a urology evaluation. I did call the resident and told her to get one to see why she is having right hydronephrosis. I know she does have kidney stones, but there is no stone in the ureter or obstructing. May need to be further evaluated. We will follow. Josh Martinez MD
--- NOTE | 2018-04-27 07:47 | CP.PCM.PN ---
<CooleyTeenaShannan S. - Last Filed: 04/27/18 16:08> Subjective - Date & Time of Evaluation Date of Evaluation: 04/27/18 Time of Evaluation: 07:00 - Subjective Subjective: Medicine Progress Note: Patient was seen and examined at bedside in the AM. Patient states she continues to have right lower back pain, headache and nausea. Patient denies dysuria or hematuria. She states she did have a bowel movement yesterday. Objective - Vital Signs/Intake and Output Vital Signs (last 24 hours): Temp Pulse Resp BP Pulse Ox 97.9 F 88 20 90/56 L 96 04/26/18 23:20 04/26/18 23:20 04/26/18 23:20 04/26/18 23:20 04/27/18 02:00 - Medications Medications: Current Medications Acetaminophen (Tylenol 325mg Tab) 650 mg PO Q6 PRN PRN Reason: Pain, moderate (4-7) Last Admin: 04/26/18 20:47 Dose: 650 mg Al Hydrox/Mg Hydrox/Simethicone (Maalox Plus 30 Ml) 30 ml PO PCHS PRN PRN Reason: Indigestion / Heartburn Last Admin: 04/25/18 18:00 Dose: 30 ml Albuterol (Ventolin Hfa 90 Mcg/Actuation (8 G)) 2 puff IH RQ6 PRN PRN Reason: Shortness of Breath Alprazolam (Xanax) 0.5 mg PO HS PRN PRN Reason: Anxiety Aspirin (Aspirin Chewable) 81 mg PO DAILY [facility] Last Admin: 04/26/18 09:12 Dose: 81 mg Dextrose (Dextrose 50% Inj) 0 ml IVP .STAT PRN; Protocol PRN Reason: Hypoglycemia Protocol Dextrose (Glutose 15) 0 gm PO .ONCE PRN; Protocol PRN Reason: Hypoglycemia Protocol Dextrose (Dextrose 50% Inj) 0 ml IV STAT PRN; Protocol PRN Reason: Hypoglycemia Protocol Dextrose (Glutose 15) 0 gm PO ONCE PRN; Protocol PRN Reason: Hypoglycemia Protocol Docusate Sodium (Colace) 100 mg PO BID [facility] Last Admin: 04/26/18 17:16 Dose: 100 mg Escitalopram Oxalate (Lexapro) 20 mg PO DAILY [facility] Last Admin: 04/26/18 09:12 Dose: 20 mg Glucagon (Glucagen Diagnostic Kit) 0 mg IM .STAT PRN; Protocol PRN Reason: Hypoglycemia Protocol Glucagon (Glucagen Diagnostic Kit) 0 mg IM STAT PRN; Protocol PRN Reason: Hypoglycemia Protocol Sodium Chloride (Sodium Chloride 0.9%) 1,000 mls @ 100 mls/hr IV .Q10H [facility] Last Admin: 04/26/18 22:58 Dose: 100 mls/hr Dextrose (Dextrose 5% In Water 1000 Ml) 1,000 mls @ 0 mls/hr IV .Q0M PRN; Protocol; Per Protocol PRN Reason: Hypoglycemia Protocol Meropenem (Merrem Iv 1 Gm Premix) 50 mls @ 100 mls/hr IVPB Q8H [facility] PRN Reason: Protocol Last Admin: 04/27/18 01:39 Dose: 100 mls/hr Dextrose (Dextrose 5% In Water 1000 Ml) 1,000 mls @ 0 mls/hr IV .Q0M PRN; Protocol; Per Protocol PRN Reason: Hypoglycemia Protocol Insulin Human Regular (Novolin R) 0 unit SC ACHS [facility] PRN Reason: Protocol Last Admin: 04/26/18 22:11 Dose: Not Given Pantoprazole Sodium (Protonix Ec Tab) 40 mg PO DAILY [facility] Last Admin: 04/26/18 09:12 Dose: 40 mg Phenazopyridine HCl (Pyridium) 200 mg PO TIDPC [facility] Stop: 04/27/18 13:31 Last Admin: 04/26/18 17:16 Dose: 200 mg Rivaroxaban (Xarelto) 20 mg PO DAILY [facility] Last Admin: 04/26/18 09:13 Dose: 20 mg Rosuvastatin Calcium (Crestor) 10 mg PO [facility] Last Admin: 04/26/18 21:29 Dose: 10 mg Fluticasone/Salmeterol (Advair Diskus 100/50) 1 puff INH RQ12 [facility] Last Admin: 04/26/18 20:11 Dose: 1 puff Trazodone HCl (Desyrel) 100 mg PO [facility] Last Admin: 04/26/18 21:29 Dose: 100 mg - Labs Labs: 04/26/18 08:02 04/26/18 08:02 - Constitutional Appears: No Acute Distress - Head Exam Head Exam: ATRAUMATIC, NORMAL INSPECTION - Eye Exam Eye Exam: EOMI, Normal appearance - ENT Exam ENT Exam: Mucous Membranes Moist - Respiratory Exam Respiratory Exam: Clear to Ausculation Bilateral, NORMAL BREATHING PATTERN - Cardiovascular Exam Cardiovascular Exam: REGULAR RHYTHM, +S1, +S2 - GI/Abdominal Exam GI & Abdominal Exam: Soft, Tenderness (diffuse abdominal tenderness ), Normal Bowel Sounds - Extremities Exam Extremities Exam: Normal Inspection. absent: Pedal Edema - Back Exam Back Exam: CVA tenderness (R). absent: CVA tenderness (L) - Neurological Exam Neurological Exam: Alert, Awake, Oriented x3 - Psychiatric Exam Psychiatric exam: Anxious - Skin Skin Exam: Normal Color Assessment and Plan - Assessment and Plan (Free Text) Assessment: Urinary tract infection - Patient seen in ER on 04/20/18 for UTI symptoms - patient was discharged from the emergency room on 04/20/18 with macrobid, pyridium, ultram at that time - urine culture from 04/20/18 is positive for E. coli, best CECE of 0.[address] Martinez, ID, consulted- help appreciated - Medication: * Meropenem 1gm q8h started on 04/25/18 - Repeat Urine culture (04/25/18): negative - Urine Culture (04/25/18): negative - Blood culture (04/25/18): negative - preliminary Flank pain - patient continues to have right flank pain - she has history right nephrolithiasis requiring surgery in the past - Abdominal/Pelvis CT (04/25/18): No significant interval change compared to the previous exam. Re- demonstration of mild right hydronephrosis. No evidence of obstructing stone. 3 millimeter calculus at the upper pole of the right kidney. No evidence of other acute pathology in the abdomen and pelvis. - Uro Consult: Dr. Kelli Echeverria --> help appreciated - Spoke with Dr. Echeverria and he stated possible stent needed --> patient made NPO after midnight/Aspirin and Xeralto held - Abdominal xray with oblique view: Tiny and nonobstructing calculus upper pole right kidney. Chest pain - resolved rule out ACS - Monitor on telemetry - Chest xray: No active disease. - Trop x3 negative - EKG with normal sinus rhythm - ECHO (10/2016): Left ventricular ejection fraction is within the normal range (EF 77%). No regional wall motion abnormalities noted. - TSH 1.76; free T4 1.31 - Detsky score of 5 - Class I risk (6% complications) - Medication * patient received aspirin 325mg in ER, * Aspirin 81mg daily - hold History of pulmonary embolus (PE) - History of pulmonary embolus 11/2016 - per chart - continue home medication Xarelto 20mg PO daily - hold for possible procedure History of Depression - Patient takes lexapro 20mg daily and trazodone 100mg PO HS- will continue History of HLD - continue equivalent of home med atorvastatin 20mg (crestor 10mg) - Lipid Panel: Triglycerides 169; Total Cholesterol 178; LDL 113; HDL 33 History of Diabetes mellitus - hA1c 6.8 - holding home med janumet - accuchecks achs - insulin sliding scale History of Asthma - continue home medication advair diskus 100/50 BID - continue ventolin HFA q6prn dyspnea History of Gastritis - continue protonix 40mg PO daily - maalox prn Prophylaxis - Patient on Xarelto - hold - continue home medication protonix 40mg PO daily - SCDs - PT eval and treat Case discussed with Dr. Riri Cooley PGY-1 <Dave Menezes - Last Filed: 04/27/18 16:32> Objective - Vital Signs/Intake and Output Vital Signs (last 24 hours): Temp Pulse Resp BP Pulse Ox 98.1 F 87 20 120/70 95 04/27/18 15:50 04/27/18 15:50 04/27/18 15:50 04/27/18 15:50 04/27/18 15:50 - Medications Medications: Current Medications Acetaminophen (Tylenol 325mg Tab) 650 mg PO Q6 PRN PRN Reason: Pain, moderate (4-7) Last Admin: 04/27/18 08:05 Dose: 650 mg Al Hydrox/Mg Hydrox/Simethicone (Maalox Plus 30 Ml) 30 ml PO PCHS PRN PRN Reason: Indigestion / Heartburn Last Admin: 04/25/18 18:00 Dose: 30 ml Albuterol (Ventolin Hfa 90 Mcg/Actuation (8 G)) 2 puff IH RQ6 PRN PRN Reason: Shortness of Breath Alprazolam (Xanax) 0.5 mg PO HS PRN PRN Reason: Anxiety Aspirin (Aspirin Chewable) 81 mg PO DAILY [facility] Last Admin: 04/26/18 09:12 Dose: 81 mg Dextrose (Dextrose 50% Inj) 0 ml IVP .STAT PRN; Protocol PRN Reason: Hypoglycemia Protocol Dextrose (Glutose 15) 0 gm PO .ONCE PRN; Protocol PRN Reason: Hypoglycemia Protocol Dextrose (Dextrose 50% Inj) 0 ml IV STAT PRN; Protocol PRN Reason: Hypoglycemia Protocol Dextrose (Glutose 15) 0 gm PO ONCE PRN; Protocol PRN Reason: Hypoglycemia Protocol Docusate Sodium (Colace) 100 mg PO BID [facility] Last Admin: 04/27/18 10:25 Dose: 100 mg Escitalopram Oxalate (Lexapro) 20 mg PO DAILY [facility] Last Admin: 04/27/18 10:26 Dose: 20 mg Glucagon (Glucagen Diagnostic Kit) 0 mg IM .STAT PRN; Protocol PRN Reason: Hypoglycemia Protocol Glucagon (Glucagen Diagnostic Kit) 0 mg IM STAT PRN; Protocol PRN Reason: Hypoglycemia Protocol Sodium Chloride (Sodium Chloride 0.9%) 1,000 mls @ 100 mls/hr IV .Q10H [facility] Last Admin: 04/27/18 14:40 Dose: 100 mls/hr Dextrose (Dextrose 5% In Water 1000 Ml) 1,000 mls @ 0 mls/hr IV .Q0M PRN; Protocol; Per Protocol PRN Reason: Hypoglycemia Protocol Meropenem (Merrem Iv 1 Gm Premix) 50 mls @ 100 mls/hr IVPB Q8H [facility] PRN Reason: Protocol Last Admin: 04/27/18 10:29 Dose: 100 mls/hr Dextrose (Dextrose 5% In Water 1000 Ml) 1,000 mls @ 0 mls/hr IV .Q0M PRN; Protocol; Per Protocol PRN Reason: Hypoglycemia Protocol Insulin Human Regular (Novolin R) 0 unit SC ACHS [facility] PRN Reason: Protocol Last Admin: 04/27/18 11:57 Dose: Not Given Ondansetron HCl (Zofran Inj) 4 mg IVP Q6 PRN PRN Reason: Nausea/Vomiting Last Admin: 04/27/18 08:06 Dose: 4 mg Pantoprazole Sodium (Protonix Ec Tab) 40 mg PO DAILY [facility] Last Admin: 04/27/18 10:25 Dose: 40 mg Rivaroxaban (Xarelto) 20 mg PO DAILY [facility] Last Admin: 04/26/18 09:13 Dose: 20 mg Rosuvastatin Calcium (Crestor) 10 mg PO HS [facility] Last Admin: 04/26/18 21:29 Dose: 10 mg Fluticasone/Salmeterol (Advair Diskus 100/50) 1 puff INH RQ12 [facility] Last Admin: 04/27/18 08:12 Dose: 1 puff Trazodone HCl (Desyrel) 100 mg PO HS [facility] Last Admin: 04/26/18 21:29 Dose: 100 mg - Labs Labs: 04/27/18 08:32 04/27/18 08:32 PT 12.5 SECONDS (9.7-12.2) H 04/27/18 08:32 INR 1.1 04/27/18 08:32 APTT 35 SECONDS (21-34) H 04/27/18 08:32 Attending/Attestation - Attestation I have personally seen and examined this patient.: Yes I have fully participated in the care of the patient.: Yes I have reviewed all pertinent clinical information, including history, physical exam and plan: Yes Notes (Text): Medical attending: Patient was seen and examined by me. Agree with the above note by the resident. The repeat urine and blood cultures have been negative at this time. She has also had an echo as well, which is negative. It is possible she may undergo cytoscopy and stenting as she does have a small stone. In the mean time she remains on IV abx as well as IVF. Her Xarelto is on hold for the moment. Dave Menezes
[2018-04-27] MEDS: Fluticasone-Salmeterol 100-50mcg Diskus INH SCH ×2 (08:12→19:33)
[2018-04-27] MEDS: (Novolin R) Insulin Human Regular 100 units/ml vial SC SCH ×4 (08:12→21:26)
[2018-04-27 08:43] LABS: BASO % 0.4 % (0.0-2.0); EOS % 0.4 % (0.0-4.0); HEMOGLOBIN 10.3 g/dL (11.0-16.0); LYMPH # 1.3 K/uL (1.0-4.3); LYMPH % 20.7 % (20.0-40.0); MEAN CELL VOLUME 83.9 fL (81.0-99.0); MEAN CORPUSCULAR HEMOGLOBIN 27.9 pg (27.0-31.0); MEAN CORPUSCULAR HGB CONC 33.3 g/dL (33.0-37.0); MEAN PLATELET VOLUME 9.8 fL (7.2-11.7); MONO # 0.8 K/uL (0.0-0.8); MONO % 12.6 % (0.0-10.0); NEUT # 4.1 K/uL (1.8-7.0); NEUT % 65.9 % (50.0-75.0); RBC 3.68 Mil/uL (3.80-5.20); WHITE BLOOD COUNT 6.3 K/uL (4.8-10.8)
[2018-04-27 08:51] LABS: INR 1.1; PROTHROMBIN TIME 12.5 SECONDS (9.7-12.2)
[2018-04-27 09:06] LABS: ALBUMIN 3.4 g/dL (3.5-5.0); ALT/SGPT 14 U/L (9-52); AST/SGOT 22 U/L (14-36); BLOOD UREA NITROGEN 13 mg/dL (7-17); CALCIUM 9.1 mg/dl (8.6-10.4); GFR AFRICAN-AMERICAN > 60; GFR NON-AFRICAN AMERICAN > 60
[2018-04-27] MEDS: Sodium Chloride 0.9% 1,000 ML IV SCH ×2 (09:30→14:40)
--- NOTE | 2018-04-27 10:19 | RAD ---
HISTORY: mild right hydronephrosis COMPARISON: Comparison made with prior CT scan abdomen pelvis dated 04/25/2018. TheNo prior. FINDINGS: BOWEL: Normal. No obstruction. No free air. . BONES: Normal. OTHER FINDINGS: Tiny calcific density seen right upper quadrant of the abdomen overlying the superior aspect right renal silhouette likely representing previously noted tiny and nonobstructing calculus upper right kidney. IMPRESSION: Tiny and nonobstructing calculus upper pole right kidney.
[2018-04-27] MEDS: Pantoprazole 40 mg EC Tab PO SCH (10:25)
--- NOTE | 2018-04-27 10:36 | CP.PCM.CON ---
Past Patient History - Infectious Disease Hx of Infectious Diseases: None - Past Medical History & Family History Past Medical History?: Yes - Past Social History Smoking Status: Never Smoked - CARDIAC Hx Hypercholesterolemia: Yes Hx Hypertension: Yes - PULMONARY Hx Asthma: Yes Hx Pulmonary Embolism: Yes - NEUROLOGICAL Hx Migraine: Yes - HEENT Hx HEENT Problems: No Hx Cataracts: Yes (right cataract surgery) - RENAL Hx Chronic Kidney Disease: Yes Hx Kidney Stones: Yes - ENDOCRINE/METABOLIC Hx Endocrine Disorders: Yes Hx Diabetes Mellitus Type 2: Yes - HEMATOLOGICAL/ONCOLOGICAL Hx Blood Disorders: No Hx Blood Transfusions: No Hx Blood Transfusion Reaction: No - INTEGUMENTARY Hx Dermatological Problems: No - MUSCULOSKELETAL/RHEUMATOLOGICAL Hx Arthritis: Yes - GASTROINTESTINAL Hx Gastritis: Yes - GENITOURINARY/GYNECOLOGICAL Hx Genitourinary Disorders: Yes Hx Urinary Tract Infection: Yes - PSYCHIATRIC Hx Anxiety: Yes Hx Depression: Yes Hx Substance Use: No - SURGICAL HISTORY Hx Appendectomy: Yes - ANESTHESIA Hx Anesthesia: Yes Hx Anesthesia Reactions: No Hx Malignant Hyperthermia: No Meds Allergies/Adverse Reactions: Allergies Allergy/AdvReac Type Severity Reaction Status Date / Time Iodinated Contrast- Oral and Allergy URTICARIA Verified 04/25/18 15:39 IV Dye - Medications Medications: Current Medications Acetaminophen (Tylenol 325mg Tab) 650 mg PO Q6 PRN PRN Reason: Pain, moderate (4-7) Last Admin: 04/27/18 08:05 Dose: 650 mg Al Hydrox/Mg Hydrox/Simethicone (Maalox Plus 30 Ml) 30 ml PO PCHS PRN PRN Reason: Indigestion / Heartburn Last Admin: 04/25/18 18:00 Dose: 30 ml Albuterol (Ventolin Hfa 90 Mcg/Actuation (8 G)) 2 puff IH RQ6 PRN PRN Reason: Shortness of Breath Alprazolam (Xanax) 0.5 mg PO HS PRN PRN Reason: Anxiety Aspirin (Aspirin Chewable) 81 mg PO DAILY [facility] Last Admin: 04/26/18 09:12 Dose: 81 mg Dextrose (Dextrose 50% Inj) 0 ml IVP .STAT PRN; Protocol PRN Reason: Hypoglycemia Protocol Dextrose (Glutose 15) 0 gm PO .ONCE PRN; Protocol PRN Reason: Hypoglycemia Protocol Dextrose (Dextrose 50% Inj) 0 ml IV STAT PRN; Protocol PRN Reason: Hypoglycemia Protocol Dextrose (Glutose 15) 0 gm PO ONCE PRN; Protocol PRN Reason: Hypoglycemia Protocol Docusate Sodium (Colace) 100 mg PO BID [facility] Last Admin: 04/27/18 10:25 Dose: 100 mg Escitalopram Oxalate (Lexapro) 20 mg PO DAILY [facility] Last Admin: 04/27/18 10:26 Dose: 20 mg Glucagon (Glucagen Diagnostic Kit) 0 mg IM .STAT PRN; Protocol PRN Reason: Hypoglycemia Protocol Glucagon (Glucagen Diagnostic Kit) 0 mg IM STAT PRN; Protocol PRN Reason: Hypoglycemia Protocol Sodium Chloride (Sodium Chloride 0.9%) 1,000 mls @ 100 mls/hr IV .Q10H [facility] Last Admin: 04/26/18 22:58 Dose: 100 mls/hr Dextrose (Dextrose 5% In Water 1000 Ml) 1,000 mls @ 0 mls/hr IV .Q0M PRN; Protocol; Per Protocol PRN Reason: Hypoglycemia Protocol Meropenem (Merrem Iv 1 Gm Premix) 50 mls @ 100 mls/hr IVPB Q8H [facility] PRN Reason: Protocol Last Admin: 04/27/18 10:29 Dose: 100 mls/hr Dextrose (Dextrose 5% In Water 1000 Ml) 1,000 mls @ 0 mls/hr IV .Q0M PRN; Protocol; Per Protocol PRN Reason: Hypoglycemia Protocol Insulin Human Regular (Novolin R) 0 unit SC ACHS [facility] PRN Reason: Protocol Last Admin: 04/27/18 08:12 Dose: Not Given Ondansetron HCl (Zofran Inj) 4 mg IVP Q6 PRN PRN Reason: Nausea/Vomiting Last Admin: 04/27/18 08:06 Dose: 4 mg Pantoprazole Sodium (Protonix Ec Tab) 40 mg PO DAILY [facility] Last Admin: 04/27/18 10:25 Dose: 40 mg Phenazopyridine HCl (Pyridium) 200 mg PO TIDPC [facility] Stop: 04/27/18 13:31 Last Admin: 04/26/18 17:16 Dose: 200 mg Rivaroxaban (Xarelto) 20 mg PO DAILY [facility] Last Admin: 04/26/18 09:13 Dose: 20 mg Rosuvastatin Calcium (Crestor) 10 mg PO HS [facility] Last Admin: 04/26/18 21:29 Dose: 10 mg Fluticasone/Salmeterol (Advair Diskus 100/50) 1 puff INH RQ12 [facility] Last Admin: 04/27/18 08:12 Dose: 1 puff Trazodone HCl (Desyrel) 100 mg PO HS [facility] Last Admin: 04/26/18 21:29 Dose: 100 mg Results - Vital Signs Recent Vital Signs: Last Vital Signs Temp 98.1 F 04/27/18 07:00 Pulse 88 04/27/18 07:38 Resp 20 04/27/18 07:00 BP 118/76 04/27/18 07:00 Pulse Ox 96 04/27/18 07:00 - Labs Result Diagrams: 04/27/18 08:32 04/27/18 08:32 Labs: Laboratory Results - last 24 hr 04/26/18 04/26/18 04/26/18 11:10 16:30 22:02 WBC RBC Hgb Hct MCV MCH MCHC RDW Plt Count MPV Neut % (Auto) Lymph % (Auto) Hughes % (Auto) Eos % (Auto) Baso % (Auto) Neut # (Auto) Lymph # (Auto) Hughes # (Auto) Eos # (Auto) Baso # (Auto) PT INR APTT Sodium Potassium Chloride Carbon Dioxide Anion Gap BUN Creatinine Est GFR ( Amer) Est GFR (Non-Af Amer) POC Glucose (mg/dL) 169 H 122 H 165 H Random Glucose Calcium Phosphorus Magnesium Total Bilirubin AST ALT Alkaline Phosphatase Total Protein Albumin Globulin Albumin/Globulin Ratio 04/27/18 04/27/18 04/27/18 08:32 08:32 08:32 WBC 6.3 RBC 3.68 L Hgb 10.3 L Hct 30.9 L MCV 83.9 MCH 27.9 MCHC 33.3 RDW 14.0 Plt Count 184 MPV 9.8 Neut % (Auto) 65.9 Lymph % (Auto) 20.7 Hughes % (Auto) 12.6 H Eos % (Auto) 0.4 Baso % (Auto) 0.4 Neut # (Auto) 4.1 Lymph # (Auto) 1.3 Hughes # (Auto) 0.8 Eos # (Auto) 0.0 Baso # (Auto) 0.0 PT 12.5 H INR 1.1 APTT 35 H Sodium 141 Potassium 4.7 Chloride 103 Carbon Dioxide 31 H Anion Gap 12 BUN 13 Creatinine 0.8 Est GFR ( Amer) > 60 Est GFR (Non-Af Amer) > 60 POC Glucose (mg/dL) Random Glucose 169 H Calcium 9.1 Phosphorus 3.2 Magnesium 1.7 Total Bilirubin 0.3 AST 22 ALT 14 Alkaline Phosphatase 79 Total Protein 6.9 Albumin 3.4 L Globulin 3.5 Albumin/Globulin Ratio 1.0 Assessment & Plan - Assessment and Plan (Free Text) Assessment: UTI R hydronephrosis Small R renal calculus full note t/f YS - Date & Time Date: 04/27/18 Time: 10:05
[2018-04-27] MEDS: Dextrose 5%/0.9% NS 1,000 ML IV SCH (21:19)
--- NOTE | 2018-04-27 21:26 | CP.PCM.PN ---
Subjective - Date & Time of Evaluation Date of Evaluation: 04/27/18 Time of Evaluation: 02:30 - Subjective Subjective: dictated Objective - Vital Signs/Intake and Output Vital Signs (last 24 hours): Temp Pulse Resp BP Pulse Ox 98.1 F 87 20 120/70 95 04/27/18 15:50 04/27/18 15:50 04/27/18 15:50 04/27/18 15:50 04/27/18 15:50 - Medications Medications: Current Medications Acetaminophen (Tylenol 325mg Tab) 650 mg PO Q6 PRN PRN Reason: Pain, moderate (4-7) Last Admin: 04/27/18 08:05 Dose: 650 mg Al Hydrox/Mg Hydrox/Simethicone (Maalox Plus 30 Ml) 30 ml PO PCHS PRN PRN Reason: Indigestion / Heartburn Last Admin: 04/25/18 18:00 Dose: 30 ml Albuterol (Ventolin Hfa 90 Mcg/Actuation (8 G)) 2 puff IH RQ6 PRN PRN Reason: Shortness of Breath Alprazolam (Xanax) 0.5 mg PO HS PRN PRN Reason: Anxiety Aspirin (Aspirin Chewable) 81 mg PO DAILY [facility] Last Admin: 04/26/18 09:12 Dose: 81 mg Dextrose (Dextrose 50% Inj) 0 ml IVP .STAT PRN; Protocol PRN Reason: Hypoglycemia Protocol Dextrose (Glutose 15) 0 gm PO .ONCE PRN; Protocol PRN Reason: Hypoglycemia Protocol Dextrose (Dextrose 50% Inj) 0 ml IV STAT PRN; Protocol PRN Reason: Hypoglycemia Protocol Dextrose (Glutose 15) 0 gm PO ONCE PRN; Protocol PRN Reason: Hypoglycemia Protocol Docusate Sodium (Colace) 100 mg PO BID [facility] Last Admin: 04/27/18 17:48 Dose: Not Given Escitalopram Oxalate (Lexapro) 20 mg PO DAILY [facility] Last Admin: 04/27/18 10:26 Dose: 20 mg Glucagon (Glucagen Diagnostic Kit) 0 mg IM .STAT PRN; Protocol PRN Reason: Hypoglycemia Protocol Glucagon (Glucagen Diagnostic Kit) 0 mg IM STAT PRN; Protocol PRN Reason: Hypoglycemia Protocol Dextrose (Dextrose 5% In Water 1000 Ml) 1,000 mls @ 0 mls/hr IV .Q0M PRN; Protocol; Per Protocol PRN Reason: Hypoglycemia Protocol Meropenem (Merrem Iv 1 Gm Premix) 50 mls @ 100 mls/hr IVPB Q8H [facility] PRN Reason: Protocol Last Admin: 04/27/18 17:49 Dose: 100 mls/hr Dextrose (Dextrose 5% In Water 1000 Ml) 1,000 mls @ 0 mls/hr IV .Q0M PRN; Protocol; Per Protocol PRN Reason: Hypoglycemia Protocol Dextrose/Sodium Chloride (Dextrose 5%/0.9% Ns 1000 Ml) 1,000 mls @ 75 mls/hr IV .[id number] [facility] Last Admin: 04/27/18 21:19 Dose: 75 mls/hr Insulin Human Regular (Novolin R) 0 unit SC ACHS [facility] PRN Reason: Protocol Last Admin: 04/27/18 17:49 Dose: Not Given Ondansetron HCl (Zofran Inj) 4 mg IVP Q6 PRN PRN Reason: Nausea/Vomiting Last Admin: 04/27/18 08:06 Dose: 4 mg Pantoprazole Sodium (Protonix Ec Tab) 40 mg PO DAILY [facility] Last Admin: 04/27/18 10:25 Dose: 40 mg Rivaroxaban (Xarelto) 20 mg PO DAILY [facility] Last Admin: 04/26/18 09:13 Dose: 20 mg Rosuvastatin Calcium (Crestor) 10 mg PO HS [facility] Last Admin: 04/27/18 21:16 Dose: Not Given Fluticasone/Salmeterol (Advair Diskus 100/50) 1 puff INH RQ12 [facility] Last Admin: 04/27/18 19:33 Dose: 1 puff Trazodone HCl (Desyrel) 100 mg PO HS [facility] Last Admin: 04/27/18 21:16 Dose: Not Given - Labs Labs: 04/27/18 08:32 04/27/18 08:32 PT 12.5 SECONDS (9.7-12.2) H 04/27/18 08:32 INR 1.1 04/27/18 08:32 APTT 35 SECONDS (21-34) H 04/27/18 08:32
[2018-04-27] MEDS ORDERED: Iohexol 240 (50 ml) ONE (22:24)
[2018-04-27] MEDS ORDERED: Propofol 10 mg/ml Inj (20 ML) ONE (22:30)
[2018-04-27] MEDS ORDERED: Succinylcholine Chloride 20 mg/ml Syr (5 ml) IV ONE (22:42)
[2018-04-27] MEDS ORDERED: Lidocaine 2% Jelly (Uro-Jet) ONE (22:54)
--- NOTE | 2018-04-27 22:57 | PCM.SURG1 ---
Surgeon's Initial Post Op Note - Surgeon's Notes Surgeon: Megan Echeverria Ditch Inspector: none Type of Anesthesia: General LMA Pre-Operative Diagnosis: R hydronephrosis Operative Findings: same, cystitis Post-Operative Diagnosis: same Operation Performed: cysto, R rtg pyelogram,. insertion of R ureteral stent. EUA Specimen/Specimens Removed: urine Estimated Blood Loss: EBL {In ML}: 0 Blood Products Given: N/A Drains Used: No Drains Post-Op Condition: Good Date of Surgery/Procedure: 04/27/18 Time of Surgery/Procedure: 22:57
[2018-04-27] MEDS: HYDROmorphone 0.5 mg/0.5 ml ISec IVP PRN ×2 (23:15→23:30)
--- NOTE | 2018-04-27 23:51 | PN ---
DATE: 04/27/2018 SUBJECTIVE: Marlena Lynch was seen today. She still complains of right flank pain and suprapubic pain and dysuria, and so we had asked for urology eval, and she was seen by urologist. We will wait for their final report and consult. Meanwhile, I am continuing antibiotics. OBJECTIVE: VITAL SIGNS: T-max is 98.1, pulse 87, blood pressure 120/70, respirations are 20. HEENT: Head is atraumatic, normocephalic. NECK: Supple. LUNGS: Clear. No crackles or rales present. HEART: S1, S2 is regular. ABDOMEN: Soft, nontender. No guarding. No rigidity present. BACK: Right CVA tenderness present. Mild suprapubic tenderness. EXTREMITIES: Have no edema, clubbing, or cyanosis but she complains of neuropathy and pain. White count is 6.3, hemoglobin 10.3, hematocrit 30.9, platelet count is 184. She has no nausea, no vomiting today. is 141, potassium 4.7, chloride is 103, CO2 is 31, BUN is 13, creatinine 0.8. Cultures show blood and urine culture is negative, and she does have UTI with pyuria and right hydro and came in with ESBL and has ESBL in the urine, and she is on meropenem at this time, and we will continue that and follow recommendations of Dr. Echeverria. We will follow. IMPRESSION: Right hydronephrosis, urinary tract infection, diabetic, diabetic neuropathy, gastroparesis. Continue meropenem at this time which was started on when she came in, which was on the 10th, and today is the third day. Josh Martinez MD
[2018-04-28 00:45] VITALS: RESP 20
[2018-04-28] MEDS: Meropenem IV 1 gm in NS 50 ML IVPB SCH ×3 (00:56→17:14)
[2018-04-28] MEDS: Fluticasone-Salmeterol 100-50mcg Diskus INH SCH ×2 (07:46→20:16)
--- NOTE | 2018-04-28 07:48 | CON ---
DATE: 04/27/2018 Urology consultation is requested by Meir Monet. Urology consultation filled by Dr. Kelli Echeverria. REASON FOR CONSULTATION: Hydronephrosis. The patient is a 57-year-old female who presented to the emergency room with chest pain. The patient was evaluated for cardiac disease. She had subsequent improvement in her chest pain. The patient also reported she had suprapubic pain. She was treated with ____ for presumed urinary tract infection last week. The patient now reports that she has persistent dysuria. She also reports that she has right flank pain. The patient has significant past medical history including hypertension, diabetes, hyperlipidemia. Patient has a history of pulmonary embolus. The patient reports that she had surgery for kidney stones. She also had previous appendectomy and previous section x2. The patient is being treated for COPD and for diabetes. See attached medications. The patient has also been taking Xarelto. The patient reports no recent fever or rigors. No hematuria. The patient has persistent flank pain. The patient has had infectious disease consultation during this admission. She has been treated with IV antibiotic therapy. The laboratory data has been reviewed. White blood count 6800. Hematocrit is 31.8. BUN 11, creatinine 0.7. PHYSICAL EXAMINATION: GENERAL: The patient is a well-developed, well-nourished female appearing her stated age. ABDOMEN: Soft. Nondistended. There is mild mid and lower abdominal tenderness. The patient has mild right CVA tenderness as well. CAT scan is reviewed. There is dilation of the right renal collecting system. There is a small right renal stone which is not accounting for renal obstruction as the stone is located peripherally in a polar position. Also noted on the CAT scan are multiple pelvic calcifications which may be ____ or may be a ureteral calculus. The laboratory data further reviewed. Urine culture reveals no growth. IMPRESSION: A 57-year-old female with hydronephrosis. Etiology of hydronephrosis is not clear from the CT scan. The patient has history of urolithiasis. In view of the persistent pain and the hydronephrosis, I will consider the need for cystoscopy, retrograde pyelogram, and stent insertion. I will discuss the matter further with the medical staff as well as with the patient. Further therapy to follow according to the patient's clinical course. Thank you for recommending the patient for urology consultation. [place] MD Jacki cc: Barbie Monet md
[2018-04-28 07:55] LABS: BASO % 0.4 % (0.0-2.0); EOS # 0.1 K/uL (0.0-0.7); EOS % 0.8 % (0.0-4.0); HEMOGLOBIN 10.1 g/dL (11.0-16.0); LYMPH # 1.2 K/uL (1.0-4.3); MEAN CELL VOLUME 84.3 fL (81.0-99.0); MEAN CORPUSCULAR HEMOGLOBIN 27.5 pg (27.0-31.0); MEAN CORPUSCULAR HGB CONC 32.6 g/dL (33.0-37.0); MEAN PLATELET VOLUME 9.8 fL (7.2-11.7); MONO # 0.8 K/uL (0.0-0.8); MONO % 11.9 % (0.0-10.0); NEUT # 4.4 K/uL (1.8-7.0); NEUT % 67.9 % (50.0-75.0); NRBC % 0.1 % (0.0-2.0); RBC 3.67 Mil/uL (3.80-5.20); RED CELL DISTRIBUTION WIDTH 13.9 % (11.5-14.5); WHITE BLOOD COUNT 6.5 K/uL (4.8-10.8)
[2018-04-28 07:58] LABS: ALB/GLOB RATIO 1.2 (1.0-2.1); ALBUMIN 3.6 g/dL (3.5-5.0); ALT/SGPT 17 U/L (9-52); AST/SGOT 19 U/L (14-36); BLOOD UREA NITROGEN 11 mg/dL (7-17); CALCIUM 8.7 mg/dl (8.6-10.4); GFR AFRICAN-AMERICAN > 60; GFR NON-AFRICAN AMERICAN > 60
[2018-04-28] MEDS: (Novolin R) Insulin Human Regular 100 units/ml vial SC SCH ×4 (08:44→21:40)
--- NOTE | 2018-04-28 09:21 | CP.PCM.PN ---
Objective - Vital Signs/Intake and Output Vital Signs (last 24 hours): Temp Pulse Resp BP Pulse Ox 98.4 F 82 20 103/67 95 04/28/18 07:00 04/28/18 07:00 04/28/18 07:00 04/28/18 07:00 04/28/18 07:00 Intake and Output: 04/28/18 04/28/18 06:59 18:59 Intake Total 1775 Balance 1775 - Medications Medications: Current Medications Acetaminophen (Tylenol 325mg Tab) 650 mg PO Q6 PRN PRN Reason: Pain, moderate (4-7) Last Admin: 04/28/18 02:51 Dose: 650 mg Al Hydrox/Mg Hydrox/Simethicone (Maalox Plus 30 Ml) 30 ml PO PCHS PRN PRN Reason: Indigestion / Heartburn Last Admin: 04/25/18 18:00 Dose: 30 ml Albuterol (Ventolin Hfa 90 Mcg/Actuation (8 G)) 2 puff IH RQ6 PRN PRN Reason: Shortness of Breath Alprazolam (Xanax) 0.5 mg PO HS PRN PRN Reason: Anxiety Aspirin (Aspirin Chewable) 81 mg PO DAILY [facility] Last Admin: 04/26/18 09:12 Dose: 81 mg Dextrose (Dextrose 50% Inj) 0 ml IVP .STAT PRN; Protocol PRN Reason: Hypoglycemia Protocol Dextrose (Glutose 15) 0 gm PO .ONCE PRN; Protocol PRN Reason: Hypoglycemia Protocol Dextrose (Dextrose 50% Inj) 0 ml IV STAT PRN; Protocol PRN Reason: Hypoglycemia Protocol Dextrose (Glutose 15) 0 gm PO ONCE PRN; Protocol PRN Reason: Hypoglycemia Protocol Docusate Sodium (Colace) 100 mg PO BID [facility] Last Admin: 04/27/18 17:48 Dose: Not Given Escitalopram Oxalate (Lexapro) 20 mg PO DAILY [facility] Last Admin: 04/27/18 10:26 Dose: 20 mg Glucagon (Glucagen Diagnostic Kit) 0 mg IM .STAT PRN; Protocol PRN Reason: Hypoglycemia Protocol Glucagon (Glucagen Diagnostic Kit) 0 mg IM STAT PRN; Protocol PRN Reason: Hypoglycemia Protocol Dextrose (Dextrose 5% In Water 1000 Ml) 1,000 mls @ 0 mls/hr IV .Q0M PRN; Protocol; Per Protocol PRN Reason: Hypoglycemia Protocol Meropenem (Merrem Iv 1 Gm Premix) 50 mls @ 100 mls/hr IVPB Q8H JADEN PRN Reason: Protocol Last Admin: 04/28/18 00:56 Dose: 100 mls/hr Dextrose (Dextrose 5% In Water 1000 Ml) 1,000 mls @ 0 mls/hr IV .Q0M PRN; Protocol; Per Protocol PRN Reason: Hypoglycemia Protocol Dextrose/Sodium Chloride (Dextrose 5%/0.9% Ns 1000 Ml) 1,000 mls @ 75 mls/hr IV .[id number] [facility] Last Admin: 04/27/18 21:19 Dose: 75 mls/hr Insulin Human Regular (Novolin R) 0 unit SC ACHS [facility] PRN Reason: Protocol Last Admin: 04/27/18 21:26 Dose: Not Given Ondansetron HCl (Zofran Inj) 4 mg IVP Q6 PRN PRN Reason: Nausea/Vomiting Last Admin: 04/27/18 08:06 Dose: 4 mg Pantoprazole Sodium (Protonix Ec Tab) 40 mg PO DAILY [facility] Last Admin: 04/27/18 10:25 Dose: 40 mg Rivaroxaban (Xarelto) 20 mg PO DAILY [facility] Last Admin: 04/26/18 09:13 Dose: 20 mg Rosuvastatin Calcium (Crestor) 10 mg PO HS [facility] Last Admin: 04/27/18 21:16 Dose: Not Given Fluticasone/Salmeterol (Advair Diskus 100/50) 1 puff INH RQ12 [facility] Last Admin: 04/28/18 07:46 Dose: 1 puff Trazodone HCl (Desyrel) 100 mg PO HS [facility] Last Admin: 04/27/18 21:16 Dose: Not Given - Labs Labs: 04/28/18 07:36 04/28/18 07:36 PT 12.5 SECONDS (9.7-12.2) H 04/27/18 08:32 INR 1.1 04/27/18 08:32 APTT 35 SECONDS (21-34) H 04/27/18 08:32
[2018-04-28] MEDS: Pantoprazole 40 mg EC Tab PO SCH (09:34)
--- NOTE | 2018-04-28 09:54 | RAD ---
HISTORY: RT. HYDRONEPHROSIS COMPARISON: Abdominal radiographs performed earlier the same day. FINDINGS: BOWEL: Prominent amount of retained colonic stool. No obstruction. No free air. BONES: Normal. OTHER FINDINGS: 2 mm calcification overlying the upper pole of the right renal shadow. IMPRESSION: 2 mm calcification overlying the upper pole of the right renal shadow. No other calcifications identified overlying the bilateral genitourinary tracts.
--- NOTE | 2018-04-28 10:38 | CP.PCM.DIS ---
Provider - Provider Date of Admission: 04/25/18 15:07 Attending physician: Dave Menezes DO Hospital Course - Lab Results Lab Results: Micro Results 04/25/18 17:30 Blood-Venous Blood Culture - Preliminary NO GROWTH AFTER 48 HOURS 04/25/18 16:45 Blood-Venous Blood Culture - Preliminary NO GROWTH AFTER 48 HOURS 04/25/18 14:06 Urine,Clean Catch Urine Culture - Final No Growth (<1,000 CFU/ML) Most Recent Lab Values WBC 6.5 K/uL (4.8-10.8) 04/28/18 07:36 RBC 3.67 Mil/uL (3.80-5.20) L 04/28/18 07:36 Hgb 10.1 g/dL (11.0-16.0) L 04/28/18 07:36 Hct 30.9 % (34.0-47.0) L 04/28/18 07:36 MCV 84.3 fL (81.0-99.0) 04/28/18 07:36 MCH 27.5 pg (27.0-31.0) 04/28/18 07:36 MCHC 32.6 g/dL (33.0-37.0) L 04/28/18 07:36 RDW 13.9 % (11.5-14.5) 04/28/18 07:36 Plt Count 197 K/uL (130-400) 04/28/18 07:36 MPV 9.8 fL (7.2-11.7) 04/28/18 07:36 Neut % (Auto) 67.9 % (50.0-75.0) 04/28/18 07:36 Lymph % (Auto) 19.0 % (20.0-40.0) L 04/28/18 07:36 [place] % (Auto) 11.9 % (0.0-10.0) H 04/28/18 07:36 Eos % (Auto) 0.8 % (0.0-4.0) 04/28/18 07:36 Baso % (Auto) 0.4 % (0.0-2.0) 04/28/18 07:36 Neut # (Auto) 4.4 K/uL (1.8-7.0) 04/28/18 07:36 Lymph # (Auto) 1.2 K/uL (1.0-4.3) 04/28/18 07:36 [place] # (Auto) 0.8 K/uL (0.0-0.8) 04/28/18 07:36 Eos # (Auto) 0.1 K/uL (0.0-0.7) 04/28/18 07:36 Baso # (Auto) 0.0 K/uL (0.0-0.2) 04/28/18 07:36 PT 12.5 SECONDS (9.7-12.2) H 04/27/18 08:32 INR 1.1 04/27/18 08:32 APTT 35 SECONDS (21-34) H 04/27/18 08:32 Sodium 137 mmol/L (132-148) 04/28/18 07:36 Potassium 4.4 mmol/L (3.6-5.2) 04/28/18 07:36 Chloride 98 mmol/L (98-107) 04/28/18 07:36 Carbon Dioxide 33 mmol/L (22-30) H 04/28/18 07:36 Anion Gap 11 (10-20) 04/28/18 07:36 BUN 11 mg/dL (7-17) 04/28/18 07:36 Creatinine 0.6 mg/dL (0.7-1.2) L 04/28/18 07:36 Est GFR ( Amer) > 60 04/28/18 07:36 Est GFR (Non-Af Amer) > 60 04/28/18 07:36 POC Glucose (mg/dL) 167 mg/dL (65-110) H 04/28/18 06:40 Random Glucose 184 mg/dL (65-105) H 04/28/18 07:36 Hemoglobin A1c 6.8 % (4.2-6.5) H 04/26/18 08:02 Calcium 8.7 mg/dl (8.6-10.4) 04/28/18 07:36 Phosphorus 3.1 mg/dL (2.5-4.5) 04/28/18 07:36 Magnesium 1.5 mg/dL (1.6-2.3) L 04/28/18 07:36 Total Bilirubin 0.5 mg/dL (0.2-1.3) 04/28/18 07:36 AST 19 U/L (14-36) 04/28/18 07:36 ALT 17 U/L (9-52) 04/28/18 07:36 Alkaline Phosphatase 50 U/L (38-126) 04/28/18 07:36 Total Creatine Kinase 34 U/L (30-135) 04/26/18 02:21 CK-MB (Mass) 0.37 ng/mL (0.0-3.38) 04/26/18 02:21 Troponin I < 0.0120 ng/mL (0.00-0.120) 04/26/18 02:21 Total Protein 6.7 g/dL (6.3-8.3) 04/28/18 07:36 Albumin 3.6 g/dL (3.5-5.0) 04/28/18 07:36 Globulin 3.1 gm/dL (2.2-3.9) 04/28/18 07:36 Albumin/Globulin Ratio 1.2 (1.0-2.1) 04/28/18 07:36 Triglycerides 169 mg/dL (0-149) H D 04/26/18 08:02 Cholesterol 178 mg/dL (0-199) 04/26/18 08:02 LDL Cholesterol Direct 113 mg/dL (0-129) 04/26/18 08:02 HDL Cholesterol 33 mg/dL (30-70) 04/26/18 08:02 Free T4 1.31 ng/dL (0.78-2.19) 04/26/18 08:02 TSH 3rd Generation 1.76 mIU/L (0.46-4.68) 04/26/18 08:02 Urine Color Carmen (YELLOW) 04/25/18 14:06 Urine Clarity Clear (Clear) 04/25/18 14:06 Urine pH 7.0 (5.0-8.0) 04/25/18 14:06 Ur Specific [place] 1.015 (1.003-1.030) 04/25/18 14:06 Urine Protein 2+ mg/dL (NEGATIVE) H 04/25/18 14:06 Urine Glucose (UA) Normal mg/dL (Normal) 04/25/18 14:06 Urine Ketones Negative mg/dL (NEGATIVE) 04/25/18 14:06 Urine Blood Negative (NEGATIVE) 04/25/18 14:06 Urine Nitrate Negative (NEGATIVE) 04/25/18 14:06 Urine Bilirubin Negative (NEGATIVE) 04/25/18 14:06 Urine Urobilinogen Normal mg/dL (0.2-1.0) 04/25/18 14:06 Ur Leukocyte Esterase Neg Ryan/uL (Negative) 04/25/18 14:06 Urine WBC (Auto) 1 /hpf (0-5) 04/25/18 14:06 Urine RBC (Auto) 1 /hpf (0-3) 04/25/18 14:06 Ur Squamous Epith Cells 1 /hpf (0-5) 04/25/18 14:06 Discharge Exam - Head Exam Head Exam: ATRAUMATIC, NORMAL INSPECTION Discharge Plan - Follow Up Plan Condition: FAIR Disposition: HOME/ ROUTINE Referrals: Kelli Echeverria MD [Staff Provider] -
--- NOTE | 2018-04-28 12:05 | RAD ---
PROCEDURE: Intraoperative Fluoroscopy. HISTORY: RT. HYDRONEPHROSIS FINDINGS: Fluoroscopic assistance was provided. Fluoroscopy time = 26.3 seconds. Radiation dose = 2.57 mGy - cm. Please refer to the operative report from Dr. DAY, [place].
--- NOTE | 2018-04-28 13:44 | CP.PCM.PN ---
<Shannan Cooley DoraBettye - Last Filed: 04/28/18 13:41> Subjective - Date & Time of Evaluation Date of Evaluation: 04/28/18 Time of Evaluation: 07:00 - Subjective Subjective: Medicine Progress Note: Patient was seen and examined at bedside in the AM. Patient states she is feeling a lot better today she states her right lower back pain has improved. She denies nausea, vomiting, fever or chills. Patient has voided this morning. Patient denies blood or pain during urination. Objective - Vital Signs/Intake and Output Vital Signs (last 24 hours): Temp Pulse Resp BP Pulse Ox 98.4 F 82 20 103/67 95 04/28/18 07:00 04/28/18 08:05 04/28/18 07:00 04/28/18 07:00 04/28/18 07:00 Intake and Output: 04/28/18 04/28/18 06:59 18:59 Intake Total 1775 Balance 1775 - Medications Medications: Current Medications Acetaminophen (Tylenol 325mg Tab) 650 mg PO Q6 PRN PRN Reason: Pain, moderate (4-7) Last Admin: 04/28/18 02:51 Dose: 650 mg Al Hydrox/Mg Hydrox/Simethicone (Maalox Plus 30 Ml) 30 ml PO PCHS PRN PRN Reason: Indigestion / Heartburn Last Admin: 04/25/18 18:00 Dose: 30 ml Albuterol (Ventolin Hfa 90 Mcg/Actuation (8 G)) 2 puff IH RQ6 PRN PRN Reason: Shortness of Breath Alprazolam (Xanax) 0.5 mg PO HS PRN PRN Reason: Anxiety Aspirin (Aspirin Chewable) 81 mg PO DAILY [facility] Last Admin: 04/26/18 09:12 Dose: 81 mg Dextrose (Dextrose 50% Inj) 0 ml IVP .STAT PRN; Protocol PRN Reason: Hypoglycemia Protocol Dextrose (Glutose 15) 0 gm PO .ONCE PRN; Protocol PRN Reason: Hypoglycemia Protocol Dextrose (Dextrose 50% Inj) 0 ml IV STAT PRN; Protocol PRN Reason: Hypoglycemia Protocol Dextrose (Glutose 15) 0 gm PO ONCE PRN; Protocol PRN Reason: Hypoglycemia Protocol Docusate Sodium (Colace) 100 mg PO BID [facility] Last Admin: 06/13/18 09:34 Dose: 100 mg Escitalopram Oxalate (Lexapro) 20 mg PO DAILY [facility] Last Admin: 04/28/18 09:34 Dose: 20 mg Glucagon (Glucagen Diagnostic Kit) 0 mg IM .STAT PRN; Protocol PRN Reason: Hypoglycemia Protocol Glucagon (Glucagen Diagnostic Kit) 0 mg IM STAT PRN; Protocol PRN Reason: Hypoglycemia Protocol Dextrose (Dextrose 5% In Water 1000 Ml) 1,000 mls @ 0 mls/hr IV .Q0M PRN; Protocol; Per Protocol PRN Reason: Hypoglycemia Protocol Meropenem (Merrem Iv 1 Gm Premix) 50 mls @ 100 mls/hr IVPB Q8H JADEN PRN Reason: Protocol Last Admin: 04/28/18 09:34 Dose: 100 mls/hr Dextrose (Dextrose 5% In Water 1000 Ml) 1,000 mls @ 0 mls/hr IV .Q0M PRN; Protocol; Per Protocol PRN Reason: Hypoglycemia Protocol Dextrose/Sodium Chloride (Dextrose 5%/0.9% Ns 1000 Ml) 1,000 mls @ 75 mls/hr IV .[id number] [facility] Last Admin: 04/27/18 21:19 Dose: 75 mls/hr Insulin Human Regular (Novolin R) 0 unit SC ACHS JADEN PRN Reason: Protocol Last Admin: 04/28/18 12:35 Dose: 2 u Ondansetron HCl (Zofran Inj) 4 mg IVP Q6 PRN PRN Reason: Nausea/Vomiting Last Admin: 04/27/18 08:06 Dose: 4 mg Pantoprazole Sodium (Protonix Ec Tab) 40 mg PO DAILY [facility] Last Admin: 04/28/18 09:34 Dose: 40 mg Rivaroxaban (Xarelto) 20 mg PO DAILY [facility] Last Admin: 04/26/18 09:13 Dose: 20 mg Rosuvastatin Calcium (Crestor) 10 mg PO HS [facility] Last Admin: 04/27/18 21:16 Dose: Not Given Fluticasone/Salmeterol (Advair Diskus 100/50) 1 puff INH RQ12 [facility] Last Admin: 04/28/18 07:46 Dose: 1 puff Trazodone HCl (Desyrel) 100 mg PO HS [facility] Last Admin: 04/27/18 21:16 Dose: Not Given - Labs Labs: 04/28/18 07:36 04/28/18 07:36 PT 12.5 SECONDS (9.7-12.2) H 04/27/18 08:32 INR 1.1 04/27/18 08:32 APTT 35 SECONDS (21-34) H 04/27/18 08:32 - Constitutional Appears: No Acute Distress - Head Exam Head Exam: ATRAUMATIC, NORMAL INSPECTION - Eye Exam Eye Exam: EOMI, Normal appearance - ENT Exam ENT Exam: Mucous Membranes Moist - Respiratory Exam Respiratory Exam: Clear to Ausculation Bilateral, NORMAL BREATHING PATTERN - Cardiovascular Exam Cardiovascular Exam: REGULAR RHYTHM, +S1, +S2 - GI/Abdominal Exam GI & Abdominal Exam: Soft, Normal Bowel Sounds. absent: Tenderness - Extremities Exam Extremities Exam: Normal Inspection - Neurological Exam Neurological Exam: Alert, Awake, Oriented x3 - Psychiatric Exam Psychiatric exam: Normal Affect - Skin Skin Exam: Normal Color Assessment and Plan - Assessment and Plan (Free Text) Assessment: Disposition: Patient is stable for discharge to rehab pending approval. Patient to continue Meropenem 1gm q8h from 04/25/18 to 05/04/18. Patient to follow up with Dr. Echeverria as an outpatient. Urinary tract infection - Patient seen in ER on 04/20/18 for UTI symptoms - patient was discharged from the emergency room on 04/20/18 with macrobid, pyridium, ultram at that time - urine culture from 04/20/18 is positive for E. coli, best CECE of 0.[address] Martinez, ID, consulted- help appreciated - Medication: * Meropenem 1gm q8h started on 04/25/18 until 05/04/18 * PICC line placed 04/28/18 - Repeat Urine culture (04/25/18): negative - Urine Culture (04/25/18): negative - Blood culture (04/25/18): negative - preliminary Flank pain - patient continues to have right flank pain - she has history right nephrolithiasis requiring surgery in the past - Abdominal/Pelvis CT (04/25/18): No significant interval change compared to the previous exam. Re- demonstration of mild right hydronephrosis. No evidence of obstructing stone. 3 millimeter calculus at the upper pole of the right kidney. No evidence of other acute pathology in the abdomen and pelvis. - Uro Consult: Dr. Kelli Echeverria --> help appreciated - s/p cysto right pyelogram/insertion of right ureteral stent 04/27/18 - patient to follow up with Dr. Echeverria as an outpatient. - Abdominal xray with oblique view: Tiny and nonobstructing calculus upper pole right kidney. Chest pain - resolved rule out ACS - Monitor on telemetry - Chest xray: No active disease. - Trop x3 negative - EKG with normal sinus rhythm - ECHO (10/2016): Left ventricular ejection fraction is within the normal range (EF 77%). No regional wall motion abnormalities noted. - TSH 1.76; free T4 1.31 - Detsky score of 5 - Class I risk (6% complications) - Medication * patient received aspirin 325mg in ER, * Aspirin 81mg daily History of pulmonary embolus (PE) - History of pulmonary embolus 11/2016 - per chart - continue home medication Xarelto 20mg PO daily History of Depression - Patient takes lexapro 20mg daily and trazodone 100mg PO HS- will continue History of HLD - continue equivalent of home med atorvastatin 20mg (crestor 10mg) - Lipid Panel: Triglycerides 169; Total Cholesterol 178; LDL 113; HDL 33 History of Diabetes mellitus - hA1c 6.8 - holding home med janumet - accuchecks achs - insulin sliding scale History of Asthma - continue home medication advair diskus 100/50 BID - continue ventolin HFA q6prn dyspnea History of Gastritis - continue protonix 40mg PO daily - maalox prn Prophylaxis - Patient on Xarelto - continue home medication protonix 40mg PO daily - SCDs - PT eval and treat Case discussed with Dr. Riri Cooley PGY-1 <Dave Menezes - Last Filed: 04/28/18 15:53> Objective - Vital Signs/Intake and Output Vital Signs (last 24 hours): Temp Pulse Resp BP Pulse Ox 98.4 F 82 20 103/67 95 04/28/18 07:00 04/28/18 08:05 04/28/18 07:00 04/28/18 07:00 04/28/18 07:00 Intake and Output: 04/28/18 04/28/18 06:59 18:59 Intake Total 1775 1000 Balance 1775 1000 - Medications Medications: Current Medications Acetaminophen (Tylenol 325mg Tab) 650 mg PO Q6 PRN PRN Reason: Pain, moderate (4-7) Last Admin: 04/28/18 02:51 Dose: 650 mg Al Hydrox/Mg Hydrox/Simethicone (Maalox Plus 30 Ml) 30 ml PO PCHS PRN PRN Reason: Indigestion / Heartburn Last Admin: 04/25/18 18:00 Dose: 30 ml Albuterol (Ventolin Hfa 90 Mcg/Actuation (8 G)) 2 puff IH RQ6 PRN PRN Reason: Shortness of Breath Alprazolam (Xanax) 0.5 mg PO HS PRN PRN Reason: Anxiety Aspirin (Aspirin Chewable) 81 mg PO DAILY [facility] Last Admin: 04/26/18 09:12 Dose: 81 mg Dextrose (Dextrose 50% Inj) 0 ml IVP .STAT PRN; Protocol PRN Reason: Hypoglycemia Protocol Dextrose (Glutose 15) 0 gm PO .ONCE PRN; Protocol PRN Reason: Hypoglycemia Protocol Dextrose (Dextrose 50% Inj) 0 ml IV STAT PRN; Protocol PRN Reason: Hypoglycemia Protocol Dextrose (Glutose 15) 0 gm PO ONCE PRN; Protocol PRN Reason: Hypoglycemia Protocol Docusate Sodium (Colace) 100 mg PO BID [facility] Last Admin: 04/28/18 09:34 Dose: 100 mg Escitalopram Oxalate (Lexapro) 20 mg PO DAILY [facility] Last Admin: 04/28/18 09:34 Dose: 20 mg Glucagon (Glucagen Diagnostic Kit) 0 mg IM .STAT PRN; Protocol PRN Reason: Hypoglycemia Protocol Glucagon (Glucagen Diagnostic Kit) 0 mg IM STAT PRN; Protocol PRN Reason: Hypoglycemia Protocol Dextrose (Dextrose 5% In Water 1000 Ml) 1,000 mls @ 0 mls/hr IV .Q0M PRN; Protocol; Per Protocol PRN Reason: Hypoglycemia Protocol Meropenem (Merrem Iv 1 Gm Premix) 50 mls @ 100 mls/hr IVPB Q8H JADEN PRN Reason: Protocol Last Admin: 04/28/18 09:34 Dose: 100 mls/hr Dextrose (Dextrose 5% In Water 1000 Ml) 1,000 mls @ 0 mls/hr IV .Q0M PRN; Protocol; Per Protocol PRN Reason: Hypoglycemia Protocol Dextrose/Sodium Chloride (Dextrose 5%/0.9% Ns 1000 Ml) 1,000 mls @ 75 mls/hr IV .[id number] [facility] Last Admin: 04/27/18 21:19 Dose: 75 mls/hr Insulin Human Regular (Novolin R) 0 unit SC ACHS JADEN PRN Reason: Protocol Last Admin: 04/28/18 12:35 Dose: 2 u Ondansetron HCl (Zofran Inj) 4 mg IVP Q6 PRN PRN Reason: Nausea/Vomiting Last Admin: 04/27/18 08:06 Dose: 4 mg Pantoprazole Sodium (Protonix Ec Tab) 40 mg PO DAILY [facility] Last Admin: 04/28/18 09:34 Dose: 40 mg Rivaroxaban (Xarelto) 20 mg PO DAILY [facility] Last Admin: 04/26/18 09:13 Dose: 20 mg Rosuvastatin Calcium (Crestor) 10 mg PO HS [facility] Last Admin: 04/27/18 21:16 Dose: Not Given Fluticasone/Salmeterol (Advair Diskus 100/50) 1 puff INH RQ12 [facility] Last Admin: 04/28/18 07:46 Dose: 1 puff Trazodone HCl (Desyrel) 100 mg PO HS [facility] Last Admin: 04/27/18 21:16 Dose: Not Given - Labs Labs: 04/28/18 07:36 04/28/18 07:36 PT 12.5 SECONDS (9.7-12.2) H 04/27/18 08:32 INR 1.1 04/27/18 08:32 APTT 35 SECONDS (21-34) H 04/27/18 08:32 Attending/Attestation - Attestation I have personally seen and examined this patient.: Yes I have fully participated in the care of the patient.: Yes I have reviewed all pertinent clinical information, including history, physical exam and plan: Yes Notes (Text): 04/28/18 15:46 Medical attending: Patient was seen and examined by me. Agree with the above note by the resident The patient yesterday underwent cytoscopy and stent insertion. She reported very minimal pain today - overall better Because of the extensive abx resistnce to the E coli that the patient grew out - ID has recomended additional days of IV abx. Will try to get a PICC Line and she will be able to [place] abx course thank you Dave Menezes
--- NOTE | 2018-04-28 13:58 | RAD ---
HISTORY: verify right PICC COMPARISON: Chest radiograph dated 04/25/2018. FINDINGS: LUNGS: No active pulmonary disease. PLEURA: No significant pleural effusion identified, no pneumothorax apparent. CARDIOVASCULAR: Cardiomediastinal silhouette stably proper. OSSEOUS STRUCTURES: Unchanged. VISUALIZED UPPER ABDOMEN: Normal. OTHER FINDINGS: New right upper extremity PICC with catheter tip at the cavoatrial junction. IMPRESSION: New right upper extremity PICC in satisfactory position.
--- NOTE | 2018-04-28 14:13 | CP.PCM.PN ---
Subjective - Date & Time of Evaluation Date of Evaluation: 04/28/18 Time of Evaluation: 02:00 - Subjective Subjective: dictated Objective - Vital Signs/Intake and Output Vital Signs (last 24 hours): Temp Pulse Resp BP Pulse Ox 98.4 F 82 20 103/67 95 04/28/18 07:00 04/28/18 08:05 04/28/18 07:00 04/28/18 07:00 04/28/18 07:00 Intake and Output: 04/28/18 04/28/18 06:59 18:59 Intake Total 1775 Balance 1775 - Medications Medications: Current Medications Acetaminophen (Tylenol 325mg Tab) 650 mg PO Q6 PRN PRN Reason: Pain, moderate (4-7) Last Admin: 04/28/18 02:51 Dose: 650 mg Al Hydrox/Mg Hydrox/Simethicone (Maalox Plus 30 Ml) 30 ml PO PCHS PRN PRN Reason: Indigestion / Heartburn Last Admin: 04/25/18 18:00 Dose: 30 ml Albuterol (Ventolin Hfa 90 Mcg/Actuation (8 G)) 2 puff IH RQ6 PRN PRN Reason: Shortness of Breath Alprazolam (Xanax) 0.5 mg PO HS PRN PRN Reason: Anxiety Aspirin (Aspirin Chewable) 81 mg PO DAILY [facility] Last Admin: 04/26/18 09:12 Dose: 81 mg Dextrose (Dextrose 50% Inj) 0 ml IVP .STAT PRN; Protocol PRN Reason: Hypoglycemia Protocol Dextrose (Glutose 15) 0 gm PO .ONCE PRN; Protocol PRN Reason: Hypoglycemia Protocol Dextrose (Dextrose 50% Inj) 0 ml IV STAT PRN; Protocol PRN Reason: Hypoglycemia Protocol Dextrose (Glutose 15) 0 gm PO ONCE PRN; Protocol PRN Reason: Hypoglycemia Protocol Docusate Sodium (Colace) 100 mg PO BID [facility] Last Admin: 04/28/18 09:34 Dose: 100 mg Escitalopram Oxalate (Lexapro) 20 mg PO DAILY [facility] Last Admin: 04/28/18 09:34 Dose: 20 mg Glucagon (Glucagen Diagnostic Kit) 0 mg IM .STAT PRN; Protocol PRN Reason: Hypoglycemia Protocol Glucagon (Glucagen Diagnostic Kit) 0 mg IM STAT PRN; Protocol PRN Reason: Hypoglycemia Protocol Dextrose (Dextrose 5% In Water 1000 Ml) 1,000 mls @ 0 mls/hr IV .Q0M PRN; Protocol; Per Protocol PRN Reason: Hypoglycemia Protocol Meropenem (Merrem Iv 1 Gm Premix) 50 mls @ 100 mls/hr IVPB Q8H JADEN PRN Reason: Protocol Last Admin: 04/28/18 09:34 Dose: 100 mls/hr Dextrose (Dextrose 5% In Water 1000 Ml) 1,000 mls @ 0 mls/hr IV .Q0M PRN; Protocol; Per Protocol PRN Reason: Hypoglycemia Protocol Dextrose/Sodium Chloride (Dextrose 5%/0.9% Ns 1000 Ml) 1,000 mls @ 75 mls/hr IV .[id number] [facility] Last Admin: 04/27/18 21:19 Dose: 75 mls/hr Insulin Human Regular (Novolin R) 0 unit SC ACHS [facility] PRN Reason: Protocol Last Admin: 04/28/18 12:35 Dose: 2 u Ondansetron HCl (Zofran Inj) 4 mg IVP Q6 PRN PRN Reason: Nausea/Vomiting Last Admin: 04/27/18 08:06 Dose: 4 mg Pantoprazole Sodium (Protonix Ec Tab) 40 mg PO DAILY [facility] Last Admin: 04/28/18 09:34 Dose: 40 mg Rivaroxaban (Xarelto) 20 mg PO DAILY [facility] Last Admin: 04/26/18 09:13 Dose: 20 mg Rosuvastatin Calcium (Crestor) 10 mg PO HS [facility] Last Admin: 04/27/18 21:16 Dose: Not Given Fluticasone/Salmeterol (Advair Diskus 100/50) 1 puff INH RQ12 [facility] Last Admin: 04/28/18 07:46 Dose: 1 puff Trazodone HCl (Desyrel) 100 mg PO HS [facility] Last Admin: 04/27/18 21:16 Dose: Not Given - Labs Labs: 04/28/18 07:36 04/28/18 07:36 PT 12.5 SECONDS (9.7-12.2) H 04/27/18 08:32 INR 1.1 04/27/18 08:32 APTT 35 SECONDS (21-34) H 04/27/18 08:32
--- NOTE | 2018-04-28 22:37 | CARD ---
APPROVED REPORT EKG Measurement Heart [id number] <Conclusion> Normal sinus rhythm Normal ECG
--- NOTE | 2018-04-28 23:05 | PCM.URO ---
Urology Progress Note - General General: No Complaints, Tolerating Diet - Subjective Abdominal Pain: Yes (less) Flank Pain: Yes (R flank, Less) Nausea: No Vomiting: No Voiding Well: Yes Dysuria: No Hematuria: No Good Stream: Yes Stone Passed: No Dsypnea: No Chest Pain: No Fever & Chills: No - Objective Lab Results Last 24 Hours: Laboratory Results - last 24 hr 04/27/18 04/28/18 04/28/18 18:58 06:40 07:36 WBC 6.5 RBC 3.67 L Hgb 10.1 L Hct 30.9 L MCV 84.3 MCH 27.5 MCHC 32.6 L RDW 13.9 Plt Count 197 MPV 9.8 Neut % (Auto) 67.9 Lymph % (Auto) 19.0 L [place] % (Auto) 11.9 H Eos % (Auto) 0.8 Baso % (Auto) 0.4 Neut # (Auto) 4.4 Lymph # (Auto) 1.2 [place] # (Auto) 0.8 Eos # (Auto) 0.1 Baso # (Auto) 0.0 Sodium Potassium Chloride Carbon Dioxide Anion Gap BUN Creatinine Est GFR ( Amer) Est GFR (Non-Af Amer) POC Glucose (mg/dL) 102 167 H Random Glucose Calcium Phosphorus Magnesium Total Bilirubin AST ALT Alkaline Phosphatase Total Protein Albumin Globulin Albumin/Globulin Ratio 04/28/18 04/28/18 04/28/18 07:36 11:05 16:08 WBC RBC Hgb Hct MCV MCH MCHC RDW Plt Count MPV Neut % (Auto) Lymph % (Auto) [place] % (Auto) Eos % (Auto) Baso % (Auto) Neut # (Auto) Lymph # (Auto) [place] # (Auto) Eos # (Auto) Baso # (Auto) Sodium 137 Potassium 4.4 Chloride 98 Carbon Dioxide 33 H Anion Gap 11 BUN 11 Creatinine 0.6 L Est GFR ( Amer) > 60 Est GFR (Non-Af Amer) > 60 POC Glucose (mg/dL) 212 H 194 H Random Glucose 184 H Calcium 8.7 Phosphorus 3.1 Magnesium 1.5 L Total Bilirubin 0.5 AST 19 ALT 17 Alkaline Phosphatase 50 Total Protein 6.7 Albumin 3.6 Globulin 3.1 Albumin/Globulin Ratio 1.2 04/28/18 20:58 WBC RBC Hgb Hct MCV MCH MCHC RDW Plt Count MPV Neut % (Auto) Lymph % (Auto) [place] % (Auto) Eos % (Auto) Baso % (Auto) Neut # (Auto) Lymph # (Auto) [place] # (Auto) Eos # (Auto) Baso # (Auto) Sodium Potassium Chloride Carbon Dioxide Anion Gap BUN Creatinine Est GFR ( Amer) Est GFR (Non-Af Amer) POC Glucose (mg/dL) 137 H Random Glucose Calcium Phosphorus Magnesium Total Bilirubin AST ALT Alkaline Phosphatase Total Protein Albumin Globulin Albumin/Globulin Ratio Intake & Output: Intake & Output 04/28/18 04/28/18 04/29/18 06:59 18:59 06:59 Intake Total 1775 1000 Balance 1775 1000 Intake: IV 250 Intake, IV Amount 1375 600 Right Antecubital 1375 600 Oral 150 400 Other: # Voids Urine, Voided 3 2 Vital Signs: Vital Signs - 24 hr 04/27/18 04/27/18 04/27/18 23:15 23:30 23:45 Temperature 97.9 F Pulse Rate 86 84 83 Respiratory 16 12 11 L Rate Blood Pressure 117/70 106/60 123/68 O2 Sat by Pulse 99 97 97 Oximetry 04/28/18 04/28/18 04/28/18 00:00 00:15 04:00 Temperature 98 F Pulse Rate 85 94 H Respiratory 20 Rate Blood Pressure 110/67 O2 Sat by Pulse 97 97 Oximetry 04/28/18 04/28/18 04/28/18 07:00 08:05 15:49 Temperature 98.4 F 98.5 F Pulse Rate 82 82 86 Respiratory 20 20 Rate Blood Pressure 103/67 104/64 O2 Sat by Pulse 95 95 Oximetry 04/28/18 16:00 Temperature Pulse Rate 74 Respiratory Rate Blood Pressure O2 Sat by Pulse 95 Oximetry - Physical Exam Abdominal Exam: Soft, Non-Tender, Non-Distended Back: No CVA Tenderness - Plan Additional Information: IMP: stabel p cysto, stent insertion. R hydronephrosis , poss due to uretero-pevic junction obstruction. No ureteral obstruction noted on RTG pyelogram. REC/P: Stent in place. antibiotics as per ID
[2018-04-29] MEDS: Dextrose 5%/0.9% NS 1,000 ML IV SCH (02:00)
[2018-04-29] MEDS: Meropenem IV 1 gm in NS 50 ML IVPB SCH ×2 (02:48→11:59)
--- NOTE | 2018-04-29 02:52 | PN ---
DATE: 04/28/2018 SUBJECTIVE: The patient was feeling a lot better and she had a stent placed yesterday, had a right hydronephrosis, cystitis. She had a right retrograde pyelogram and insertion of a right ureteral stent. After that, she has been feeling a lot better. PHYSICAL EXAMINATION: VITAL SIGNS: T-max is 98.5, pulse is 86, blood pressure is 104/64, respirations are 20. HEENT: Head is atraumatic, normocephalic. Pupils are reacting to light. NECK: Supple. LUNGS: Clear. HEART: S1 and S2 are regular. Mild CVA tenderness present on the right side. ABDOMEN: Otherwise abdomen is soft, nontender. EXTREMITIES: Have no edema. She also got a PICC line, and she is going home. Actually she is going to go to rehab to get antibiotics, and I would give her 10 more days of antibiotics. The CBC, CMP, and ESR should be monitored. She should also follow up with Dr. Echeverria as now, she will have a stent, and she came in with the stent and she had extended-spectrum beta-lactamases, so she needs to be treated for hydronephrosis. She also has a history of nephrolithiasis. Right hydronephrosis, nephrolithiasis, urinary tract infection with extended-spectrum beta-lactamases which is meropenem sensitive E. coli. Josh Martinez MD
[2018-04-29 08:03] VITALS: BP 115/72; PULSE 116; TEMP 98.5; O2SAT 96
[2018-04-29 08:08] LABS: BASO % 0.3 % (0.0-2.0); EOS # 0.1 K/uL (0.0-0.7); EOS % 1.5 % (0.0-4.0); HEMOGLOBIN 9.9 g/dL (11.0-16.0); LYMPH # 1.9 K/uL (1.0-4.3); LYMPH % 32.2 % (20.0-40.0); MEAN CORPUSCULAR HEMOGLOBIN 27.7 pg (27.0-31.0); MEAN PLATELET VOLUME 10.2 fL (7.2-11.7); MONO # 0.9 K/uL (0.0-0.8); NRBC % 0.1 % (0.0-2.0); RBC 3.57 Mil/uL (3.80-5.20); WHITE BLOOD COUNT 5.9 K/uL (4.8-10.8)
[2018-04-29] MEDS: (Novolin R) Insulin Human Regular 100 units/ml vial SC SCH (08:31)
[2018-04-29 08:35] LABS: ALB/GLOB RATIO 1.1 (1.0-2.1); ALBUMIN 3.7 g/dL (3.5-5.0); ALT/SGPT 20 U/L (9-52); AST/SGOT 22 U/L (14-36); BLOOD UREA NITROGEN 14 mg/dL (7-17); CALCIUM 8.7 mg/dl (8.6-10.4); GFR AFRICAN-AMERICAN > 60; GFR NON-AFRICAN AMERICAN > 60
[2018-04-29] MEDS: Fluticasone-Salmeterol 100-50mcg Diskus INH SCH (09:18)
[2018-04-29] MEDS: Pantoprazole 40 mg EC Tab PO SCH (10:49)
[2018-04-29] MEDS ORDERED: Bisacodyl 5mg EC Tab PO ONE (10:56)
[2018-04-29] MEDS ORDERED: (Novolin R) Insulin Human Regular 100 units/ml vial SC SCH (11:30)
--- NOTE | 2018-04-29 12:28 | CP.PCM.DIS ---
<Rudolph Cooleysswallace Mackey - Last Filed: 04/29/18 16:30> Provider - Provider Date of Admission: 04/28/18 13:54 Attending physician: Dave Menezes DO Time Spent in preparation of Discharge (in minutes): 40 Hospital Course - Lab Results Lab Results: Micro Results 04/27/18 23:06 Urine Urine Culture - Final No Growth (<1,000 CFU/ML) 04/25/18 17:30 Blood-Venous Blood Culture - Preliminary NO GROWTH AFTER 3 DAYS 04/25/18 16:45 Blood-Venous Blood Culture - Preliminary NO GROWTH AFTER 3 DAYS 04/25/18 14:06 Urine,Clean Catch Urine Culture - Final No Growth (<1,000 CFU/ML) Most Recent Lab Values WBC 5.9 K/uL (4.8-10.8) 04/29/18 07:51 RBC 3.57 Mil/uL (3.80-5.20) L 04/29/18 07:51 Hgb 9.9 g/dL (11.0-16.0) L 04/29/18 07:51 Hct 30.0 % (34.0-47.0) L 04/29/18 07:51 MCV 84.0 fL (81.0-99.0) 04/29/18 07:51 MCH 27.7 pg (27.0-31.0) 04/29/18 07:51 MCHC 33.0 g/dL (33.0-37.0) 04/29/18 07:51 RDW 14.0 % (11.5-14.5) 04/29/18 07:51 Plt Count 188 K/uL (130-400) 04/29/18 07:51 MPV 10.2 fL (7.2-11.7) 04/29/18 07:51 Neut % (Auto) 51.0 % (50.0-75.0) 04/29/18 07:51 Lymph % (Auto) 32.2 % (20.0-40.0) 04/29/18 07:51 [place] % (Auto) 15.0 % (0.0-10.0) H 04/29/18 07:51 Eos % (Auto) 1.5 % (0.0-4.0) 04/29/18 07:51 Baso % (Auto) 0.3 % (0.0-2.0) 04/29/18 07:51 Neut # (Auto) 3.0 K/uL (1.8-7.0) 04/29/18 07:51 Lymph # (Auto) 1.9 K/uL (1.0-4.3) 04/29/18 07:51 [place] # (Auto) 0.9 K/uL (0.0-0.8) H 04/29/18 07:51 Eos # (Auto) 0.1 K/uL (0.0-0.7) 04/29/18 07:51 Baso # (Auto) 0.0 K/uL (0.0-0.2) 04/29/18 07:51 PT 12.5 SECONDS (9.7-12.2) H 04/27/18 08:32 INR 1.1 04/27/18 08:32 APTT 35 SECONDS (21-34) H 04/27/18 08:32 Sodium 140 mmol/L (132-148) 04/29/18 07:51 Potassium 4.2 mmol/L (3.6-5.2) 04/29/18 07:51 Chloride 99 mmol/L (98-107) 04/29/18 07:51 Carbon Dioxide 33 mmol/L (22-30) H 04/29/18 07:51 Anion Gap 12 (10-20) 04/29/18 07:51 BUN 14 mg/dL (7-17) 04/29/18 07:51 Creatinine 0.6 mg/dL (0.7-1.2) L 04/29/18 07:51 Est GFR ( Amer) > 60 04/29/18 07:51 Est GFR (Non-Af Amer) > 60 04/29/18 07:51 POC Glucose (mg/dL) 137 mg/dL (65-110) H 04/28/18 20:58 Random Glucose 160 mg/dL (65-105) H 04/29/18 07:51 Hemoglobin A1c 6.8 % (4.2-6.5) H 04/26/18 08:02 Calcium 8.7 mg/dl (8.6-10.4) 04/29/18 07:51 Phosphorus 2.9 mg/dL (2.5-4.5) 04/29/18 07:51 Magnesium 1.6 mg/dL (1.6-2.3) 04/29/18 07:51 Total Bilirubin 0.5 mg/dL (0.2-1.3) 04/29/18 07:51 AST 22 U/L (14-36) 04/29/18 07:51 ALT 20 U/L (9-52) 04/29/18 07:51 Alkaline Phosphatase 54 U/L (38-126) 04/29/18 07:51 Total Creatine Kinase 34 U/L (30-135) 04/26/18 02:21 CK-MB (Mass) 0.37 ng/mL (0.0-3.38) 04/26/18 02:21 Troponin I < 0.0120 ng/mL (0.00-0.120) 04/26/18 02:21 Total Protein 6.9 g/dL (6.3-8.3) 04/29/18 07:51 Albumin 3.7 g/dL (3.5-5.0) 04/29/18 07:51 Globulin 3.2 gm/dL (2.2-3.9) 04/29/18 07:51 Albumin/Globulin Ratio 1.1 (1.0-2.1) 04/29/18 07:51 Triglycerides 169 mg/dL (0-149) H D 04/26/18 08:02 Cholesterol 178 mg/dL (0-199) 04/26/18 08:02 LDL Cholesterol Direct 113 mg/dL (0-129) 04/26/18 08:02 HDL Cholesterol 33 mg/dL (30-70) 04/26/18 08:02 Free T4 1.31 ng/dL (0.78-2.19) 04/26/18 08:02 TSH 3rd Generation 1.76 mIU/L (0.46-4.68) 04/26/18 08:02 Urine Color Carmen (YELLOW) 04/25/18 14:06 Urine Clarity Clear (Clear) 04/25/18 14:06 Urine pH 7.0 (5.0-8.0) 04/25/18 14:06 Ur Specific [place] 1.015 (1.003-1.030) 04/25/18 14:06 Urine Protein 2+ mg/dL (NEGATIVE) H 04/25/18 14:06 Urine Glucose (UA) Normal mg/dL (Normal) 04/25/18 14:06 Urine Ketones Negative mg/dL (NEGATIVE) 04/25/18 14:06 Urine Blood Negative (NEGATIVE) 04/25/18 14:06 Urine Nitrate Negative (NEGATIVE) 04/25/18 14:06 Urine Bilirubin Negative (NEGATIVE) 04/25/18 14:06 Urine Urobilinogen Normal mg/dL (0.2-1.0) 04/25/18 14:06 Ur Leukocyte Esterase Neg Ryan/uL (Negative) 04/25/18 14:06 Urine WBC (Auto) 1 /hpf (0-5) 04/25/18 14:06 Urine RBC (Auto) 1 /hpf (0-3) 04/25/18 14:06 Ur Squamous Epith Cells 1 /hpf (0-5) 04/25/18 14:06 - Hospital Course Hospital Course: Patient is a 57 year old female who presents to the ER for complaint of chest pain which started yesterday evening. She states the pain is in the center of her chest and radiates to right shoulder and right neck. She also admits to dyspnea associated with the chest pain. She states the pain is intermittent. She also admits to feeling dizzy, headache, and nausea. She states the chest pain is not pressure-like and is not reproducible on palpation. Patient was seen in the ER on 04/20/18 for complaint of suprapubic pain. Patient was discharged with macrobid, pyridium, and ultram. Urine culture is positive for E. coli, sensitive to meropenem CECE <= 0.25. Patient reports she has right flank pain that wraps around to her groin as well as dysuria and pruritus in her groin. She denies vaginal discharge or hematuria. PMD: Dr. Edwards Allergies: IV contrast dye- reaction is rash and pruritus PMHx: HTN, DM, HLD, asthma, right nephrolithiasis, pulmonary embolus right lung two years ago, gastritis PSHx: x2, appendectomy, surgery for nephrolithiasis Meds: advair diskus 100/50, ventolin as needed, trazodone 100mg PO HS, janumet 50-500 BID, xarelto 20mg daily, protonix 40mg daily, lexapro 20mg daily, colace 100mg BID, atorvastatin 20mg PO HS, xanax 1mg HS prn FamHx: mother with DM, aunt with breast cancer, grandmother with uterine cancer social Hx: never smoked, occasional alcohol use socially, no drugs, does not work Hospital Course: During patient's hospital course patient was found to have a positive urine culture for E. coli, best CECE of 0.25 is to meropenem. Infectious disease, Dr. Martinez was consulted. Patient continued to have right flank pain and CT of abdomen and pelvic demonstrated a right hydronephrosis. Urology, Dr. Kelli Echeverria was consulted. Dr. Echeverria performed a cysto right pyelogram/insertion of right ureteral stent 04/27/18. After procedure patient stated she felt significantly better. Patient's home medications were continued during her hospital stay. Patient is stable for discharge to rehab. Patient to continue Meropenem 1gm q8h from 04/25/18 to 05/04/18. Patient to follow up with Dr. Echeverria as an outpatient. This is a summary of the patient's hospital course. Refer to full EMR for a complete record. Discharge Exam - Head Exam Head Exam: ATRAUMATIC, NORMAL INSPECTION Discharge Plan - Discharge Medications Prescriptions: Meropenem IV 1 gm in NS [Merrem IV 1 gm Premix] 1 gm IVPB Q8H 5 Days bag - Follow Up Plan Condition: FAIR Disposition: HOME/ ROUTINE Instructions: Peripherally-Inserted Central Catheter, Urinary Tract Infection, Adult (DC), Flank Pain (DC), Chest Pain (DC) Additional Instructions: Continue meropenem 1gm in NS IVPB q8H for five days. Referrals: Kelli Echeverria MD [Staff Provider] - <Dave Menezes - Last Filed: 04/29/18 18:56> Provider - Provider Date of Admission: 04/28/18 13:54 Attending physician: Dave Menezes DO Hospital Course - Lab Results Lab Results: Micro Results 04/27/18 23:06 Urine Urine Culture - Final No Growth (<1,000 CFU/ML) 04/25/18 17:30 Blood-Venous Blood Culture - Preliminary NO GROWTH AFTER 3 DAYS 04/25/18 16:45 Blood-Venous Blood Culture - Preliminary NO GROWTH AFTER 3 DAYS 04/25/18 14:06 Urine,Clean Catch Urine Culture - Final No Growth (<1,000 CFU/ML) Most Recent Lab Values WBC 5.9 K/uL (4.8-10.8) 04/29/18 07:51 RBC 3.57 Mil/uL (3.80-5.20) L 04/29/18 07:51 Hgb 9.9 g/dL (11.0-16.0) L 04/29/18 07:51 Hct 30.0 % (34.0-47.0) L 04/29/18 07:51 MCV 84.0 fL (81.0-99.0) 04/29/18 07:51 MCH 27.7 pg (27.0-31.0) 04/29/18 07:51 MCHC 33.0 g/dL (33.0-37.0) 04/29/18 07:51 RDW 14.0 % (11.5-14.5) 04/29/18 07:51 Plt Count 188 K/uL (130-400) 04/29/18 07:51 MPV 10.2 fL (7.2-11.7) 04/29/18 07:51 Neut % (Auto) 51.0 % (50.0-75.0) 04/29/18 07:51 Lymph % (Auto) 32.2 % (20.0-40.0) 04/29/18 07:51 [place] % (Auto) 15.0 % (0.0-10.0) H 04/29/18 07:51 Eos % (Auto) 1.5 % (0.0-4.0) 04/29/18 07:51 Baso % (Auto) 0.3 % (0.0-2.0) 04/29/18 07:51 Neut # (Auto) 3.0 K/uL (1.8-7.0) 04/29/18 07:51 Lymph # (Auto) 1.9 K/uL (1.0-4.3) 04/29/18 07:51 [place] # (Auto) 0.9 K/uL (0.0-0.8) H 04/29/18 07:51 Eos # (Auto) 0.1 K/uL (0.0-0.7) 04/29/18 07:51 Baso # (Auto) 0.0 K/uL (0.0-0.2) 04/29/18 07:51 PT 12.5 SECONDS (9.7-12.2) H 04/27/18 08:32 INR 1.1 04/27/18 08:32 APTT 35 SECONDS (21-34) H 04/27/18 08:32 Sodium 140 mmol/L (132-148) 04/29/18 07:51 Potassium 4.2 mmol/L (3.6-5.2) 04/29/18 07:51 Chloride 99 mmol/L (98-107) 04/29/18 07:51 Carbon Dioxide 33 mmol/L (22-30) H 04/29/18 07:51 Anion Gap 12 (10-20) 04/29/18 07:51 BUN 14 mg/dL (7-17) 04/29/18 07:51 Creatinine 0.6 mg/dL (0.7-1.2) L 04/29/18 07:51 Est GFR ( Amer) > 60 04/29/18 07:51 Est GFR (Non-Af Amer) > 60 04/29/18 07:51 POC Glucose (mg/dL) 123 mg/dL (65-110) H 04/29/18 15:59 Random Glucose 160 mg/dL (65-105) H 04/29/18 07:51 Hemoglobin A1c 6.8 % (4.2-6.5) H 04/26/18 08:02 Calcium 8.7 mg/dl (8.6-10.4) 04/29/18 07:51 Phosphorus 2.9 mg/dL (2.5-4.5) 04/29/18 07:51 Magnesium 1.6 mg/dL (1.6-2.3) 04/29/18 07:51 Total Bilirubin 0.5 mg/dL (0.2-1.3) 04/29/18 07:51 AST 22 U/L (14-36) 04/29/18 07:51 ALT 20 U/L (9-52) 04/29/18 07:51 Alkaline Phosphatase 54 U/L (38-126) 04/29/18 07:51 Total Creatine Kinase 34 U/L (30-135) 04/26/18 02:21 CK-MB (Mass) 0.37 ng/mL (0.0-3.38) 04/26/18 02:21 Troponin I < 0.0120 ng/mL (0.00-0.120) 04/26/18 02:21 Total Protein 6.9 g/dL (6.3-8.3) 04/29/18 07:51 Albumin 3.7 g/dL (3.5-5.0) 04/29/18 07:51 Globulin 3.2 gm/dL (2.2-3.9) 04/29/18 07:51 Albumin/Globulin Ratio 1.1 (1.0-2.1) 04/29/18 07:51 Triglycerides 169 mg/dL (0-149) H D 04/26/18 08:02 Cholesterol 178 mg/dL (0-199) 04/26/18 08:02 LDL Cholesterol Direct 113 mg/dL (0-129) 04/26/18 08:02 HDL Cholesterol 33 mg/dL (30-70) 04/26/18 08:02 Free T4 1.31 ng/dL (0.78-2.19) 04/26/18 08:02 TSH 3rd Generation 1.76 mIU/L (0.46-4.68) 04/26/18 08:02 Urine Color [place] (YELLOW) 04/25/18 14:06 Urine Clarity Clear (Clear) 04/25/18 14:06 Urine pH 7.0 (5.0-8.0) 04/25/18 14:06 Ur Specific [place] 1.015 (1.003-1.030) 04/25/18 14:06 Urine Protein 2+ mg/dL (NEGATIVE) H 04/25/18 14:06 Urine Glucose (UA) Normal mg/dL (Normal) 04/25/18 14:06 Urine Ketones Negative mg/dL (NEGATIVE) 04/25/18 14:06 Urine Blood Negative (NEGATIVE) 04/25/18 14:06 Urine Nitrate Negative (NEGATIVE) 04/25/18 14:06 Urine Bilirubin Negative (NEGATIVE) 04/25/18 14:06 Urine Urobilinogen Normal mg/dL (0.2-1.0) 04/25/18 14:06 Ur Leukocyte Esterase Neg Ryan/uL (Negative) 04/25/18 14:06 Urine WBC (Auto) 1 /hpf (0-5) 04/25/18 14:06 Urine RBC (Auto) 1 /hpf (0-3) 04/25/18 14:06 Ur Squamous Epith Cells 1 /hpf (0-5) 04/25/18 14:06 Attending/Attestation - Attestation I have personally seen and examined this patient.: Yes I have fully participated in the care of the patient.: Yes I have reviewed all pertinent clinical information, including history, physical exam and plan: Yes Notes (Text): 04/29/18 18:53 Medical attending: Patient was seen and examined by me. Agree with the above note by the resident Because of the multi-drug resistances of the E coli bacteria that the patient had - ID was explaining that the patient needs to be on IV meropenom for an extended period of time. Dave Menezes
--- NOTE | 2018-04-29 12:28 | CARD ---
APPROVED REPORT EKG Measurement Heart [id number] <Conclusion> Normal sinus rhythm Incomplete right bundle branch block Borderline ECG
--- NOTE | 2018-04-29 12:29 | CARD ---
APPROVED REPORT EKG Measurement Heart [id number] [place] [id number] <Conclusion> Normal sinus rhythm Normal ECG
--- NOTE | 2018-04-29 16:52 | US ---
PROCEDURE: RIGHT UPPER EXTREMITY SOFT TISSUE ULTRASOUND HISTORY: swelling COMPARISON: NONE AVAILABLE TECHNIQUE: Grayscale and color doppler ultrasound of right wrist soft tissues and performed for evaluation of edema. FINDINGS: Images submitted demonstrate a PICC catheter within any superficial vein, either basilic or cephalic at the right upper extremity. A large abscess is not excluded surrounding this area several images demonstrated the PICC catheter within this structure color Doppler blood flow including power Doppler does not show complete blood flow through the vein in several images and therefore partial thrombosis is not excluded. IMPRESSION: Limited examination which fail demonstrate definite abscess or large fluid collection at the proximal right upper extremity. A PICC line is identified within into the basilic or cephalic veins though this could this could represent an aberrant brachial vein. Partial thrombosis of the veins not completely excluded.
--- NOTE | 2018-04-29 20:18 | OP ---
PROCEDURE DATE: 04/27/2018 PREOPERATIVE DIAGNOSES: Right hydronephrosis. Right flank pain. Urinary tract infection and history of urolithiasis. POSTOPERATIVE DIAGNOSES Right hydronephrosis. Right flank pain. Urinary tract infection and history of urolithiasis.. No stone identified. Cystitis. PROCEDURES: Cystoscopy. Right retrograde pyelogram. Insertion of right ureteral stent. Exam under anesthesia. OPERATING SURGEON: Kelli Echeverria MD DESCRIPTION OF PROCEDURE: Procedure as follows. The patient was placed in lithotomy position. Anesthesia was applied by the anesthesiologist. Procedure was performed under video endoscopic control as well as under fluoroscopic control. A 22-Romansh cystoscope sheath was introduced with obturator. Urine was sent for bacteriologic examination. Urethra and bladder inspected with 30 degree lens. FINDINGS: There was normal caliber urethra. There was no bladder neck contraction. There was no bladder tumor. There was no bladder stone. There was moderate inflammation of bladder mucosa. There was no bladder diverticulum. The trigone demonstrated mild inflammation. The ureteral orifices were normal position and shape. Occlusive tip right retrograde pyelogram was performed. Iodinated contrast instilled via cone-tip catheter and placed into the right ureteral orifice. The retrograde pyelogram demonstrated no evidence of filling defect or obstruction within the ureter. There was moderate hydronephrosis. There was dilation of a bifid pelvis and of the calyces. A 0.035-inch guidewire was inserted into the ureteral orifice, passed up to the level of the kidney. The 6-Romansh MultiLength Stent was inserted over the guidewire. Proper stent position was confirmed with fluoroscopy and endoscopy. The bladder was reinspected and confirmed above findings. The bladder was drained. Cystoscope sheath removed. Lidocaine jelly was instilled per urethra. Exam under anesthesia was performed. There was no abnormal pelvic mass fixation or induration. There was no adnexal mass. The patient tolerated the procedure without complication. The patient was returned to supine position. Kelli Echeverria MD
--- NOTE | 2018-04-30 09:34 | VASCLAB ---
PROCEDURE: Right Upper Extremity Venous Duplex Exam HISTORY: Swelling PRIORS: None. TECHNIQUE: Right upper extremity, internal jugular, subclavian, axillary, brachial, ulnar, radial, basilic and upper cephalic veins were evaluated. Flow was assessed with color Doppler, compressibility, assessment of phasic flow and augmentation response. Report prepared by JUSTIN Johns FINDINGS: RIGHT: 1. Internal Jugular: 1.1. Compressibility - Fully compressible: Thrombus - None : Flow - Phasic: Augmentation -Normal: Reflux - None. 2. Subclavian: 2.1. Compressibility - Fully compressible: Thrombus - None : Flow - Phasic: Augmentation -Normal: Reflux - None. 3. Axillary: 3.1. Compressibility - Fully compressible: Thrombus - None : Flow - Phasic: Augmentation -Normal: Reflux - None. 4. Brachial: (proximal only) 4.1. Compressibility - Fully compressible: Thrombus - None: Flow - Phasic: Augmentation -Normal: Reflux - None. 5. Ulnar: 5.1. Compressibility - Fully compressible: Thrombus - None: Flow - Phasic: Augmentation -Normal: Reflux - None. 6. Radial: 6.1. Compressibility - Fully compressible: Thrombus - None: Flow - Phasic: Augmentation - Normal: Reflux - None. 7. Cephalic: 7.1. Compressibility - Fully compressible: Thrombus - None: Flow - Phasic: Augmentation -Normal: Reflux - None. 8. Basilic: 8.1. Not visualized. OTHER FINDINGS: Right: Partially imaged PICC. IMPRESSION: Right: No evidence of vein thrombosis of the right upper extremity with excellent venous flow. Normal valve function noted of the right side. Normal venous flow noted in the left internal jugular and left subclavian veins.
== END 2018-04-29 16:13 | disposition home or self-care (01) | DRG 694 ==
LOC: C.ER 13:22 → C.9E 15:07 → C.5S 04-26 01:50 → OBSVTOIN 04-28 13:54
PROVIDERS: ADMIT Hospitalist; ATTEND Hospitalist
PROC: 0T768DZ Dilation of Right Ureter with Intraluminal Device, Via Natural or Artificial Opening Endoscopic (ICD-10-PCS; principal; 2018-04-29)
PROC: BT1D1ZZ Fluoroscopy of Right Kidney, Ureter and Bladder using Low Osmolar Contrast (ICD-10-PCS; 2018-04-29)
DX: N13.2 Hydronephrosis with renal and ureteral calculous obstruction (principal); N13.6 Pyonephrosis; N39.0 Urinary tract infection, site not specified; L29.9 Pruritus, unspecified; N20.0 Calculus of kidney; K31.84 Gastroparesis; J44.9 Chronic obstructive pulmonary disease, unspecified; I12.9 Hypertensive chronic kidney disease with stage 1 through stage 4 chronic kidney disease, or unspecified chronic kidney disease; N18.9 Chronic kidney disease, unspecified; E78.00 Pure hypercholesterolemia, unspecified; B96.20 Unspecified Escherichia coli [E. coli] as the cause of diseases classified elsewhere; E11.43 Type 2 diabetes mellitus with diabetic autonomic (poly)neuropathy; E11.22 Type 2 diabetes mellitus with diabetic chronic kidney disease; F32.9 Major depressive disorder, single episode, unspecified; E78.5 Hyperlipidemia, unspecified; K29.70 Gastritis, unspecified, without bleeding; Z86.711 Personal history of pulmonary embolism; Z79.01 Long term (current) use of anticoagulants; Z87.440 Personal history of urinary (tract) infections; Z87.442 Personal history of urinary calculi; Z90.49 Acquired absence of other specified parts of digestive tract; Z79.82 Long term (current) use of aspirin; Z16.24 Resistance to multiple antibiotics; Z98.41 Cataract extraction status, right eye

== ENCOUNTER 2018-05-24 17:26 | Emergency (ER) | payer MEDICARE ==
[2018-05-24 17:28] VITALS: BMI 313171.9
[2018-05-24 17:36] VITALS: RESP 18; O2SAT 97
--- NOTE | 2018-05-24 18:54 | RAD ---
PROCEDURE: CHEST RADIOGRAPH, 1 VIEW HISTORY: chest pain COMPARISON: Chest radiograph dated 04/18/2018. FINDINGS: LUNGS: Clear. PLEURA: No pneumothorax or pleural fluid seen. CARDIOVASCULAR: Atherosclerotic aortic calcifications. Cardiomediastinal silhouette within normal limits. OSSEOUS STRUCTURES: Unchanged. VISUALIZED UPPER ABDOMEN: Normal. OTHER FINDINGS: None. IMPRESSION: No active disease.
[2018-05-24 19:14] LABS: BASO # 0.1 K/uL (0.0-0.2); BASO % 0.8 % (0.0-2.0); EOS # 0.1 K/uL (0.0-0.7); HEMOGLOBIN 11.6 g/dL (11.0-16.0); LYMPH # 2.6 K/uL (1.0-4.3); LYMPH % 40.4 % (20.0-40.0); MEAN CELL VOLUME 83.1 fL (81.0-99.0); MEAN CORPUSCULAR HEMOGLOBIN 27.2 pg (27.0-31.0); MEAN CORPUSCULAR HGB CONC 32.8 g/dL (33.0-37.0); MEAN PLATELET VOLUME 9.3 fL (7.2-11.7); MONO # 0.8 K/uL (0.0-0.8); MONO % 11.8 % (0.0-10.0); NEUT # 2.9 K/uL (1.8-7.0); RBC 4.24 Mil/uL (3.80-5.20); RED CELL DISTRIBUTION WIDTH 14.5 % (11.5-14.5); WHITE BLOOD COUNT 6.4 K/uL (4.8-10.8)
[2018-05-24 19:20] LABS: INR 1.1; PROTHROMBIN TIME 11.5 SECONDS (9.7-12.2)
[2018-05-24 19:39] LABS: ALB/GLOB RATIO 1.2 (1.0-2.1); ALBUMIN 4.2 g/dL (3.5-5.0); ALT/SGPT 23 U/L (9-52); AST/SGOT 24 U/L (14-36); BLOOD UREA NITROGEN 9 mg/dL (7-17); CALCIUM 9.3 mg/dl (8.6-10.4); GFR AFRICAN-AMERICAN > 60; GFR NON-AFRICAN AMERICAN > 60; LIPASE 80 U/L (23-300)
--- NOTE | 2018-05-24 19:47 | C.PDOC ---
History Of Present Illness 57-year-old female, PMHx includes psychiatric Hx, diabetes, on Xarelto for PE, presents to the emergency department with complaints of chest pain. Patient states she was at her psych appointment, and started having mid-sternal pain, resulting in her being sent to ED for evaluation. Denies nausea/vomiting, shortness of breath, or any other associated symptoms. No other complaints at this time. Time Seen by Provider: 05/24/18 18:22 Chief Complaint (Nursing): Chest Pain History Per: Patient History/Exam Limitations: no limitations Current Symptoms Are (Timing): Still Present Severity: Moderate Past Medical History Reviewed: Historical Data, Nursing Documentation, Vital Signs Vital Signs: Last Vital Signs Temp 98.6 F 05/24/18 19:48 Pulse 79 05/24/18 19:48 Resp 18 05/24/18 19:48 BP 105/73 05/24/18 19:48 Pulse Ox 97 05/24/18 19:48 - Medical History PMH: Anxiety, Arthritis, Asthma, Depression, Diabetes, Gastritis, HTN, Hypercholesterolemia, Kidney Stones, Migraine, Pulmonary Embolism, Chronic Kidney Disease Surgical History: Appendectomy, Endoscopy - [facility] Procedures CYSTOSCOPY NEC (08/09/01) DILATION OF RIGHT URETER WITH INTRALUMINAL DEVICE, ENDO (04/28/18) FLUOROSCOPY KIDNEY, URETER, BLADDER, R W L OSM CONTRAST (04/28/18) INJECT/INFUSE ELECTROLYT (04/12/12) INJECT/INFUSE NEC (04/12/12) INSERT INDWELLING CATH (06/15/13) OTHER ENDOSCOPY OF SM INTEST (07/16/12) URETERAL CATHETERIZATION (08/09/01) Family History: States: No Known Family Hx - Social History Hx Tobacco Use: No Hx Alcohol Use: No Hx Substance Use: No - Immunization History Hx Tetanus Toxoid Vaccination: No Hx Influenza Vaccination: No Hx Pneumococcal Vaccination: No Review Of Systems Constitutional: Negative for: Fever, Chills Cardiovascular: Positive for: Chest Pain. Negative for: Palpitations Respiratory: Negative for: Shortness of Breath Gastrointestinal: Negative for: Nausea, Vomiting Musculoskeletal: Negative for: Back Pain Skin: Negative for: Rash Neurological: Negative for: Weakness, Numbness, Headache, Dizziness Physical Exam - Physical Exam Appears: Non-toxic, No Acute Distress Skin: Normal Color, Warm, Dry Head: Atraumatic, Normacephalic Eye(s): bilateral: Normal Inspection, PERRL, EOMI Nose: Normal Oral Mucosa: Moist Lips: Normal Appearing Neck: Normal ROM Cardiovascular: Rhythm Regular, No Murmur Respiratory: Normal Breath Sounds, No Accessory Muscle Use Gastrointestinal/Abdominal: Soft, No Tenderness Extremity: Normal ROM, No Deformity Neurological/Psych: Oriented x3, Normal Speech ED Course And Treatment - Laboratory Results Result Diagrams: 05/24/18 19:10 05/24/18 19:10 ECG: Interpreted By Me, Viewed By Me ECG Rhythm: Sinus Rhythm ECG Interpretation: No Acute Changes Rate From EC O2 Sat by Pulse Oximetry: 97 (RA) Pulse Ox Interpretation: Normal Medical Decision Making Medical Decision Making: cp r/o acs - h/o of pe, complaint with xarelto labs neg. cxr neg. pt asking for food. cp <6 hour. request serial trop. pt refuses signs ama. understands risks. explained extensively. Disposition - Disposition Referrals: Frank Field MD [Staff Provider] - Disposition: AGAINST MEDICAL ADVICE Disposition Time: 07:00 Condition: UNKNOWN Additional Instructions: follow up with specialist. return to er with worsening symptoms or concerns. Instructions: Chest Pain, Leaving Against Medical Advice Forms: [facility] ([place]) Print Language: CHINESE - Clinical Impression Clinical Impression: Chest pain - Scribe Statement The provider has reviewed the documentation as recorded by the Scribe (Jada Escobedo) All medical record entries made by the Scribe were at my direction and personally dictated by me. I have reviewed the chart and agree that the record accurately reflects my personal performance of the history, physical exam, medical decision making, and the department course for this patient. I have also personally directed, reviewed, and agree with the discharge instructions and disposition.
[2018-05-24 19:56] VITALS: BP 105/73; PULSE 79; TEMP 98.6
--- NOTE | 2018-05-26 01:04 | CARD ---
APPROVED REPORT Date of service: 05/24/2018 EKG Measurement Heart [id number] <Conclusion> Normal sinus rhythm Normal ECG
== END 2018-05-24 20:04 | disposition left against medical advice (07) ==
LOC: C.ER 17:26
DX: R07.9 Chest pain, unspecified (principal); I12.9 Hypertensive chronic kidney disease with stage 1 through stage 4 chronic kidney disease, or unspecified chronic kidney disease; E11.22 Type 2 diabetes mellitus with diabetic chronic kidney disease; N18.9 Chronic kidney disease, unspecified; E78.00 Pure hypercholesterolemia, unspecified; Z86.711 Personal history of pulmonary embolism

== ENCOUNTER 2018-07-01 13:09 | Emergency (ER) | payer MEDICARE ==
[2018-07-01 13:09] VITALS: BMI 313171.9
[2018-07-01] MEDS ORDERED: Sodium Chloride 0.9% 1,000 ML IV STA (13:42)
[2018-07-01] MEDS ORDERED: Sodium Chloride 0.9% 1,000 ML ONE (13:59)
--- NOTE | 2018-07-01 14:00 | C.PDOC ---
History Of Present Illness 57 y/o female presents to the ER complaining of right flank pain x 3 days and RLQ pain which began last night. Patient states that she has associated nausea, vomiting, dysuria, and chills. Denies having fever and hematuria. Patient notes that she has history of kidney stones and she has stent in her right kidney. Time Seen by Provider: 07/01/18 13:36 Chief Complaint (Nursing): Abdominal Pain History Per: Patient History/Exam Limitations: no limitations Onset/Duration Of Symptoms: Days Current Symptoms Are (Timing): Still Present Severity: Moderate Past Medical History Reviewed: Historical Data, Nursing Documentation, Vital Signs Vital Signs: Last Vital Signs Temp 98.7 F 07/01/18 18:07 Pulse 68 07/01/18 18:07 Resp 18 07/01/18 18:07 BP 128/72 07/01/18 18:07 Pulse Ox 95 07/01/18 18:13 - Medical History PMH: Anxiety, Arthritis, Asthma, Depression, Diabetes, Gastritis, HTN, Hypercholesterolemia, Kidney Stones, Migraine, Pulmonary Embolism, Chronic Kidney Disease Surgical History: Appendectomy, Endoscopy - [facility] Procedures CYSTOSCOPY NEC (08/09/01) DILATION OF RIGHT URETER WITH INTRALUMINAL DEVICE, ENDO (04/28/18) FLUOROSCOPY KIDNEY, URETER, BLADDER, R W L OSM CONTRAST (04/28/18) INJECT/INFUSE ELECTROLYT (04/12/12) INJECT/INFUSE NEC (04/12/12) INSERT INDWELLING CATH (06/15/13) OTHER ENDOSCOPY OF SM INTEST (07/16/12) URETERAL CATHETERIZATION (08/09/01) Family History: States: No Known Family Hx - Social History Hx Tobacco Use: No Hx Alcohol Use: No Hx Substance Use: No - Immunization History Hx Tetanus Toxoid Vaccination: No Hx Influenza Vaccination: No Hx Pneumococcal Vaccination: No Review Of Systems Except As Marked, All Systems Reviewed And Found Negative. Constitutional: Positive for: Chills. Negative for: Fever Gastrointestinal: Positive for: Nausea, Vomiting, Abdominal Pain. Negative for : Diarrhea Genitourinary: Positive for: Dysuria. Negative for: Hematuria Physical Exam - Physical Exam Appears: Non-toxic, No Acute Distress Skin: Normal Color, Warm, Dry Head: Atraumatic, Normacephalic Eye(s): bilateral: Normal Inspection Nose: Normal Oral Mucosa: Moist Neck: Supple Chest: Symmetrical Cardiovascular: Rhythm Regular Respiratory: Normal Breath Sounds, No Rales, No Rhonchi, No Wheezing Gastrointestinal/Abdominal: Soft, Tenderness (right flank and RLQ tenderness), No Guarding, No Rebound Neurological/Psych: Oriented x3, Normal Speech ED Course And Treatment - Laboratory Results Result Diagrams: 07/01/18 14:08 07/01/18 14:08 O2 Sat by Pulse Oximetry: 95 (RA) Pulse Ox Interpretation: Normal - CT Scan/US Abd/pelvis Other Rad Studies (CT/US): Read By Radiologist CT/US Interpretation: Date of service: 07/01/2018. PROCEDURE: CT abdomen pelvis. HISTORY: Stone protocol. COMPARISON: None. TECHNIQUE: Contiguous helical/transaxial sections of the abdomen pelvis performed without oral or intravenous contrast material. Additional 2D sagittal and coronal reformats generated. Radiation dose: Total exam DLP = 938.5 mGy-cm. This CT exam was performed using one or more of the following dose reduction techniques: Automated exposure control, adjustment of the mA and/or kV according to patient size, and/or use of iterative reconstruction technique. CT scan abdomen pelvis. FINDINGS: LOWER THORAX: Heart size within range of normal. No significant pericardial effusion. Tiny hiatal hernia. Very minor on atelectasis and or scarring changes both lung bases. LIVER: Liver is upper limits of normal measuring nearly 18 cm in in CC dimension. No obvious hepatic mass collection or calcification. Dilatation. GALLBLADDER AND BILE DUCTS: Gallbladder is incompletely distended. No obvious intraluminal gallbladder calculi. PANCREAS: Pancreas is mildly atrophic and fatty replaced. SPLEEN: Unremarkable. No splenomegaly. ADRENALS: No adrenal lesions. KIDNEYS AND URETERS: There is an in situ right ureteral stent which appears to be in good position. The right kidney is diminutive demonstrating cortical volume loss - scarring and infiltration changes in the right renal hilar region. . Findings suggest sequela of chronic inflammation or infection. The tiny non obstructing calcification seen upper pole cortex right kidney. . The ureter does not appear significantly dilated. No evidence of left-sided nephrolithiasis or hydronephrosis. Minimal infiltration changes left perinephric fat. BLADDER: Urinary bladder appears incompletely distended which in part accounts for thick- walled appearance. Correlation urinalysis to exclude cystitis -UTI. REPRODUCTIVE: Unremarkable. APPENDIX: Appendix is not seen with complete certainty. No obvious inflammatory changes right lower quadrant of the abdomen. BOWEL: Evaluation of the bowel is somewhat limited due to the lack of oral contrast material. Stomach is collapsed. Visualized loops of small bowel exhibit normal contour and caliber. No evidence of acute mechanical small bowel obstruction. Moderately large amount of the stool is present within the cecum and ascending colon and to a slightly lesser degree transverse colon consistent with fecal retention/ constipation. PERITONEUM: Unremarkable. No fluid collection. No free air. There is mild localized diastases of the anterior abdominal wall. LYMPH NODES: Unremarkable. No enlarged lymph nodes. VASCULATURE: Unremarkable. No aortic aneurysm. BONES: Mild multilevel degenerative spondylosis of the lower thoracic and lumbar spine. There are no acute compression fractures no retropulsed fragments. OTHER FINDINGS: None. IMPRESSION: In situ right ureteral stent. The right kidney is diminutive exhibiting cortical volume last/cortical scarring. There are infiltration changes seen in the right renal hilar region. Findings suggest a sequela of chronic inflammation/infection. The right ureter does not appear significantly dilated. Urinary bladder is incompletely distended which may in part account for thick-walled appearance however correlation with urinalysis recommended to exclude cystitis/UTI. Findings consistent with mild constipation. See above discussion for additional details and findings. Medical Decision Making Medical Decision Making: Plan: --Labs --UA --Toradol IM --Tylenol PO --IV Fluids Patient given 1L NS bolus and 30mg toradol ivp. Labs done, unremarkable except for hematuria. No UTI noted. CT abd/pelvis without contrast done for evaluate for renal stone, which was negative. On re-eval, patient does complain of continued pain, so 4mg morphine ivp given. On further re-eval patient laying comfortably in stretcher talking on the phone with no complaints. Results discussed with patient, advised following up with PMD and with urology. Patient verbalizes understanding. Stable for discharge home. Disposition - Disposition Disposition: HOME/ ROUTINE Disposition Time: 18:07 Condition: GOOD Additional Instructions: HILARIO WILKINSON, thank you for letting us take care of you today. Your provider was Nilsa Damon MD and you were treated for RT SIDE PAIN. The emergency medical care you received today was directed at your acute symptoms. If you were prescribed any medication, please fill it and take as directed. It may take several days for your symptoms to resolve. Return to the Emergency Department if your symptoms worsen, do not improve, or if you have any other problems. Please contact your doctor or call one of the physicians/clinics you have been referred to that are listed on the Patient Visit Information form that is included in your discharge packet. Bring any paperwork you were given at discharge with you along with any medications you are taking to your follow up visit. Our treatment cannot replace ongoing medical care by a primary care provider outside of the emergency department. Thank you for allowing the [facility] team to be part of your care today. If you had an X-Ray or CT scan: A Radiologist will review the ED reading if any change in treatment is needed we will contact you. If you had a blood, urine, or wound culture: It will take several days for the results, if any change in treatment is needed we will contact you. If you had an STI test: It will take 48 hours for the results. Please call after 1 week if you have not heard back. Instructions: Flank Pain (DC) Forms: [employer] (Serbian) Print Language: KINYARWANDA - Clinical Impression Clinical Impression: Right flank pain - Scribe Statement The provider has reviewed the documentation as recorded by the Vincent Giraldo Provider Attestation: All medical record entries made by the Vincent were at my direction and personally dictated by me. I have reviewed the chart and agree that the record accurately reflects my personal performance of the history, physical exam, medical decision making, and the department course for this patient. I have also personally directed, reviewed, and agree with the discharge instructions and disposition.
[2018-07-01 14:13] LABS: BASO % 0.5 % (0.0-2.0); EOS % 0.4 % (0.0-4.0); HEMOGLOBIN 11.5 g/dL (11.0-16.0); LYMPH # 1.9 K/uL (1.0-4.3); LYMPH % 31.7 % (20.0-40.0); MEAN CELL VOLUME 82.5 fL (81.0-99.0); MEAN CORPUSCULAR HEMOGLOBIN 27.6 pg (27.0-31.0); MEAN CORPUSCULAR HGB CONC 33.4 g/dL (33.0-37.0); MEAN PLATELET VOLUME 9.6 fL (7.2-11.7); MONO # 0.7 K/uL (0.0-0.8); MONO % 11.9 % (0.0-10.0); NEUT # 3.3 K/uL (1.8-7.0); NEUT % 55.5 % (50.0-75.0); RBC 4.16 Mil/uL (3.80-5.20); RED CELL DISTRIBUTION WIDTH 14.8 % (11.5-14.5); WHITE BLOOD COUNT 5.9 K/uL (4.8-10.8)
[2018-07-01 14:25] LABS: SQUAMOUS EPITHIAL 4 /hpf (0-5); URINE BACTERIA RARE (<OCC); URINE BILIRUBIN NEGATIVE (NEGATIVE); URINE BLOOD 3+ (NEGATIVE); URINE CLARITY Hazy (Clear); URINE COLOR Yellow (YELLOW); URINE GLUCOSE (UA) NORMAL (Normal); URINE LEUKOCYTE ESTERASE NEG Leu/uL (Negative); URINE PROTEIN 2+ mg/dL (NEGATIVE); URINE UROBILINOGEN NORMAL mg/dL (0.2-1.0)
[2018-07-01 14:26] LABS: ALB/GLOB RATIO 1.2 (1.0-2.1); ALBUMIN 4.2 g/dL (3.5-5.0); ALT/SGPT 21 U/L (9-52); AST/SGOT 18 U/L (14-36); BLOOD UREA NITROGEN 13 mg/dL (7-17); CALCIUM 9.6 mg/dl (8.6-10.4); GFR AFRICAN-AMERICAN > 60; GFR NON-AFRICAN AMERICAN > 60
[2018-07-01] MEDS ORDERED: Morphine 4 MG/ML VIAL IV ONE (17:02)
[2018-07-01] MEDS ORDERED: Morphine 4 MG/ML VIAL ONE (17:08)
--- NOTE | 2018-07-01 17:25 | CT ---
Date of service: 07/01/2018 PROCEDURE: CT abdomen pelvis. HISTORY: Stone protocol. COMPARISON: None. TECHNIQUE: Contiguous helical/transaxial sections of the abdomen pelvis performed without oral or intravenous contrast material. Additional 2D sagittal and coronal reformats generated. Radiation dose: Total exam DLP = 938.5 mGy-cm. This CT exam was performed using one or more of the following dose reduction techniques: Automated exposure control, adjustment of the mA and/or kV according to patient size, and/or use of iterative reconstruction technique. CT scan abdomen pelvis FINDINGS: LOWER THORAX: Heart size within range of normal. No significant pericardial effusion. Tiny hiatal hernia. Very minor on atelectasis and or scarring changes both lung bases. LIVER: Liver is upper limits of normal measuring nearly 18 cm in in CC dimension. No obvious hepatic mass collection or calcification. Dilatation. GALLBLADDER AND BILE DUCTS: Gallbladder is incompletely distended. No obvious intraluminal gallbladder calculi. PANCREAS: Pancreas is mildly atrophic and fatty replaced. SPLEEN: Unremarkable. No splenomegaly. ADRENALS: No adrenal lesions. KIDNEYS AND URETERS: There is an in situ right ureteral stent which appears to be in good position. The right kidney is diminutive demonstrating cortical volume loss -scarring and infiltration changes in the right renal hilar region. . Findings suggest sequela of chronic inflammation or infection. The tiny non obstructing calcification seen upper pole cortex right kidney. . The ureter does not appear significantly dilated. No evidence of left-sided nephrolithiasis or hydronephrosis. Minimal infiltration changes left perinephric fat. BLADDER: Urinary bladder appears incompletely distended which in part accounts for thick-walled appearance. Correlation urinalysis to exclude cystitis -UTI. REPRODUCTIVE: Unremarkable. APPENDIX: Appendix is not seen with complete certainty. No obvious inflammatory changes right lower quadrant of the abdomen. BOWEL: Evaluation of the bowel is somewhat limited due to the lack of oral contrast material. Stomach is collapsed. Visualized loops of small bowel exhibit normal contour and caliber. No evidence of acute mechanical small bowel obstruction. Moderately large amount of the stool is present within the cecum and ascending colon and to a slightly lesser degree transverse colon consistent with fecal retention/ constipation. PERITONEUM: Unremarkable. No fluid collection. No free air. There is mild localized diastases of the anterior abdominal wall. LYMPH NODES: Unremarkable. No enlarged lymph nodes. VASCULATURE: Unremarkable. No aortic aneurysm. BONES: Mild multilevel degenerative spondylosis of the lower thoracic and lumbar spine. There are no acute compression fractures no retropulsed fragments. OTHER FINDINGS: None. IMPRESSION: In situ right ureteral stent. The right kidney is diminutive exhibiting cortical volume last/cortical scarring. There are infiltration changes seen in the right renal hilar region. Findings suggest a sequela of chronic inflammation/infection. The right ureter does not appear significantly dilated. Urinary bladder is incompletely distended which may in part account for thick-walled appearance however correlation with urinalysis recommended to exclude cystitis/UTI. Findings consistent with mild constipation. See above discussion for additional details and findings.
[2018-07-01 18:09] VITALS: BP 128/72; PULSE 68; RESP 18; TEMP 98.7
[2018-07-01 18:13] VITALS: O2SAT 95
== END 2018-07-01 18:16 | disposition home or self-care (01) ==
LOC: C.ER 13:09
DX: R10.31 Right lower quadrant pain (principal)
CPT/HCPCS: 74176; 80053; 81001; 85025; 87086; 96361; 96372; 96374; 96375; 99285; J1885; J2270; J2405; J7030

== ENCOUNTER 2018-11-13 15:24 | Emergency (ER) | payer MEDICARE ==
[2018-11-13 15:25] VITALS: BMI 313171.9
[2018-11-13 15:39] VITALS: RESP 18
[2018-11-13 16:41] LABS: BASO % 0.7 % (0.0-2.0); EOS % 0.2 % (0.0-4.0); HEMOGLOBIN 10.8 g/dL (11.0-16.0); LYMPH # 2.2 K/uL (1.0-4.3); LYMPH % 30.8 % (20.0-40.0); MEAN CORPUSCULAR HEMOGLOBIN 26.4 pg (27.0-31.0); MEAN CORPUSCULAR HGB CONC 31.8 g/dL (33.0-37.0); MEAN PLATELET VOLUME 9.3 fL (7.2-11.7); MONO # 1.1 K/uL (0.0-0.8); MONO % 14.8 % (0.0-10.0); NEUT # 3.8 K/uL (1.8-7.0); NEUT % 53.5 % (50.0-75.0); RBC 4.11 Mil/uL (3.80-5.20); RED CELL DISTRIBUTION WIDTH 14.7 % (11.5-14.5); WHITE BLOOD COUNT 7.1 K/uL (4.8-10.8)
[2018-11-13 16:53] LABS: BLOOD UREA NITROGEN 14 mg/dL (7-17); CALCIUM 9.1 mg/dl (8.6-10.4); GFR NON-AFRICAN AMERICAN > 60
--- NOTE | 2018-11-13 16:58 | RAD ---
Date of service: 11/13/2018 HISTORY: chest pain COMPARISON: 05/24/2018. FINDINGS: LUNGS: The lungs are well inflated and clear. PLEURA: No pleural effusions or pneumothorax. CARDIOVASCULAR: The heart is normal in size. No aortic atherosclerotic calcification present. OSSEOUS STRUCTURES: Within normal limits for the patient's age. VISUALIZED UPPER ABDOMEN: Normal. OTHER FINDINGS: None. IMPRESSION: No active pulmonary disease.
--- NOTE | 2018-11-13 17:41 | C.PDOC ---
History Of Present Illness 58 year old female presents to the emergency department with complaints of mid- sternal chest pain since 11:30AM today, associated with pain in her left-sided face, left arm, and left leg. Patient reports dizziness while walking and mild diarrhea, but denies shortness of breath, syncope, headache, fever, nausea, and vomiting. Time Seen by Provider: 11/13/18 16:12 Chief Complaint (Nursing): Chest Pain History Per: Patient History/Exam Limitations: no limitations Onset/Duration Of Symptoms: Hrs (6) Current Symptoms Are (Timing): Still Present Quality: "Pain" Associated Symptoms: denies: Nausea, Dyspnea, Diaphoresis, Syncope Past Medical History Reviewed: Historical Data, Nursing Documentation, Vital Signs Vital Signs: Last Vital Signs Temp 98.2 F 11/13/18 15:38 Pulse 84 11/13/18 15:38 Resp 18 11/13/18 15:38 BP 123/82 11/13/18 15:38 Pulse Ox 99 11/13/18 15:38 - Medical History PMH: Anxiety, Arthritis, Asthma, Depression, Diabetes, Gastritis, HTN, Hypercholesterolemia, Kidney Stones, Migraine, Pulmonary Embolism, Chronic Kidney Disease Surgical History: Appendectomy, Endoscopy - [facility] Procedures CYSTOSCOPY NEC (08/09/01) DILATION OF RIGHT URETER WITH INTRALUMINAL DEVICE, ENDO (04/28/18) FLUOROSCOPY KIDNEY, URETER, BLADDER, R W L OSM CONTRAST (04/28/18) INJECT/INFUSE ELECTROLYT (04/12/12) INJECT/INFUSE NEC (04/12/12) INSERT INDWELLING CATH (06/15/13) OTHER ENDOSCOPY OF SM INTEST (07/16/12) URETERAL CATHETERIZATION (08/09/01) Family History: States: No Known Family Hx - Social History Hx Tobacco Use: No Hx Alcohol Use: No Hx Substance Use: No - Immunization History Hx Tetanus Toxoid Vaccination: No Hx Influenza Vaccination: No Hx Pneumococcal Vaccination: No Review Of Systems Constitutional: Negative for: Fever Cardiovascular: Positive for: Chest Pain Gastrointestinal: Negative for: Nausea, Vomiting, Abdominal Pain, Diarrhea Musculoskeletal: Positive for: Arm Pain (left), Leg Pain (left) Neurological: Negative for: Headache Physical Exam - Physical Exam Appears: Well, Non-toxic, No Acute Distress Skin: Normal Color, Warm, Dry Head: Atraumatic, Normacephalic Eye(s): bilateral: Normal Inspection, PERRL, EOMI Nose: Normal Oral Mucosa: Moist Neck: Normal, Supple Chest: Symmetrical, No Tenderness Cardiovascular: Rhythm Regular, No Murmur Respiratory: Normal Breath Sounds, No Rales, No Rhonchi, No Wheezing Gastrointestinal/Abdominal: Soft, No Tenderness, No Guarding, No Rebound Extremity: Normal ROM Neurological/Psych: Oriented x3, Normal Speech ED Course And Treatment - Laboratory Results Result Diagrams: 11/13/18 16:38 11/13/18 16:38 O2 Sat by Pulse Oximetry: 99 (RA) Pulse Ox Interpretation: Normal - Other Rad CXR X-Ray: Viewed By Me, Read By Radiologist Interpretation: IMPRESSION: No active pulmonary disease. Medical Decision Making Medical Decision Making: Plan: EKG Chemistry Bloodwork CXR Toradol 30mg IVP On re-eval, patient reports that her chest pain has resolved, but that she still feels dizzy. 1L NS bolus and 12.5mg PO meclizine given. Imaging, lab, and EKG results discussed with patient. On further re-eval, patient states that she feels better and would like to go home. Rx written for meclizine, and patient advised to follow up with her PMD. Return to the ED for any new or worsening symptoms. Disposition - Disposition Disposition: HOME/ ROUTINE Disposition Time: 18:47 Condition: STABLE Additional Instructions: HILARIO WILKINSON, thank you for letting us take care of you today. Your provider was Nilsa Damon MD and you were treated for CHEST PAIN/LEFT ARM/HEADACHE. The emergency medical care you received today was directed at your acute symptoms. If you were prescribed any medication, please fill it and take as directed. It may take several days for your symptoms to resolve. Return to the Emergency Department if your symptoms worsen, do not improve, or if you have any other problems. Please contact your doctor or call one of the physicians/clinics you have been referred to that are listed on the Patient Visit Information form that is included in your discharge packet. Bring any paperwork you were given at discharge with you along with any medications you are taking to your follow up visit. Our treatment cannot replace ongoing medical care by a primary care provider outside of the emergency department. Thank you for allowing the [facility] team to be part of your care today. If you had an X-Ray or CT scan: A Radiologist will review the ED reading if any change in treatment is needed we will contact you. If you had a blood, urine, or wound culture: It will take several days for the results, if any change in treatment is needed we will contact you. If you had an STI test: It will take 48 hours for the results. Please call after 1 week if you have not heard back. Prescriptions: RX: Meclizine [Antivert] 12.5 mg PO TID #10 tab Instructions: Vertigo (a Type of Dizziness) (DC), Chest Pain (DC) Forms: [employer] (K[place]akh) - Clinical Impression Clinical Impression: Chest pain, Vertigo - Scribe Statement The provider has reviewed the documentation as recorded by the Scribe (Giovany Cheng) Provider Attestation: All medical record entries made by the Scribe were at my direction and personally dictated by me. I have reviewed the chart and agree that the record accurately reflects my personal performance of the history, physical exam, me dical decision making, and the department course for this patient. I have also personally directed, reviewed, and agree with the discharge instructions and disposition.
[2018-11-13] MEDS ORDERED: Sodium Chloride 0.9% 1,000 ML IV ONE (17:52)
[2018-11-13] MEDS ORDERED: Sodium Chloride 0.9% 1,000 ML ONE (18:05)
[2018-11-13 18:40] VITALS: BP 118/80; PULSE 74; TEMP 98.7
[2018-11-13 22:55] VITALS: O2SAT 99
--- NOTE | 2018-11-15 13:27 | CARD ---
APPROVED REPORT Date of service: 11/13/2018 EKG Measurement Heart [id number] <Conclusion> Normal sinus rhythm Normal ECG
== END 2018-11-13 18:58 | disposition home or self-care (01) ==
LOC: C.ER 15:24
DX: R07.9 Chest pain, unspecified (principal); R42 Dizziness and giddiness; I12.9 Hypertensive chronic kidney disease with stage 1 through stage 4 chronic kidney disease, or unspecified chronic kidney disease; N18.9 Chronic kidney disease, unspecified; E78.00 Pure hypercholesterolemia, unspecified; Z86.711 Personal history of pulmonary embolism; Z87.442 Personal history of urinary calculi
CPT/HCPCS: 71045; 80048; 84484; 85025; 93005; 96361; 96374; 99284; J1885; J7030